=== PATIENT | male | born 1960 | race Caucasian/White ===

== ENCOUNTER 2017-06-15 10:10 | Inpatient (IN) | payer OTHER ==
[2017-06-15] MEDS ORDERED: IPRATROPIUM-ALBUTEROL 3 ML NEB INHALATION PRN (15:14)
--- NOTE | 2017-06-15 15:53 | XR ---
EXAMINATION TYPE: XR chest 2V DATE OF EXAM: 06/15/2017 COMPARISON: 07/13/2013 TECHNIQUE: PA and lateral views submitted. HISTORY: Shortness of breath FINDINGS: The lungs are clear and there is no pneumothorax, pleural effusion, or focal pneumonia. Hypertrophi c change of the spine noted. Suggestion of gastrostomy tube. IMPRESSION: 1. No acute process.
[2017-06-15] MEDS ORDERED: LIPASE 5,000/PROTEASE 17,000/AMYLASE 27,0000 PO PRN (16:04)
[2017-06-15 16:11] LABS: Basophils % (A) 0 %; Eosinophils % (A) 0 %; HCT 42.1 % (39.0-53.0); HGB 13.5 gm/dL (13.0-17.5); Lymphocytes # (A) 0.8 k/uL (1.0-4.8); Lymphocytes % (A) 12 %; MCH 31.4 pg (25.0-35.0); Mean Platelet Volume 7.3; Monocytes # (A) 0.2 k/uL (0-1.0); Monocytes % (A) 3 %; Neutrophils # (A) 5.6 k/uL (1.3-7.7); Neutrophils % (A) 84 %; Platelet Count 224 k/uL (150-450); RDW 14.2 % (11.5-15.5); WBC 6.7 k/uL (3.8-10.6)
[2017-06-15] MEDS ORDERED: ZENPEP 20000 UNIT PO PRN (16:13)
[2017-06-15] MEDS: SODIUM CHLORIDE 0.9% 1,000 ML IV SCH (16:17)
[2017-06-15 16:21] LABS: ALT 38 U/L (21-72); AST 18 U/L (17-59); Alkaline Phosphatase 71 U/L (38-126); Anion Gap 10 mmol/L; Blood Urea Nitrogen 28 mg/dL (9-20); Calcium 9.1 mg/dL (8.4-10.2); Carbon Dioxide 22 mmol/L (22-30); Chloride 107 mmol/L (98-107); Glucose 132 mg/dL (74-99); Magnesium 1.8 mg/dL (1.6-2.3); Potassium 4.7 mmol/L (3.5-5.1); Sodium 139 mmol/L (137-145); Total Bilirubin 0.5 mg/dL (0.2-1.3); Total Protein 6.8 g/dL (6.3-8.2)
[2017-06-15] MEDS: LOSARTAN 50 MG TAB PO SCH (16:46)
[2017-06-15] MEDS: BUMETANIDE 1 MG TAB PO SCH (16:46)
[2017-06-15] MEDS: LEVOFLOXACIN 750 MG TAB PO SCH (16:46)
[2017-06-15] MEDS: MULTIVITAMINS, THERA 1 EACH TAB PO SCH (16:46)
[2017-06-15] MEDS: CHLORPHEN-HYDROcod 8-10mg/5ml 5 ML ORAL.SYRG PO SCH ×2 (16:48→22:12)
[2017-06-15] MEDS: IPRATROPIUM-ALBUTEROL 3 ML NEB INHALATION SCH ×2 (16:55→20:51)
[2017-06-15] MEDS ORDERED: LIPASE 5,000/PROTEASE 17,000/AMYLASE 27,0000 PO SCH (17:30)
[2017-06-15] MEDS: ZENPEP 20000 UNIT PO SCH (18:14)
[2017-06-15] MEDS: methylPREDNISolone SOD SUCCI 125 MG/2 ML VIAL IV SCH ×2 (18:15→23:21)
[2017-06-15] MEDS ORDERED: IBUPROFEN 800 MG TAB PO PRN (20:12)
[2017-06-15] MEDS: HYDROcodone/APAP 10-325MG 1 EACH TAB PO PRN (20:42)
[2017-06-15] MEDS: MONTELUKAST 10 MG TAB PO SCH (20:42)
[2017-06-15] MEDS: BUDESONIDE 1 MG/2 ML NEBU INHALATION SCH (20:51)
[2017-06-15] MEDS: FORMOTEROL FUMARATE 20 MCG/2 ML NEBU INHALATION SCH (20:51)
--- NOTE | 2017-06-15 23:00 | HP ---
HISTORY AND PHYSICAL DATE OF ADMISSION: 06/15/2017 PRESENTING COMPLAINT: Short of breath, wheezing. HISTORY OF PRESENTING COMPLAINT: A very pleasant 57-year-old patient of Dr. 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 Velasco. Chronic stable medical conditions include chronic pancreatitis, has had a pancreatic stent; obstructive sleep apnea, does not use CPAP machine, has a feeding tube which he supplements with oral feeding, insomnia and bilateral tinnitus. A week ago, patient developed increasing wheezing, cough, a little sputum. No fever. He went down to see Dr. Velasco in the office, was given antibiotics started on Zithromax. Symptoms really did not improve. Went back 2 days ago and patient was given a steroid injection and has to come back. Patient is still having some wheezing, shortness of breath with a cough. No fever. Decreased appetite. Hence, patient is admitted from the office. REVIEW OF SYSTEMS: CONSTITUTIONAL: Tired. HEENT: None. RESPIRATORY: As above. CARDIOVASCULAR: None. GASTROINTESTINAL: None. GENITOURINARY: None. MUSCULOSKELETAL: None. DERMATOLOGICAL: None. HEMATOLOGIC: None. LYMPHATIC: None. PSYCHIATRY: None. NEUROLOGICAL: None. PAST MEDICAL HISTORY: Chronic pancreatitis, chronic pain syndrome, asthma/COPD, pancreatic stent, obstructive sleep apnea, does not use CPAP machine; feeding tube, kidney stones, insomnia, bilateral tinnitus. PAST SURGICAL HISTORY: Cholecystectomy, orthopedic surgery feeding tube, EGD, colonoscopy, bronchoscopy, lipoma excision, left proximal humerus, left knee arthroscopy, right hand crush injury with surgeries. SOCIAL HISTORY: Lives at home with his and a daughter, grandson. Has a feeding tube. No smoking. No alcohol. FAMILY HISTORY: Father had congestive heart failure, also diabetes. HOME MEDICATIONS: 1. Zenpep 5000 units/20,000 units p.o. 5 times a day. 2. Vitamin A 8000 units p.o. daily. 3. Multivitamin 1 tablet p.o. daily. 4. Cozaar 50 mg p.o. daily. 5. Vitamin D3 1000 units p.o. daily. 6. Singulair 10 mg q.h.s. 7. Motrin 800 mg p.o. t.i.d. p.r.n. 8. [place] 10 1 tablet every 6 hours p.r.n. 9. Bumex 2 mg p.o. daily. 10.Symbicort 160/4.5, 2 puffs b.i.d. ALLERGIES: None. EXAMINATION: Temperature 97.7, pulse 73, respirations 16, blood pressure 140/85, pulse ox 96% on room air. GENERAL APPEARANCE: Well-built, BMI of 38. Sitting up, tired-appearing. EYES: Pupils equal. Conjunctivae normal. HEENT: Oral cavity normal. NECK: JVD not raised. Mass not palpable. RESPIRATORY: Effort increased. LUNGS: Decreased breath sounds. Some expiratory wheezing. CARDIOVASCULAR: First and second sounds normal. No edema. ABDOMEN: Soft, nontender. Liver and spleen not palpable. LYMPHATIC: No lymph node palpable in neck or axillae. PSYCHIATRY: Alert and oriented x3. Mood and affect normal. NEUROLOGICAL: Pupils equal. Cranial nerves grossly intact. Power and sensation grossly intact. INVESTIGATIONS: White count 6.7, hemoglobin 13.5. Potassium 4.7, BUN 28, creatinine 0.8. ASSESSMENT: 1. Moderate persistent asthma with acute exacerbation with possible acute bronchitis, having failed outpatient treatment with a course of antibiotic and steroids. 2. Obesity; BMI 38. 3. Chronic pancreatitis. Patient on enzyme supplements. 4. Chronic pain syndrome. 5. Obstructive sleep apnea, does not use a CPAP machine. 6. Chronic feeding tube. 7. Kidneys stones, asymptomatic. 8. Chronic insomnia. 9. Bilateral chronic tinnitus. PLAN: Home medications are resumed. Patient is put on nebulized bronchodilators, steroids, Lovenox for DVT prophylaxis. Pulmonary was consulted. Care was discussed with the patient. The patient may have a significant viral component. I am not sure. Antibiotics will be held. Will await further input from Pulmonary. MMODL / IJN: [id number] /
[2017-06-16] MEDS: IPRATROPIUM-ALBUTEROL 3 ML NEB INHALATION SCH ×6 (00:24→19:33)
[2017-06-16] MEDS: methylPREDNISolone SOD SUCCI 125 MG/2 ML VIAL IV SCH ×4 (06:01→23:52)
[2017-06-16] MEDS: SODIUM CHLORIDE 0.9% 1,000 ML IV SCH (06:01)
[2017-06-16] MEDS: BUDESONIDE 1 MG/2 ML NEBU INHALATION SCH ×2 (07:34→19:33)
[2017-06-16] MEDS: FORMOTEROL FUMARATE 20 MCG/2 ML NEBU INHALATION SCH ×2 (07:34→19:33)
[2017-06-16 07:37] LABS: Basophils % (A) 0 %; Eosinophils % (A) 0 %; HCT 42.3 % (39.0-53.0); HGB 13.4 gm/dL (13.0-17.5); Lymphocytes # (A) 0.6 k/uL (1.0-4.8); Lymphocytes % (A) 9 %; MCH 30.9 pg (25.0-35.0); MCHC 31.6 g/dL (31.0-37.0); MCV 97.8 fL (80.0-100.0); Mean Platelet Volume 7.2; Monocytes # (A) 0.2 k/uL (0-1.0); Monocytes % (A) 3 %; Neutrophils # (A) 6.1 k/uL (1.3-7.7); Neutrophils % (A) 87 %; Platelet Count 265 k/uL (150-450); RBC 4.33 m/uL (4.30-5.90); RDW 13.7 % (11.5-15.5); WBC 6.9 k/uL (3.8-10.6)
[2017-06-16 07:47] LABS: ALT 38 U/L (21-72); AST 14 U/L (17-59); Albumin 3.8 g/dL (3.5-5.0); Alkaline Phosphatase 70 U/L (38-126); Anion Gap 11 mmol/L; Blood Urea Nitrogen 24 mg/dL (9-20); Calcium 9.1 mg/dL (8.4-10.2); Carbon Dioxide 24 mmol/L (22-30); Chloride 103 mmol/L (98-107); Glucose 142 mg/dL (74-99); Magnesium 1.7 mg/dL (1.6-2.3); Sodium 138 mmol/L (137-145); Total Bilirubin 0.5 mg/dL (0.2-1.3); Total Protein 6.4 g/dL (6.3-8.2)
[2017-06-16] MEDS: ZENPEP 20000 UNIT PO SCH ×3 (08:02→17:43)
[2017-06-16] MEDS: CHLORPHEN-HYDROcod 8-10mg/5ml 5 ML ORAL.SYRG PO SCH ×2 (08:35→22:04)
[2017-06-16] MEDS: ENOXAPARIN 40 MG/0.4 ML SYRINGE SQ SCH (08:36)
[2017-06-16] MEDS: HYDROcodone/APAP 10-325MG 1 EACH TAB PO PRN ×3 (08:36→22:06)
[2017-06-16] MEDS: BUMETANIDE 1 MG TAB PO SCH (08:36)
[2017-06-16] MEDS: CHOLECALCIFEROL 1,000 UNIT TAB PO SCH (08:37)
[2017-06-16] MEDS: LOSARTAN 50 MG TAB PO SCH (08:37)
[2017-06-16] MEDS ORDERED: NON-FORMULARY DRUG (Bumetanide [Bumex] 2 MG) PO SCH (09:00)
[2017-06-16] MEDS: MULTIVITAMINS, THERA 1 EACH TAB PO SCH (11:58)
--- NOTE | 2017-06-16 15:34 | P.CNPUL ---
History of Present Illness Consult date: 06/16/17 Reason for consult: dyspnea, asthma History of present illness: 57-year-old male patient with known history of severe persistent bronchial asthma maintained on a combination of Symbicort and Singulair and Ventolin rescue inhaler listed basis. The patient was doing well until around 10 days ago when he started having increased asthma exacerbation. He had increased chest that is so wheezing and shortness of breath and he was progressively getting worse. No fever or chills. No hemoptysis. No pleurisy. He presented to the office and he was seen by Sapphire Morgan NP and the patient was given a Depo -Medrol shot and a prednisone burst taper starting with 40 mg by mouth daily and he was given a course of Z-Delfino. 3-4 days following that the patient was not getting better. He came back to the office and he was seen by Dr. Orr where he was given another Depo-Medrol shot and he was asked to increase his prednisone dose up to 60 mg by mouth daily. He failed to improve and he came back to the office and at that point he was hospitalized for acute asthma exacerbation and has failed outpatient treatment. The patient was started on systemic steroids. The patient was started on Levaquin. Chest x-rays. Any acute pulmonary infiltrates. Influenza screen has not been done yet. No chills. No fever. No swelling lower extremities. No orthopnea. No sick contacts. No exposure or inhalation of any toxic respiratory agents. No nausea. No vomiting. No abdominal pain. No sinus disease pain no nasal polyposis. Review of Systems Constitutional: no excess weight gain, no excess weight loss, no loss of appetite, no fever, no fatigue, diminished activity, fatigue Eyes Eyes: no eye pain, no blurry vision, no eye redness, no eye itchiness, no eye swelling, no eye discharge ENMT ENMT: no ear pain, no ear discharge, no hearing loss, no swelling, no sore throat, no hoarseness, no mouth lesions, no nasal discharge, sinus pressure, congestion, runny nose Cardiovascular Cardiovascular: no chest pain, no rapid heart rate, no cyanosis, no pallor Respiratory Respiratory: no pain with respiration, normal breathing sounds, normal respiration rate, cough, mucoid sputum, wheezing, chest tightness, difficulty breathing Gastrointestinal GI: no difficulty swallowing, no abdominal pain, no nausea, no vomiting, no diarrhea, no constipation, no blood in stools Genitourinary General: no blood in urine, no pain during urination, no increased frequency of urination, no voiding urgency Musculoskeletal Musculoskeletal: no soft tissue swelling, no joint swelling, no limited motion, no myalgia Skin Skin: no pain, no itchiness, no skin redness, no rash, no hives, no skin lesions , no swelling, no bruising Neurological symptoms Neuro: no numbness, no weakness, no tingling, no burning, no shooting pain, no headache, no diziness, no loss of consciousness Endocrine Endocrine: no increased thirst, no temperature intolerance Psychiatric Psych: no depression, no sleep disturbances, feeling safe in relationship, no alcohol abuse Hematologic/Lymphatic Hematologic/Lymphatic no swollen glands Allergic/Immunologic Allergy/Immunologic: no sinus pressure, no itching Past Medical History Past Medical History: Asthma, Hypertension, Osteoarthritis (OA), Pneumonia, Sleep Apnea/CPAP/BIPAP Additional Past Medical History / Comment(s): History of chronic pancreatitis was seen and evaluated continue [facility], chronic bronchial asthma moderately severe in nature, degenerative arthritis, obstructive sleep apnea, gout, nephrolithiasis, chronic insomnia, tinnitus bilaterally, history of right hand crush injury requiring multiple surgeries, chronic back pain, hypertension , acid reflux History of Any Multi-Drug Resistant Organisms: None Reported Past Surgical History: Cholecystectomy, Orthopedic Surgery Additional Past Surgical History / Comment(s): Feeding tube, EGD/colonoscopy, bronchoscopy, lipoma excision L proximal humerus, left knee arthroscopies Past Anesthesia/Blood Transfusion Reactions: No Reported Reaction Smoking Status: Never smoker - Past Family History Father Family Medical History: Congestive Heart Failure (CHF), Diabetes Mellitus Additional Family Medical History / Comment(s): Father at the age of 75 yrs from CHF. Mother Family Medical History: Congestive Heart Failure (CHF), Diabetes Mellitus Additional Family Medical History / Comment(s): Mother at the age of 84 yrs from CHF Medications and Allergies Home Medications Medication Instructions Recorded Confirmed Type Montelukast [Singulair] 10 mg PO HS 01/16/14 06/15/17 History Budesonide-Formot 160-4.5 Mcg 2 puff INHALATION BID 12/30/15 06/15/17 History [Symbicort 160-4.5 Mcg Inhaler] Bumetanide [BUMEX] 2 mg PO DAILY 12/30/15 06/15/17 History HYDROcodone/APAP 10-325MG [[place] 1 tab PO Q6H PRN 12/30/15 06/15/17 History 10-325] Cholecalciferol [Vitamin D3] 1,000 unit PO DAILY 06/15/17 06/15/17 History Ibuprofen [Motrin] 800 mg PO TID PRN 06/15/17 06/15/17 History Lipase/Protease/Amylase [Zenpep Dr 20,000 units PO 5XD 06/15/17 06/15/17 History 5,000 Units Capsule] Losartan Potassium [Cozaar] 50 mg PO DAILY 06/15/17 06/15/17 History Multivitamins, Thera [Multivitamin 1 tab PO DAILY 06/15/17 06/15/17 History (formulary)] Vitamin A 8,000 unit PO DAILY 06/15/17 06/15/17 History Allergies Allergy/AdvReac Type Severity Reaction Status Date / Time No Known Allergies Allergy Verified 06/15/17 13:57 Physical Exam Vitals: Vital Signs Temp Pulse Pulse Resp BP Pulse Ox 06/16/17 14:56 99.1 F 93 18 123/78 97 06/16/17 11:44 80 06/16/17 11:33 80 06/16/17 08:00 86 18 06/16/17 07:53 76 06/16/17 07:46 72 06/16/17 07:34 76 06/16/17 07:00 97.9 F 86 18 134/83 96 06/16/17 04:59 72 06/16/17 04:40 72 06/16/17 00:36 76 06/16/17 00:24 72 06/15/17 23:00 98.0 F 87 16 140/96 93 L 06/15/17 21:09 76 06/15/17 21:03 72 06/15/17 21:02 72 06/15/17 20:53 72 06/15/17 17:04 76 06/15/17 16:55 76 06/15/17 16:00 73 16 Intake and Output 06/16/17 06/16/17 06/16/17 06:59 14:59 22:59 Intake Total 900 240 Balance 900 240 Intake: Intake, IV Titration 600 Amount Sodium Chloride 0.9% 1, 600 000 ml @ 75 mls/hr IV . [id number] [facility] Rx#:[id number] Oral 300 240 Other: Voiding Method Toilet Toilet # Voids 2 Weight 120 kg Patient Weight 06/17/17 06:59 Weight 120 kg Constitutional General Appearance: appears stated age, obesity Level of Distress: no acute distress Ambulation: ambulating normally ENMT Nasal Mucosa: no discharge, pale, swollen, edematous Septum: not markedly deformed Turbinates: normal turbinate Lips, Teeth, and Gums: normal lips, normal dentition, normal gums Oral Mucosa: no ulcer, no mass, no pallor, moist, no cyanosis, no inflammation, no swelling, no rash, no leukoplakia Tongue: no erythema, no lesions, no enlargement, no swelling, no deviation Posterior pharynx: no enlargement, no exudate, no white patches, no ulcers, no mass, erythema Neck Neck: supple, trachea midline, no masses, Full ROM Thyroid: no enlargement, non-tender, no nodules Jugular Veins: normal jugular venous pressure Lungs Respiratory effort: dyspneic Inspection: normal chest wall expansion, normal curve, no deformity, no tenderness, no swelling Auscultation: no rales/crackles, no rhonchi, wheezing,expiratory,bilaterally, midlung yepez Cardiovascular Precordial Exam: non displaced focal PMI, no heaves, no precordial thrills Heart Rate And Rhythm: normal heart rate and rhythm Heart Sounds: normal s1, no physiologically split S2, no pericardial friction rub, no gallop, no click Systolic Murmur: no systolic murmurs Observation/Palpation of peripheral vascular system: no cyanosis, no edema, normal dorsalis pedis, normal posterior tibialis Abdomen Inspection and Palpation: soft, non-distended, no tenderness, no masses Liver: non-tender, no hepatomegaly Spleen: non-tender, no splenomegaly Bowel Sounds: normal, no abdominal bruits Lymphatic: no cervical LAD, no supraclavicular LAD Musculoskeletal: Motor Strength and Tone: normal motor strength, normal bulk, normal tone Gait and Station: normal gait Joints, Bones, and Muscles: normal movement of all extremities, no bony abnormalities, no contractures, no malalignment, no tenderness Extremities Inspection/Palpation of digits and nails: no clubbing, no cyanosis, no petechiae , no infection, no nodular lesions, no ischemia, no edema Skin Inspection and palpation: no rash, no lesions, no jaundice, normal turgor Neurologic Mental Status/Orientation: oriented to person, oriented to place, oriented to problem/situation, oriented to time Mood/Affect: normal mood, normal affect Results - Laboratory Findings CBC and BMP: 06/16/17 07:06 06/16/17 07:06 Abnormal lab findings: Abnormal Labs 06/15/17 06/15/17 06/16/17 15:44 15:44 07:06 Lymphocytes # 0.8 L 0.6 L BUN 28 H Glucose 132 H AST 06/16/17 07:06 Lymphocytes # BUN 24 H Glucose 142 H AST 14 L - Diagnostic Findings Chest x-ray: image reviewed Assessment and Plan Plan: Assessment 1 moderately severe bronchial asthma with an acute exacerbation that has failed outpatient therapy. 2 shortness of breath again to above 3 hypertension 4 history of chronic pancreatitis 5 obstructive sleep apnea 6 chronic back pain 7 history of nephrolithiasis Plan Agree on the current treatment. Continue bronchodilators discontinue steroids. Influenza screen. Chest x-ray is negative. Continue following up this patient and anticipate recovery within next 24-48 hours. We'll follow.
[2017-06-16] MEDS: LEVOFLOXACIN 750 MG TAB PO SCH (15:40)
--- NOTE | 2017-06-16 15:43 | PN ---
PROGRESS NOTE DATE OF SERVICE: 06/16/17 ATTENDING NOTE: Patient seen and examined by me. I discussed with nurse practitioner, Juanytrista. Patient admitted with asthma exacerbation. Some wheezing and cough still present. PHYSICAL EXAMINATION: Temperature 97.9, pulse 56, respiratory 18, blood pressure 134/83, pulse ox 96% on room air. LUNGS: Decreased breath sounds. Prolonged expiration and wheezing. CARDIOVASCULAR: First and second sounds normal. The patient is sitting up in a chair, did tolerate his meals. ASSESSMENT: 1. Moderate persistent asthma with acute exacerbation from acute bronchitis and failed outpatient treatment, slow to respond. 2. Other medical problems. PLAN: Continue medication and treatment plan including nebulized and steroids. Follow with Pulmonary. MMODL / IJN: [id number] /
--- NOTE | 2017-06-16 16:13 | P.PN ---
Progress Note - Text Progress Note Date: 06/16/17 DATE OF SERVICE: 06/16/2017 PRESENTING COMPLAINT: Increasing shortness of breath HISTORY OF PRESENT ILLNESS: 57-year-old male was followed by Dr. Velasco developed increasing wheezing cough with some sputum production. Saw Dr. Orr in the office received antibiotic therapy symptoms did not improve with back 2 days ago and was given a steroid injection and continues to have some wheezing shortness of breath with a cough admitted for the same. INTERVAL HISTORY: 06/16/2017 Patient lying in bed appears somewhat uncomfortable. States his breathing is not much better than it was when he arrived yesterday. Continues to have some wheezing cough with sputum production. No fever. Appetite is low but states his appetite is generally low. Ambulatory in the room and patel ways. Last BM 06/16/2017. REVIEW OF SYSTEMS: Done for constitutional ,cardiovascular, GI, pulmonary with relevant findings as above. CURRENT MEDICATIONS [place], DuoNeb, Pulmicort, Bumex, Tussionex, cholecalciferol, Lovenox, Perforomist, Motrin, Levaquin, Cozaar 50 g by mouth daily, soy [place] 61 g IV every 6 hours, singular 10 mg by mouth at bedtime, Jake Pep DR 20,000 units. PHYSICAL EXAM VITAL SIGNS: Temperature 97.9, pulse 86, respiratory rate 18, blood pressure 134/83, oxygen saturation 96% on room air. GENERAL APPEARANCE: Lying in bed, not in distress. EYES: Pupils equal. Conjunctiva normal. NECK: JVD not raised. Mass not palpable. RESPIRATORY: Respiratory effort increased. Lungs diminished with expiratory wheezing to auscultation. CARDIOVASCULAR: First and second sounds normal. No edema. ABDOMEN: Soft. Liver and spleen not palpable. No tenderness. No mass palpable. PSYCHIATRY: Alert and oriented x3. Mood and affect normal. INVESTIGATIONS: LABS: CBC unremarkable, BUN 24, glucose 142, ASSESSMENT: -Moderate persistent asthma with acute exacerbation and possible acute bronchitis having failed outpatient treatment with a course of antibiotics and steroids. -Obesity, body mass index 38. -Chronic pancreatitis. Patient on enzyme supplement. -Chronic pain syndrome. -Obstructive sleep apnea does not use a CPAP machine. -Chronic feeding tube. -Kidney stones, asymptomatic. -Chronic insomnia. -Bilateral chronic tinnitus. PLAN: Continue current treatment plan with bronchodilators, steroids discontinued per pulmonology. Plan of care discussed with the patient at bedside we will continue to follow closely. 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 Millan
[2017-06-16] MEDS: MONTELUKAST 10 MG TAB PO SCH (22:04)
[2017-06-16] MEDS: ZOLPIDEM 5 MG TAB PO SCH (22:05)
[2017-06-17] MEDS: IPRATROPIUM-ALBUTEROL 3 ML NEB INHALATION SCH ×7 (00:05→23:28)
[2017-06-17] MEDS: methylPREDNISolone SOD SUCCI 125 MG/2 ML VIAL IV SCH ×2 (05:25→12:17)
[2017-06-17] MEDS: BUDESONIDE 1 MG/2 ML NEBU INHALATION SCH ×2 (07:11→20:56)
[2017-06-17] MEDS: FORMOTEROL FUMARATE 20 MCG/2 ML NEBU INHALATION SCH ×2 (07:13→20:57)
[2017-06-17] MEDS: ZENPEP 20000 UNIT PO SCH ×3 (07:45→17:52)
[2017-06-17] MEDS: ENOXAPARIN 40 MG/0.4 ML SYRINGE SQ SCH (07:46)
[2017-06-17] MEDS: BUMETANIDE 1 MG TAB PO SCH (07:46)
[2017-06-17] MEDS: MULTIVITAMINS, THERA 1 EACH TAB PO SCH (07:47)
[2017-06-17] MEDS: CHOLECALCIFEROL 1,000 UNIT TAB PO SCH (07:47)
[2017-06-17] MEDS: CHLORPHEN-HYDROcod 8-10mg/5ml 5 ML ORAL.SYRG PO SCH ×2 (07:51→20:32)
[2017-06-17] MEDS: LOSARTAN 50 MG TAB PO SCH (07:53)
[2017-06-17] MEDS: HYDROcodone/APAP 10-325MG 1 EACH TAB PO PRN ×2 (09:16→17:54)
--- NOTE | 2017-06-17 13:46 | P.PN ---
Subjective Progress Note Date: 06/17/17 Principal diagnosis: Acute exacerbation of severe persistent chronic bronchial asthma 57-year-old male patient with known history of severe persistent bronchial asthma maintained on a combination of Symbicort and Singulair and Ventolin rescue inhaler listed basis. The patient was doing well until around 10 days ago when he started having increased asthma exacerbation. He had increased chest that is so wheezing and shortness of breath and he was progressively getting worse. No fever or chills. No hemoptysis. No pleurisy. He presented to the office and he was seen by Sapphire Poole NP and the patient was given a Depo -Medrol shot and a prednisone burst taper starting with 40 mg by mouth daily and he was given a course of Z-Delfino. 3-4 days following that the patient was not getting better. He came back to the office and he was seen by Dr. Velasco where he was given another Depo-Medrol shot and he was asked to increase his prednisone dose up to 60 mg by mouth daily. He failed to improve and he came back to the office and at that point he was hospitalized for acute asthma exacerbation and has failed outpatient treatment. The patient was started on systemic steroids. The patient was started on Levaquin. Chest x-rays. Any acute pulmonary infiltrates. Influenza screen has not been done yet. No chills. No fever. No swelling lower extremities. No orthopnea. No sick contacts. No exposure or inhalation of any toxic respiratory agents. No nausea. No vomiting. No abdominal pain. No sinus disease pain no nasal polyposis. The patient is seen again today 06/17/2017 in follow-up on the regular medical floor. He is awake and alert in no acute distress. He is resting quite comfortably in bed. He states he is somewhat better today as compared to yesterday. Not quite back to his baseline. He is still quite dyspneic on minimal exertion. He is still bronchospastic and wheezing. He is maintaining good O2 saturations in the 90s on room air. He's been afebrile. Influenza screen was negative. Blood cultures reveal no growth to date. He is continued on DuoNeb inhalations every 4 hours and when necessary, Pulmicort and formoterol inhalations twice a day. Tussionex for his cough, IV Solu-Medrol and Singulair. Objective - Vital Signs Vital signs: Vital Signs Temp 98 F 06/17/17 07:00 Pulse 96 06/17/17 11:17 Resp 20 06/17/17 07:00 BP 138/90 06/17/17 07:00 Pulse Ox 93 L 06/17/17 07:00 Intake & Output 06/16/17 06/17/17 06/17/17 18:59 06:59 18:59 Intake Total 240 1140 Balance 240 1140 Weight 120 kg Intake: Oral 240 1140 Other: Voiding Method Toilet Toilet Toilet # Voids 3 2 - Exam Constitutional General Appearance: appears stated age, obesity Level of Distress: no acute distress Ambulation: ambulating normally ENMT Nasal Mucosa: no discharge, pale, swollen, edematous Septum: not markedly deformed Turbinates: normal turbinate Lips, Teeth, and Gums: normal lips, normal dentition, normal gums Oral Mucosa: no ulcer, no mass, no pallor, moist, no cyanosis, no inflammation, no swelling, no rash, no leukoplakia Tongue: no erythema, no lesions, no enlargement, no swelling, no deviation Posterior pharynx: no enlargement, no exudate, no white patches, no ulcers, no mass, erythema Neck Neck: supple, trachea midline, no masses, Full ROM Thyroid: no enlargement, non-tender, no nodules Jugular Veins: normal jugular venous pressure Lungs Respiratory effort: dyspneic Inspection: normal chest wall expansion, normal curve, no deformity, no tenderness, no swelling Auscultation: no rales/crackles, no rhonchi, wheezing,expiratory,bilaterally, midlung yepez Cardiovascular Precordial Exam: non displaced focal PMI, no heaves, no precordial thrills Heart Rate And Rhythm: normal heart rate and rhythm Heart Sounds: normal s1, no physiologically split S2, no pericardial friction rub, no gallop, no click Systolic Murmur: no systolic murmurs Observation/Palpation of peripheral vascular system: no cyanosis, no edema, normal dorsalis pedis, normal posterior tibialis Abdomen Inspection and Palpation: soft, non-distended, no tenderness, no masses Liver: non-tender, no hepatomegaly Spleen: non-tender, no splenomegaly Bowel Sounds: normal, no abdominal bruits Lymphatic: no cervical LAD, no supraclavicular LAD Musculoskeletal: Motor Strength and Tone: normal motor strength, normal bulk, normal tone Gait and Station: normal gait Joints, Bones, and Muscles: normal movement of all extremities, no bony abnormalities, no contractures, no malalignment, no tenderness Extremities Inspection/Palpation of digits and nails: no clubbing, no cyanosis, no petechiae , no infection, no nodular lesions, no ischemia, no edema Skin Inspection and palpation: no rash, no lesions, no jaundice, normal turgor Neurologic Mental Status/Orientation: oriented to person, oriented to place, oriented to problem/situation, oriented to time Mood/Affect: normal mood, normal affect - Labs CBC & Chem 7: 06/16/17 07:06 06/16/17 07:06 Labs: Microbiology - Last 24 Hours (Table) 06/15/17 16:19 Blood Culture - Preliminary Blood No Growth after 24 hours 06/15/17 15:44 Blood Culture - Preliminary Blood No Growth after 24 hours Assessment and Plan Assessment: Assessment 1 moderately severe bronchial asthma with an acute exacerbation that has failed outpatient therapy. 2 shortness of breath again to above 3 hypertension 4 history of chronic pancreatitis 5 obstructive sleep apnea 6 chronic back pain 7 history of nephrolithiasis Plan The patient was seen and evaluated by Dr. Salguero. The patient is improved but still not near his baseline. He is still quite bronchospastic and wheezy. He is maintaining good O2 saturations on room air. We'll continue with his current treatment including IV Solu-Medrol, DuoNeb's, Pulmicort and [place] inhalations twice a day, Singulair, Tussionex. He is on empiric antibiotics in the form of Levaquin. He is on Lovenox for DVT prophylaxis. We will increase his activity as tolerated. We'll continue to follow make further recommendations based on his clinical status. Probably needs another 24-48 hours. I, the cosigning physician, have performed a history and physical examination on the patient. Lung sounds have bilateral end expiratory wheezing. Diminished. Maintaining good O2 saturations in the 90s on room air. I have discussed the assessment and plan of care with my nurse practitioner, Sapphire Poole. I attest the above documented note as dictated by her.
--- NOTE | 2017-06-17 17:15 | P.PN ---
Progress Note - Text Progress Note Date: 06/17/17 DATE OF SERVICE: 06/17/2017 PRESENTING COMPLAINT: Increasing shortness of breath HISTORY OF PRESENT ILLNESS: 57-year-old male was followed by Dr. Velasco developed increasing wheezing cough with some sputum production. Saw Dr. Orr in the office received antibiotic therapy symptoms did not improve with back 2 days ago and was given a steroid injection and continues to have some wheezing shortness of breath with a cough admitted for the same. INTERVAL HISTORY: 06/17/2017: Patient sitting up in a chair appears comfortable. Breathing is improved some. Remains afebrile. Continues to have a very coarse cough with minor sputum production. Appetite is low eating approximately 50% of what we give him. Ambulatory in the room and patel ways. Last BM 06/16/2017. 06/16/2017 Patient lying in bed appears somewhat uncomfortable. States his breathing is not much better than it was when he arrived yesterday. Continues to have some wheezing cough with sputum production. No fever. Appetite is low but states his appetite is generally low. Ambulatory in the room and patel ways. Last BM 06/16/2017. REVIEW OF SYSTEMS: Done for constitutional ,cardiovascular, GI, pulmonary with relevant findings as above. CURRENT MEDICATIONS [place], DuoNeb, Pulmicort, Bumex, Tussionex, cholecalciferol, Lovenox, Perforomist, Motrin, Levaquin, Cozaar 50 g by mouth daily, Solu-Medrol 60 mg IV every 6 hours, singular 10 mg by mouth at bedtime, Jake Pep DR 20,000 units. PHYSICAL EXAM VITAL SIGNS: Temperature 97.9, pulse 86, respiratory rate 18, blood pressure 134/83, oxygen saturation 96% on room air. GENERAL APPEARANCE: Sitting up in a chair, not in distress. EYES: Pupils equal. Conjunctiva normal. NECK: JVD not raised. Mass not palpable. RESPIRATORY: Respiratory effort increased. Lungs diminished with expiratory wheezing to auscultation. CARDIOVASCULAR: First and second sounds normal. No edema. ABDOMEN: Soft. Liver and spleen not palpable. No tenderness. No mass palpable. PSYCHIATRY: Alert and oriented x3. Mood and affect normal. INVESTIGATIONS: LABS: None new ASSESSMENT: -Moderate persistent asthma with acute exacerbation and possible acute bronchitis having failed outpatient treatment with a course of antibiotics and steroids. -Obesity, body mass index 38. -Chronic pancreatitis. Patient on enzyme supplement. -Chronic pain syndrome. -Obstructive sleep apnea does not use a CPAP machine. -Chronic feeding tube. -Kidney stones, asymptomatic. -Chronic insomnia. -Bilateral chronic tinnitus. PLAN: Continue current treatment plan with bronchodilators, continue current antibiotic therapy. Patient is not quite back to his baseline, discharge planning possibly in the next 24-48 hours. Plan of care discussed with the patient at bedside we will continue to follow closely. SCIENCE WRITER statement: Patient was seen and examined by nurse practitioner Vanessa Gillis and all elements of the case discussed with attending Dr. Millan
[2017-06-17] MEDS: LEVOFLOXACIN 750 MG TAB PO SCH (18:11)
--- NOTE | 2017-06-17 18:20 | PN ---
PROGRESS NOTE DATE OF SERVICE: 06/17/2017. ATTENDING NOTE: Patient was seen and examined by me. I discussed with my nurse practitioner, Ms. Gillis. Patient admitted with asthma exacerbation. Breathing is getting better. Minimal sputum production. Tolerating his diet. EXAMINATION: Temperature 98, pulse 105, respirations 20, blood pressure 130/90, pulse ox 93% on room air. Sitting up on a chair. LUNGS: Improved air entry. Mild wheezing. CARDIOVASCULAR: First and second sounds normal. INVESTIGATIONS: Potassium 4.0. MEDICATIONS: 1. IV Solu-Medrol. 2. DuoNeb. 3. Levaquin. ASSESSMENT: Moderate persistent asthma with acute exacerbation. PLAN: Patient is clinically responding. Follow with Pulmonary. MMODL / IJN: [id number] /
[2017-06-17] MEDS: ZOLPIDEM 5 MG TAB PO SCH (20:32)
[2017-06-17] MEDS: MONTELUKAST 10 MG TAB PO SCH (20:32)
[2017-06-17] MEDS: methylPREDNISolone SOD SUCCI 40 MG/ML 1 ML VIAL IV SCH (23:10)
[2017-06-18] MEDS: IPRATROPIUM-ALBUTEROL 3 ML NEB INHALATION SCH ×5 (03:50→20:33)
[2017-06-18] MEDS: ZENPEP 20000 UNIT PO SCH ×3 (07:27→16:56)
[2017-06-18] MEDS: HYDROcodone/APAP 10-325MG 1 EACH TAB PO PRN ×2 (07:27→17:01)
[2017-06-18] MEDS: methylPREDNISolone SOD SUCCI 40 MG/ML 1 ML VIAL IV SCH ×2 (07:29→16:57)
[2017-06-18] MEDS: CHLORPHEN-HYDROcod 8-10mg/5ml 5 ML ORAL.SYRG PO SCH ×2 (07:31→21:20)
[2017-06-18] MEDS: ENOXAPARIN 40 MG/0.4 ML SYRINGE SQ SCH (07:34)
[2017-06-18] MEDS: MULTIVITAMINS, THERA 1 EACH TAB PO SCH (07:34)
[2017-06-18] MEDS: LOSARTAN 50 MG TAB PO SCH (07:35)
[2017-06-18] MEDS: CHOLECALCIFEROL 1,000 UNIT TAB PO SCH (07:35)
[2017-06-18] MEDS: BUDESONIDE 1 MG/2 ML NEBU INHALATION SCH ×2 (07:39→20:32)
[2017-06-18] MEDS: FORMOTEROL FUMARATE 20 MCG/2 ML NEBU INHALATION SCH ×2 (07:39→20:32)
[2017-06-18] MEDS: BUMETANIDE 1 MG TAB PO SCH (11:00)
--- NOTE | 2017-06-18 15:05 | P.PN ---
Subjective Progress Note Date: 06/18/17 57-year-old male patient with known history of severe persistent bronchial asthma maintained on a combination of Symbicort and Singulair and Ventolin rescue inhaler listed basis. The patient was doing well until around 10 days ago when he started having increased asthma exacerbation. He had increased chest that is so wheezing and shortness of breath and he was progressively getting worse. No fever or chills. No hemoptysis. No pleurisy. He presented to the office and he was seen by Sapphire Poole NP and the patient was given a Depo -Medrol shot and a prednisone burst taper starting with 40 mg by mouth daily and he was given a course of Z-Delfino. 3-4 days following that the patient was not getting better. He came back to the office and he was seen by Dr. Velasco where he was given another Depo-Medrol shot and he was asked to increase his prednisone dose up to 60 mg by mouth daily. He failed to improve and he came back to the office and at that point he was hospitalized for acute asthma exacerbation and has failed outpatient treatment. The patient was started on systemic steroids. The patient was started on Levaquin. Chest x-rays. Any acute pulmonary infiltrates. Influenza screen has not been done yet. No chills. No fever. No swelling lower extremities. No orthopnea. No sick contacts. No exposure or inhalation of any toxic respiratory agents. No nausea. No vomiting. No abdominal pain. No sinus disease pain no nasal polyposis. The patient is seen again today 06/17/2017 in follow-up on the regular medical floor. He is awake and alert in no acute distress. He is resting quite comfortably in bed. He states he is somewhat better today as compared to yesterday. Not quite back to his baseline. He is still quite dyspneic on minimal exertion. He is still bronchospastic and wheezing. He is maintaining good O2 saturations in the 90s on room air. He's been afebrile. Influenza screen was negative. Blood cultures reveal no growth to date. He is continued on DuoNeb inhalations every 4 hours and when necessary, Pulmicort and formoterol inhalations twice a day. Tussionex for his cough, IV Solu-Medrol and Singulair. On 06/18/2017 the patient is also improving. We'll continue diuresis and whether for another 24 hours. No chest pain. No hemoptysis. No pleurisy. No fever chills or night sweats. Tolerating his diet. Objective - Vital Signs Vital signs: Vital Signs Temp 98.4 F 06/18/17 07:00 Pulse 92 06/18/17 11:31 Resp 20 06/18/17 07:00 BP 125/83 06/18/17 07:00 Pulse Ox 95 06/18/17 07:00 Intake & Output 06/17/17 06/18/17 06/18/17 18:59 06:59 18:59 Weight 120 kg Other: Voiding Method Toilet Toilet Toilet # Voids 2 2 3 - Exam Constitutional General Appearance: appears stated age, obesity Level of Distress: no acute distress Ambulation: ambulating normally ENMT Nasal Mucosa: no discharge, pale, swollen, edematous Septum: not markedly deformed Turbinates: normal turbinate Lips, Teeth, and Gums: normal lips, normal dentition, normal gums Oral Mucosa: no ulcer, no mass, no pallor, moist, no cyanosis, no inflammation, no swelling, no rash, no leukoplakia Tongue: no erythema, no lesions, no enlargement, no swelling, no deviation Posterior pharynx: no enlargement, no exudate, no white patches, no ulcers, no mass, erythema Neck Neck: supple, trachea midline, no masses, Full ROM Thyroid: no enlargement, non-tender, no nodules Jugular Veins: normal jugular venous pressure Lungs Respiratory effort: Patient is not showing any signs of dyspnea at rest. Inspection: normal chest wall expansion, normal curve, no deformity, no tenderness, no swelling Auscultation: no rales/crackles, no rhonchi, few wheezing,expiratory,bilaterally ,midlung yepez Cardiovascular Precordial Exam: non displaced focal PMI, no heaves, no precordial thrills Heart Rate And Rhythm: normal heart rate and rhythm Heart Sounds: normal s1, no physiologically split S2, no pericardial friction rub, no gallop, no click Systolic Murmur: no systolic murmurs Observation/Palpation of peripheral vascular system: no cyanosis, no edema, normal dorsalis pedis, normal posterior tibialis Abdomen Inspection and Palpation: soft, non-distended, no tenderness, no masses Liver: non-tender, no hepatomegaly Spleen: non-tender, no splenomegaly Bowel Sounds: normal, no abdominal bruits Lymphatic: no cervical LAD, no supraclavicular LAD Musculoskeletal: Motor Strength and Tone: normal motor strength, normal bulk, normal tone Gait and Station: normal gait Joints, Bones, and Muscles: normal movement of all extremities, no bony abnormalities, no contractures, no malalignment, no tenderness Extremities Inspection/Palpation of digits and nails: no clubbing, no cyanosis, no petechiae , no infection, no nodular lesions, no ischemia, no edema Skin Inspection and palpation: no rash, no lesions, no jaundice, normal turgor Neurologic Mental Status/Orientation: oriented to person, oriented to place, oriented to problem/situation, oriented to time Mood/Affect: normal mood, normal affect - Labs CBC & Chem 7: 06/16/17 07:06 06/16/17 07:06 Labs: Microbiology - Last 24 Hours (Table) 06/15/17 16:19 Blood Culture - Preliminary Blood No Growth after 48 hours 06/15/17 15:44 Blood Culture - Preliminary Blood No Growth after 48 hours Assessment and Plan Plan: Assessment 1 moderately severe bronchial asthma with an acute exacerbation that has failed outpatient therapy. Patient is currently on bronchodilators and systemic steroids and he is gradually improving. 2 shortness of breath again to above 3 hypertension 4 history of chronic pancreatitis 5 obstructive sleep apnea 6 chronic back pain 7 history of nephrolithiasis PLAN We'll continue to follow 24 hours with the intention of proceeding this patient to a prednisone burst taper and possible discharge in a.m.
--- NOTE | 2017-06-18 17:30 | P.PN ---
Progress Note - Text Progress Note Date: 06/18/17 DATE OF SERVICE: 06/18/2017 PRESENTING COMPLAINT: Increasing shortness of breath HISTORY OF PRESENT ILLNESS: 57-year-old male was followed by Dr. Velasco developed increasing wheezing cough with some sputum production. Saw Dr. Orr in the office received antibiotic therapy symptoms did not improve with back 2 days ago and was given a steroid injection and continues to have some wheezing shortness of breath with a cough admitted for the same. INTERVAL HISTORY: 06/18/2017: Patient sitting up in a chair appears comfortable. Breathing is improved quite a bit. Remains afebrile, coughing less, minor sputum production. Appetite is slowly improving but eating about 50% of what we Can. Ambulatory within the room and patel ways. Last BM 06/16/2017. 06/17/2017: Patient sitting up in a chair appears comfortable. Breathing is improved some. Remains afebrile. Continues to have a very coarse cough with minor sputum production. Appetite is low eating approximately 50% of what we give him. Ambulatory in the room and patel ways. Last BM 06/16/2017. 06/16/2017 Patient lying in bed appears somewhat uncomfortable. States his breathing is not much better than it was when he arrived yesterday. Continues to have some wheezing cough with sputum production. No fever. Appetite is low but states his appetite is generally low. Ambulatory in the room and patel ways. Last BM 06/16/2017. REVIEW OF SYSTEMS: Done for constitutional ,cardiovascular, GI, pulmonary with relevant findings as above. CURRENT MEDICATIONS [place], DuoNeb, Pulmicort, Bumex, Tussionex, cholecalciferol, Lovenox, Perforomist, Motrin, Levaquin, Cozaar 50 g by mouth daily, Solu-Medrol 60 mg IV every 6 hours, singular 10 mg by mouth at bedtime, Jake Pep DR 20,000 units. PHYSICAL EXAM VITAL SIGNS: Temperature 98.4, pulse 75, respiratory rate 20, blood pressure 125/83, oxygen saturation 95% on room air. GENERAL APPEARANCE: Sitting up in a chair, not in distress. EYES: Pupils equal. Conjunctiva normal. NECK: JVD not raised. Mass not palpable. RESPIRATORY: Respiratory effort increased. Lungs diminished with expiratory wheezing to auscultation. CARDIOVASCULAR: First and second sounds normal. No edema. ABDOMEN: Soft. Liver and spleen not palpable. No tenderness. No mass palpable. PSYCHIATRY: Alert and oriented x3. Mood and affect normal. INVESTIGATIONS: LABS: None new ASSESSMENT: -Moderate persistent asthma with acute exacerbation and possible acute bronchitis having failed outpatient treatment with a course of antibiotics and steroids improving -Obesity, body mass index 38. -Chronic pancreatitis. Patient on enzyme supplement. -Chronic pain syndrome. -Obstructive sleep apnea does not use a CPAP machine. -Chronic feeding tube. -Kidney stones, asymptomatic. -Chronic insomnia. -Bilateral chronic tinnitus. PLAN: Continue current treatment plan with bronchodilators, continue current antibiotic therapy. Patient to receive prednisone burst taper, discharge planning possibly in the next 24-48 hours. Plan of care discussed with the patient at bedside we will continue to follow closely. WORKING SECOND HAND statement: Patient was seen and examined by nurse practitioner Vanessa Gillis and all elements of the case discussed with attending Dr. Millan
--- NOTE | 2017-06-18 20:33 | PN ---
PROGRESS NOTE DATE OF SERVICE: 06/18/17 ATTENDING NOTE: Patient seen and examined by me. Discussed with nurse practitioner Ms. Gillis. The patient's breathing is much improved. Up and about. Tolerating a diet. PHYSICAL EXAMINATION: Temperature 98.2, pulse 99, respiratory rate 20, blood pressure 143/69, pulse ox 93% on room air. Lungs improved air entry. Cardiovascular: First and second sounds normal. Patient is comfortable. INVESTIGATIONS: No blood work from today. MEDICATIONS: Current medications include IV Solu-Medrol, DuoNeb. ASSESSMENT: Moderate persistent asthma with acute exacerbation, greatly improved. PLAN: Patient's IV Solu-Medrol will be discontinued. Hopefully can be discharged tomorrow. MMODL / IJN: [id number] /
[2017-06-18] MEDS: ZOLPIDEM 5 MG TAB PO SCH (21:21)
[2017-06-18] MEDS: MONTELUKAST 10 MG TAB PO SCH (21:21)
[2017-06-19] MEDS: IPRATROPIUM-ALBUTEROL 3 ML NEB INHALATION SCH ×5 (00:32→15:47)
[2017-06-19 07:44] VITALS: RESP 12
[2017-06-19] MEDS: BUMETANIDE 1 MG TAB PO SCH (07:52)
[2017-06-19] MEDS: ZENPEP 20000 UNIT PO SCH ×2 (07:53→12:34)
[2017-06-19] MEDS: ENOXAPARIN 40 MG/0.4 ML SYRINGE SQ SCH (07:53)
[2017-06-19] MEDS: LOSARTAN 50 MG TAB PO SCH (07:53)
[2017-06-19] MEDS: CHLORPHEN-HYDROcod 8-10mg/5ml 5 ML ORAL.SYRG PO SCH (07:54)
[2017-06-19] MEDS: HYDROcodone/APAP 10-325MG 1 EACH TAB PO PRN (08:03)
[2017-06-19] MEDS: BUDESONIDE 1 MG/2 ML NEBU INHALATION SCH (08:04)
[2017-06-19] MEDS: FORMOTEROL FUMARATE 20 MCG/2 ML NEBU INHALATION SCH (08:04)
[2017-06-19] MEDS ORDERED: predniSONE 20 MG TAB PO SCH (09:00)
[2017-06-19] MEDS: CHOLECALCIFEROL 1,000 UNIT TAB PO SCH (09:04)
[2017-06-19] MEDS: MULTIVITAMINS, THERA 1 EACH TAB PO SCH (12:34)
--- NOTE | 2017-06-19 12:50 | P.PN ---
Subjective Progress Note Date: 06/19/17 Principal diagnosis: Moderately severe bronchial asthma with an acute exacerbation with failed outpatient therapy. 57-year-old male patient with known history of severe persistent bronchial asthma maintained on a combination of Symbicort and Singulair and Ventolin rescue inhaler listed basis. The patient was doing well until around 10 days ago when he started having increased asthma exacerbation. He had increased chest that is so wheezing and shortness of breath and he was progressively getting worse. No fever or chills. No hemoptysis. No pleurisy. He presented to the office and he was seen by Sapphire Poole NP and the patient was given a Depo -Medrol shot and a prednisone burst taper starting with 40 mg by mouth daily and he was given a course of Z-Delfino. 3-4 days following that the patient was not getting better. He came back to the office and he was seen by Dr. Velasco where he was given another Depo-Medrol shot and he was asked to increase his prednisone dose up to 60 mg by mouth daily. He failed to improve and he came back to the office and at that point he was hospitalized for acute asthma exacerbation and has failed outpatient treatment. The patient was started on systemic steroids. The patient was started on Levaquin. Chest x-rays. Any acute pulmonary infiltrates. Influenza screen has not been done yet. No chills. No fever. No swelling lower extremities. No orthopnea. No sick contacts. No exposure or inhalation of any toxic respiratory agents. No nausea. No vomiting. No abdominal pain. No sinus disease pain no nasal polyposis. The patient is seen again today 06/17/2017 in follow-up on the regular medical floor. He is awake and alert in no acute distress. He is resting quite comfortably in bed. He states he is somewhat better today as compared to yesterday. Not quite back to his baseline. He is still quite dyspneic on minimal exertion. He is still bronchospastic and wheezing. He is maintaining good O2 saturations in the 90s on room air. He's been afebrile. Influenza screen was negative. Blood cultures reveal no growth to date. He is continued on DuoNeb inhalations every 4 hours and when necessary, Pulmicort and formoterol inhalations twice a day. Tussionex for his cough, IV Solu-Medrol and Singulair. On 06/18/2017 the patient is also improving. We'll continue diuresis and whether for another 24 hours. No chest pain. No hemoptysis. No pleurisy. No fever chills or night sweats. Tolerating his diet. On 06/19/2017 patient continues to improve, has been ambulating in the patel, no acute distress. On room air, lung sounds are generally diminished, a couple of faint wheezes were auscultated over bilateral upper lobes, otherwise no rhonchi , no significant wheezing, or chest congestion was noted. Vital signs are stable, patient is afebrile, microbiology results have been reviewed, blood culture showed no growth at the 72 hour allen. Sputum culture is pending. Patient has been on oral prednisone, DuoNeb, Pulmicort/Perforomist. Objective - Vital Signs Vital signs: Vital Signs Temp 98.2 F 06/19/17 07:00 Pulse 80 06/19/17 11:50 Resp 12 06/19/17 07:00 BP 129/86 06/19/17 07:00 Pulse Ox 97 06/19/17 07:00 Intake & Output 06/18/17 06/19/17 06/19/17 18:59 06:59 18:59 Intake Total 540 Balance 540 Intake: Oral 540 Other: Voiding Method Toilet Toilet # Voids 3 2 - Exam GENERAL EXAM: Alert, active, comfortable in no apparent distress. HEAD: Normocephalic/atraumatic. EYES: Normal reaction of pupils, equal size. Conjunctiva pink, sclera white. NOSE: Clear with pink turbinates. THROAT: No erythema or exudates. NECK: No masses, no JVD, no thyroid enlargement, no adenopathy. CHEST: No chest wall deformity. Symmetrical expansion. LUNGS: Equal air entry, generally diminished, with a couple faint wheezes over bilateral posterior upper lobes CVS: Regular rate and rhythm, normal S1 and S2, no gallops, no murmurs, no rubs ABDOMEN: Soft, nontender. No hepatosplenomegaly, normal bowel sounds, no guarding or rigidity. EXTREMITIES: No clubbing, no edema, no cyanosis, 2+ pulses and upper and lower extremities. MUSCULOSKELETAL: Muscle strength and tone normal. SPINE: No scoliosis or deformity SKIN: No rashes CENTRAL NERVOUS SYSTEM: Alert and oriented -3. No focal deficits, tone is normal in all 4 extremities. PSYCHIATRIC: Alert and oriented -3. Appropriate affect. Intact judgment and insight. - Labs CBC & Chem 7: 06/16/17 07:06 06/16/17 07:06 Labs: Microbiology - Last 24 Hours (Table) 06/19/17 00:35 Gram Stain - Preliminary Sputum Sputum Culture - Preliminary 06/15/17 16:19 Blood Culture - Preliminary Blood No Growth after 72 hours 06/15/17 15:44 Blood Culture - Preliminary Blood No Growth after 72 hours Assessment and Plan Plan: Assessment 1 moderately severe bronchial asthma with an acute exacerbation that has failed outpatient therapy. Patient is currently on bronchodilators and systemic steroids and he is gradually improving. 2 shortness of breath again to above 3 hypertension 4 history of chronic pancreatitis 5 obstructive sleep apnea 6 chronic back pain 7 history of nephrolithiasis PLAN Patient has significantly improved since admission, he is been up ambulating in the hallway, tolerating activity very well. Denies any worsening dyspnea, currently on room air, with O2 sat at 97%. Hemodynamically stable, afebrile. Blood culture showed no growth, sputum culture is still pending. From pulmonary standpoint patient can be discharged home today on prednisone taper and his maintenance inhalers. I performed a history & physical examination of the patient and discussed their management with my nurse practitioner, Eleni Crowe. I reviewed the nurse practitioner's note and agree with the documented findings and plan of care. Lung sounds are positive for a few faint wheezes, generally diminished, no signs of any respiratory distress. The findings and the impression was discussed with the patient. I attest to the documentation by the nurse practitioner. Time with Patient: Less than 30
[2017-06-19 15:38] VITALS: BP 127/82; PULSE 86; TEMP 98.3
--- NOTE | 2017-06-20 11:20 | DS ---
DISCHARGE SUMMARY FINAL DIAGNOSES: 1. Acute exacerbation of moderate persistent asthma with acute bronchitis, probably viral. 2. Obesity, body mass index 38. 3. Chronic pancreatitis, patient on chronic enzyme supplement. 4. Chronic pain syndrome. 5. Obstructive sleep apnea, does not use a CPAP machine. 6. Chronic feeding tube. 7. Kidney stones, asymptomatic. 8. Chronic insomnia. 9. Bilateral chronic tinnitus. HOSPITAL COURSE: This is a patient who failed outpatient treatment with antibiotics and steroids, of Dr. Velasco. Also has a feeding tube and is also able to tolerate food orally. Presented with wheezing, cough, sputum. Responded well to nebulized bronchodilators and steroids. It was felt patient does was needing the antibiotics. By the time of discharge he was doing much better. CONSULTATIONS: Dr. Salguero. EXAMINATION: Lungs improved air entry. Cardiovascular, first and second sounds normal. Feeding tube in place. DISCHARGE MEDICATIONS: 1. Singulair 10 mg at bedtime. 2. Symbicort 160/4.5 two puffs b.i.d. 3. Bumex 2 mg p.o. daily. 4. [place] 10 one tab every 6 h p.r.n. 5. vitamin D3, 1000 units p.o. daily. 6. Motrin 800 mg p.o. t.i.d. p.r.n. 7. Zenpep 20,000 units p.o. 5 times a day. 8. Cozaar 50 mg p.o. daily. 9. Multivitamin 1 tab p.o. daily. 10.Vitamin A 8000 units p.o. daily. 11.Prednisone taper. FOLLOWUP: 1. Follow up with Dr. Allen on June 20, 2017. 2. Follow up with Dr. Salguero on July 10, 2017. The patient's pulse ox was 96% on room air upon discharge. MMODL / IJN: [id number] /
== END 2017-06-19 16:15 | disposition home or self-care (01) | DRG 202 ==
LOC: 5MS5E 12:40
PROVIDERS: ADMIT Hospitalist; ATTEND Hospitalist
DX: J45.41 Moderate persistent asthma with (acute) exacerbation (principal); K86.1 Other chronic pancreatitis; J44.0 Chronic obstructive pulmonary disease with (acute) lower respiratory infection; E66.9 Obesity, unspecified; G89.4 Chronic pain syndrome; G47.33 Obstructive sleep apnea (adult) (pediatric); F51.04 Psychophysiologic insomnia; J20.9 Acute bronchitis, unspecified; H93.13 Tinnitus, bilateral; M19.90 Unspecified osteoarthritis, unspecified site; M10.9 Gout, unspecified; K21.9 Gastro-esophageal reflux disease without esophagitis; I10 Essential (primary) hypertension; Z79.899 Other long term (current) drug therapy; Z79.1 Long term (current) use of non-steroidal anti-inflammatories (NSAID); Z79.891 Long term (current) use of opiate analgesic; Z68.38 Body mass index [BMI] 38.0-38.9, adult; Z93.1 Gastrostomy status; Z79.51 Long term (current) use of inhaled steroids; Z83.3 Family history of diabetes mellitus; Z82.49 Family history of ischemic heart disease and other diseases of the circulatory system; Z90.49 Acquired absence of other specified parts of digestive tract; Z87.01 Personal history of pneumonia (recurrent); Z87.442 Personal history of urinary calculi
CPT/HCPCS: 71046; 80053; 83735; 85025; 87040; 87070; 87205; 87502; 94640

== ENCOUNTER 2018-03-23 11:07 | Inpatient (IN) | payer BC, OTHER ==
[2018-03-23] MEDS ORDERED: IPRATROPIUM-ALBUTEROL 3 ML NEB INHALATION PRN (13:19)
[2018-03-23] MEDS ORDERED: ACETAMINOPHEN TAB 500 MG TAB PO PRN (14:31)
[2018-03-23] MEDS ORDERED: TEMAZEPAM 15 MG CAP PO PRN (14:31)
[2018-03-23] MEDS: SODIUM CHLORIDE 0.9% 1,000 ML IV SCH (14:36)
[2018-03-23] MEDS: AZITHROMYCIN 500 MG TAB PO SCH (14:59)
[2018-03-23] MEDS: methylPREDNISolone SOD SUCCI 125 MG/2 ML VIAL IV SCH ×2 (14:59→18:02)
[2018-03-23] MEDS: HEPARIN SODIUM,PORCINE 5,000 UNIT/ML 1 ML VIAL SQ SCH ×2 (15:04→20:45)
--- NOTE | 2018-03-23 15:12 | HP ---
HISTORY AND PHYSICAL DATE OF SERVICE: 03/23/2018 CHIEF COMPLAINTS: Shortness of breath and abdominal PEG tubes. HISTORY OF PRESENT ILLNESS: This 57-year-old gentleman with a past medical history of asthma, COPD, hypertension, DJD, history of sleep apnea, history of bronchitis, cholecystectomy, history of pancreatitis, had a PEG tube placed in [facility] which the patient uses occasionally. Patient also was having increasing shortness of breath. The patient was admitted to [facility] for further evaluation and treatment. There is no history of any fever, rigors, chills. No history of any headache, loss of consciousness. The patient has seen Dr. Velasco for shortness of breath and asthma. PAST MEDICAL HISTORY: 1. Asthma. 2. COPD. 3. Hypertension. 4. DJD. 5. History of pneumonia. 6. Sleep apnea. 7. Bronchitis. 8. PEG tube placement. 9. Chronic pancreatitis. MEDICATIONS: 1. Prednisone taper. 2. Augmentin 875 mg p.o. b.i.d. 3. Sinequan 25 mg p.o. at bedtime. 4. [place] 5 mg t.i.d. p.r.n. 5. Zenpep 20,000 p.o. before meals t.i.d. 6. Motrin 800 mg p.o. t.i.d. p.r.n. 7. Vitamin A 8000 units daily. 8. Multivitamins 1 p.o. daily. 9. Singulair 10 mg at bedtime. 10.Cozaar 50 mg p.o. daily. 11.Vitamin D3 1000 daily. 12.Bumex 2 mg p.o. daily. 13.Symbicort 160/4.5 two puffs b.i.d. ALLERGIES: NONE. FAMILY HISTORY: History of CHF, diabetes mellitus in the family. SOCIAL HISTORY: No history of smoking. No history of alcohol intake. REVIEW OF SYSTEMS: ENT: No diminished hearing. No diminished vision. CARDIOVASCULAR SYSTEM: No angina, palpitations. RESPIRATORY SYSTEM: As mentioned earlier. GI: As mentioned earlier. : No dysuria or retention. NERVOUS SYSTEM: No numbness, weakness. ALLERGY/IMMUNOLOGY: No asthma, hayfever. MUSCULOSKELETAL: As mentioned earlier. HEMATOLOGY/ONCOLOGY: No history of anemia. ENDOCRINE: No history of diabetes, hypothyroidism. CONSTITUTIONAL: As mentioned earlier. DERMATOLOGY: Negative. RHEUMATOLOGY: Negative. PSYCHIATRY: As mentioned earlier. PHYSICAL EXAMINATION: Patient is alert and oriented x3. The pulse is 82, blood pressure 154/95, respirations 16, temperature 98.2, pulse ox 96% on room air. HEENT: Conjunctivae normal. Oral mucosa moist. NECK: No jugular venous distention. No carotid bruit. No lymph node enlargement. CARDIOVASCULAR SYSTEM: S1, S2 muffled. RESPIRATORY SYSTEM: Breath sounds diminished at the bases. A few scattered rhonchi and crackles. ABDOMEN: Soft. PEG tube balloon is deflated, taped together to the abdomen. Obese. Non- tender. No mass palpable. No guarding or rigidity. Bowel sounds present. No ascites. LEGS: No edema. No swelling. NERVOUS SYSTEM: Higher functions as mentioned earlier. Moves all 4 limbs. No focal motor or sensory deficit. LYMPHATICS: No lymph node palpable in neck, axillae or groin. SKIN: No ulcer, rash, bleeding. LABS: Labs are at this time pending. ASSESSMENT: 1. Acute bronchial asthma, acute exacerbation. 2. Abnormal placement of the PEG tube. 3. Chronic obstructive pulmonary disease. 4. Hypertension. 5. History of degenerative joint disease. 6. History of pneumonia. 7. History of obstructive sleep apnea. 8. History of chronic pancreatitis. 9. History of chronic bilateral leg edema. 10.History of gout. 11.History of cholecystectomy. 12.History of pancreatic stent. RECOMMENDATIONS AND DISCUSSION: In this 57-year-old gentleman who presented with multiple complex medical issues, we will monitor the patient closely, continue the current medications, continue symptomatic treatment. I recommend CT scan of the abdomen pelvis, chest x-ray. Resume the home medications. Guarded prognosis because of multiple complex medical issues. Further recommendations to follow. MMODL / IJN: [id number] /
[2018-03-23] MEDS: IPRATROPIUM-ALBUTEROL 3 ML NEB INHALATION PRN ×2 (15:45→19:47)
[2018-03-23 16:08] LABS: Basophils % (A) 0 %; Eosinophils # (A) 0.1 k/uL (0-0.7); Eosinophils % (A) 1 %; HCT 40.4 % (39.0-53.0); Lymphocytes % (A) 23 %; MCH 31.1 pg (25.0-35.0); MCHC 32.2 g/dL (31.0-37.0); MCV 96.6 fL (80.0-100.0); Monocytes # (A) 0.4 k/uL (0-1.0); Monocytes % (A) 5 %; Neutrophils # (A) 5.8 k/uL (1.3-7.7); Neutrophils % (A) 68 %; Platelet Count 228 k/uL (150-450); RBC 4.19 m/uL (4.30-5.90); RDW 13.7 % (11.5-15.5); WBC 8.6 k/uL (3.8-10.6)
[2018-03-23 16:21] LABS: ALT 25 U/L (21-72); AST 12 U/L (17-59); Albumin 3.4 g/dL (3.5-5.0); Alkaline Phosphatase 77 U/L (38-126); Anion Gap 5 mmol/L; Blood Urea Nitrogen 20 mg/dL (9-20); Calcium 8.3 mg/dL (8.4-10.2); Carbon Dioxide 29 mmol/L (22-30); Chloride 105 mmol/L (98-107); Glucose 89 mg/dL (74-99); Potassium 4.4 mmol/L (3.5-5.1); Sodium 139 mmol/L (137-145); Total Bilirubin 0.6 mg/dL (0.2-1.3); Total Protein 5.9 g/dL (6.3-8.2)
--- NOTE | 2018-03-23 16:30 | CT ---
EXAMINATION TYPE: CT ChestAbdPelvis wo con DATE OF EXAM: 03/23/2018 COMPARISON: CT abdomen and pelvis September 15, [address] chest November 27, 2012 HISTORY: peg tube dislodgement. Diffuse pain. CT DLP: 1715 mGycm. Automated Exposure Control for Dose Reduction was Utilized. TECHNIQUE: CT scan of the thorax, abdomen and pelvis is performed without IV contrast. FINDINGS: LUNGS: The lungs are grossly clear, there is no concerning parenchymal mass or nodule identified. T here is no pleural effusion or pneumothorax seen. The tracheobronchial tree is patent. MEDIASTINUM: There are no greater than 1 cm hilar or mediastinal lymph nodes. No pericardial effusi on is seen. OTHER: No additional significant abnormality is seen. LIVER/GB: Gallbladder is not visualized and presumed surgically absent. Cholecystectomy clips are red emonstrated. PANCREAS: No significant abnormality is seen. SPLEEN: No significant abnormality is seen. ADRENALS: No significant abnormality is seen. KIDNEYS: There is 1.4 cm low-density exophytic lesion lower pole level left kidney favoring simple cy st axial image 84. Hounsfield units average 0. This is new and enlarging however from prior studies. BOWEL: Few scattered diverticula throughout the colon. No CT evidence for acute diverticulitis. Percu taneous feeding catheter terminates past ligament of Treitz in the proximal jejunum. GENITAL ORGANS: No gross abnormality seen. LYMPH NODES: No greater than 1cm abdominal or pelvic lymph nodes are appreciated. OSSEOUS STRUCTURES: No significant abnormality is seen. OTHER: No significant additional abnormality is seen. IMPRESSION: Percutaneous Feeding tube catheter satisfactory intraluminal position within bowel termin ating in proximal jejunum.
[2018-03-23] MEDS: AMYLASE PO SCH (18:02)
[2018-03-23] MEDS: LIPASE PO SCH (18:02)
[2018-03-23] MEDS: PROTEASE PO SCH (18:02)
[2018-03-23] MEDS: FORMOTEROL FUMARATE 20 MCG/2 ML NEBU INHALATION SCH (19:47)
[2018-03-23] MEDS: BUDESONIDE 1 MG/2 ML NEBU INHALATION SCH (19:47)
[2018-03-23] MEDS: HYDROcodone/APAP 5-325MG 1 EACH TAB PO PRN (20:44)
[2018-03-23] MEDS: DOXEPIN 25 MG CAP PO SCH (20:45)
[2018-03-23] MEDS: MONTELUKAST 10 MG TAB PO SCH (20:46)
[2018-03-24] MEDS: methylPREDNISolone SOD SUCCI 125 MG/2 ML VIAL IV SCH ×5 (00:23→23:54)
[2018-03-24] MEDS: SODIUM CHLORIDE 0.9% 1,000 ML IV SCH ×2 (03:00→15:21)
--- NOTE | 2018-03-24 07:01 | P.CNPUL ---
History of Present Illness Consult date: 03/24/18 Reason for consult: dyspnea, cough, asthma, COPD, hypoxemia Chief complaint: Shortness of breath, cough, difficulty breathing, phlegm production History of present illness: Pulmonary consult dated 03/24/2018 57-year-old male well-known to my service. The patient saw me in the office twice in the last week or so. He came in with appeared to be a COPD/asthma exacerbation. The patient was complaining of cough wheezing shortness of breath and phlegm production. No fever or chills. Despite aggressive outpatient therapy with steroids antibiotics and breathing treatments, the patient did not improve and I offered him admission to the hospital for inpatient therapy. The patient agreed and yesterday when I saw him, I admitted him to the hospital. In addition to COPD/asthma, he has a history of hypertension DJD obesity sleep apnea syndrome and history of idiopathic pancreatitis. He is also status post PEG tube placement for nutrition. The etiology of his pancreatitis has never actually been determined. Currently, the patient states that he is feeling a bit better. Less short of breath. Still coughing. So bringing up phlegm. No fever or chills. No chest pain or chest discomfort. Review of Systems A 14 point review of systems is positive for shortness of breath chest tightness wheezing cough and phlegm production. No fever or chills. No chest pain or chest discomfort. No hemoptysis. Past Medical History Past Medical History: Asthma, COPD, Hypertension, Osteoarthritis (OA), Pneumonia , Sleep Apnea/CPAP/BIPAP Additional Past Medical History / Comment(s): Bronchitis, ANA does not use his device, chronic pancreatitis followed at [facility], uses pancreatic enzyme supplrments and has peg tube, DDD, chronic back pain, abdominal pain, chronic bilateral lower leg edema, gout bilateral feet in the past, bilateral tinnitis, L hand crush injury with surgeries-index finger amp. History of Any Multi-Drug Resistant Organisms: None Reported Past Surgical History: Cholecystectomy, Orthopedic Surgery Additional Past Surgical History / Comment(s): Feeding tube, pacreatic stent, EGDs/colonoscopies, bronchoscopy, lipoma excision L proximal humerus, left knee arthroscopies, L hand crush injury with surgeries. Past Anesthesia/Blood Transfusion Reactions: No Reported Reaction Smoking Status: Never smoker - Past Family History Father Family Medical History: Congestive Heart Failure (CHF), Diabetes Mellitus Additional Family Medical History / Comment(s): Father at the age of 75 yrs from CHF. Mother Family Medical History: Congestive Heart Failure (CHF), Diabetes Mellitus Additional Family Medical History / Comment(s): Mother at the age of 84 yrs from CHF Medications and Allergies Home Medications Medication Instructions Recorded Confirmed Type Montelukast [Singulair] 10 mg PO HS 01/16/14 03/23/18 History Budesonide-Formot 160-4.5 Mcg 2 puff INHALATION BID 12/30/15 03/23/18 History [Symbicort 160-4.5 Mcg Inhaler] Bumetanide [BUMEX] 2 mg PO DAILY 12/30/15 03/23/18 History Cholecalciferol [Vitamin D3] 1,000 unit PO DAILY 06/15/17 03/23/18 History Ibuprofen [Motrin] 800 mg PO TID PRN 06/15/17 03/23/18 History Lipase/Protease/Amylase [Zenpep Dr 20,000 units PO AC-TID 06/15/17 03/23/18 History 5,000 Units Capsule] Losartan Potassium [Cozaar] 50 mg PO DAILY 06/15/17 03/23/18 History Multivitamins, Thera [Multivitamin 1 tab PO DAILY 06/15/17 03/23/18 History (formulary)] Vitamin A 8,000 unit PO DAILY 06/15/17 03/23/18 History Amoxic-Pot Clav 875-125Mg 1 tab PO Q12HR 03/23/18 03/23/18 History [Augmentin 875-125] Doxepin [SINEquan] 25 mg PO HS 03/23/18 03/23/18 History HYDROcodone/APAP 5-325MG [[place] 1 tab PO TID PRN 03/23/18 03/23/18 History 5-325] predniSONE See Taper PO DIRECTED 03/23/18 03/23/18 History Allergies Allergy/AdvReac Type Severity Reaction Status Date / Time No Known Allergies Allergy Verified 03/23/18 11:52 Physical Exam Osteopathic Statement: *. No significant issues noted on an osteopathic structural exam other than those noted in the History and Physical/Consult. Vitals: Vital Signs Temp Pulse Pulse Resp BP Pulse Ox 03/24/18 05:00 98.1 F 82 18 143/84 92 L 03/23/18 21:00 97.8 F 94 16 134/86 92 L 03/23/18 20:23 88 03/23/18 20:06 84 03/23/18 20:05 84 03/23/18 19:48 84 03/23/18 15:58 88 16 03/23/18 15:45 84 03/23/18 12:25 96.2 F L 82 16 154/95 96 Intake and Output 03/23/18 03/23/18 03/24/18 14:59 22:59 06:59 Intake Total 600 Balance 600 Intake: Intake, IV Titration 600 Amount Sodium Chloride 0.9% 1, 600 000 ml @ 75 mls/hr IV . [id number] [facility] Rx#:[id number] Other: Voiding Method Toilet Toilet Toilet # Voids 2 2 Weight 123 kg 123 kg No acute distress, oriented 3. HEENT examination is grossly unremarkable. Mucous membranes are moist. No oral lesions. Neck supple. Full range of motion. No adenopathy thyromegaly or neck vein distention. Cardiovascular examination reveals regular rhythm rate. S1-S2 normal. No S3 or S4. No discernible murmur noted. Lungs reveal diffuse bilateral inspiratory and expiratory wheezes and rhonchi. There is prolongation on forced maneuver. Breath sounds are diminished throughout. Adventitious lung sounds are more prominent on forced maneuver. No crackles. Abdomen soft bowel sounds are heard. No masses or tenderness. PEG tube noted. Extremities are intact. No cyanosis clubbing or edema. Skin is without rash or lesion. Neurologic examination is brief but nonfocal. Results - Laboratory Findings CBC and BMP: 03/23/18 15:34 03/23/18 15:34 Abnormal lab findings: Abnormal Labs 03/23/18 03/23/18 15:34 15:34 RBC 4.19 L Calcium 8.3 L AST 12 L Total Protein 5.9 L Albumin 3.4 L - Diagnostic Findings Chest x-ray: report reviewed, image reviewed CT scan - chest: report reviewed, image reviewed (X-rays, labs, and medications are reviewed.) Assessment and Plan Assessment: Assessment COPD/asthma exacerbation, complicated by purulent tracheobronchitis, without lisbeth pneumonia History of hypertension History of DJD Prior history of pneumonia History of sleep apnea syndrome Status post PEG tube placement History of chronic idiopathic pancreatitis Obesity Plan: Plan dated 03/24/2018 The patient is ready is starting to feel better. He feels less short of breath. Less cough and wheezing. The patient's medications were written yesterday from my office. It included doing nebs, 4 times a day and when necessary along with Pulmicort 1 mg and Perforomist twice a day. In addition, the patient received antibiotic as well as Solu-Medrol 60 mg every 6 hours. His regular medications were done by the hospitalist service. We'll continue to follow. Hopefully discharge by Monday or so. Chest x-ray was negative. Computed tomography scan of the chest did not reveal any acute pathology. His COPD is being treated by purulent tracheobronchitis. CBC is essentially normal. Electrolytes look good. Calcium 8.3. The rest of his labs are appropriate. Medications are reviewed. We will continue to follow. Time with Patient: Greater than 30
[2018-03-24 07:44] LABS: Basophils % (A) 0 %; Eosinophils % (A) 0 %; HCT 41.2 % (39.0-53.0); HGB 13.1 gm/dL (13.0-17.5); Lymphocytes # (A) 0.4 k/uL (1.0-4.8); Lymphocytes % (A) 5 %; MCH 30.4 pg (25.0-35.0); MCHC 31.8 g/dL (31.0-37.0); MCV 95.4 fL (80.0-100.0); Mean Platelet Volume 6.9; Monocytes # (A) 0.2 k/uL (0-1.0); Monocytes % (A) 2 %; Neutrophils % (A) 93 %; Platelet Count 231 k/uL (150-450); RBC 4.31 m/uL (4.30-5.90); RDW 13.3 % (11.5-15.5); WBC 8.6 k/uL (3.8-10.6)
[2018-03-24] MEDS: IPRATROPIUM-ALBUTEROL 3 ML NEB INHALATION PRN ×4 (07:51→20:37)
[2018-03-24] MEDS: BUDESONIDE 1 MG/2 ML NEBU INHALATION SCH ×2 (07:51→20:37)
[2018-03-24] MEDS: FORMOTEROL FUMARATE 20 MCG/2 ML NEBU INHALATION SCH ×2 (07:51→20:37)
[2018-03-24 08:00] LABS: Anion Gap 7 mmol/L; Blood Urea Nitrogen 17 mg/dL (9-20); Calcium 8.6 mg/dL (8.4-10.2); Carbon Dioxide 24 mmol/L (22-30); Chloride 106 mmol/L (98-107); Glucose 148 mg/dL (74-99); Potassium 4.9 mmol/L (3.5-5.1); Sodium 137 mmol/L (137-145)
--- NOTE | 2018-03-24 09:16 | P.GSCN ---
History of Present Illness Consult date: 03/24/18 Reason for Consult: Malfunctioning pej tube Mild attrition Chronic pancreatitis History of present illness: This a 57-year-old male who's been admitted to the hospital for exacerbation of his asthma. Patient has a history of chronic peritonitis. He uses his feeding tube intermittently. Patient noticed that the balloon on his PEG tube was broken. Past Medical History Past Medical History: Asthma, COPD, Hypertension, Osteoarthritis (OA), Pneumonia , Sleep Apnea/CPAP/BIPAP Additional Past Medical History / Comment(s): Bronchitis, ANA does not use his device, chronic pancreatitis followed at [facility], uses pancreatic enzyme supplrments and has peg tube, DDD, chronic back pain, abdominal pain, chronic bilateral lower leg edema, gout bilateral feet in the past, bilateral tinnitis, L hand crush injury with surgeries-index finger amp. History of Any Multi-Drug Resistant Organisms: None Reported Past Surgical History: Cholecystectomy, Orthopedic Surgery Additional Past Surgical History / Comment(s): Feeding tube, pacreatic stent, EGDs/colonoscopies, bronchoscopy, lipoma excision L proximal humerus, left knee arthroscopies, L hand crush injury with surgeries. Past Anesthesia/Blood Transfusion Reactions: No Reported Reaction Smoking Status: Never smoker - Past Family History Father Family Medical History: Congestive Heart Failure (CHF), Diabetes Mellitus Additional Family Medical History / Comment(s): Father at the age of 75 yrs from CHF. Mother Family Medical History: Congestive Heart Failure (CHF), Diabetes Mellitus Additional Family Medical History / Comment(s): Mother at the age of 84 yrs from CHF Medications and Allergies Home Medications Medication Instructions Recorded Confirmed Type Montelukast [Singulair] 10 mg PO HS 01/16/14 03/23/18 History Budesonide-Formot 160-4.5 Mcg 2 puff INHALATION BID 12/30/15 03/23/18 History [Symbicort 160-4.5 Mcg Inhaler] Bumetanide [BUMEX] 2 mg PO DAILY 12/30/15 03/23/18 History Cholecalciferol [Vitamin D3] 1,000 unit PO DAILY 06/15/17 03/23/18 History Ibuprofen [Motrin] 800 mg PO TID PRN 06/15/17 03/23/18 History Lipase/Protease/Amylase [Zenpep Dr 20,000 units PO AC-TID 06/15/17 03/23/18 History 5,000 Units Capsule] Losartan Potassium [Cozaar] 50 mg PO DAILY 06/15/17 03/23/18 History Multivitamins, Thera [Multivitamin 1 tab PO DAILY 06/15/17 03/23/18 History (formulary)] Vitamin A 8,000 unit PO DAILY 06/15/17 03/23/18 History Amoxic-Pot Clav 875-125Mg 1 tab PO Q12HR 03/23/18 03/23/18 History [Augmentin 875-125] Doxepin [SINEquan] 25 mg PO HS 03/23/18 03/23/18 History HYDROcodone/APAP 5-325MG [[place] 1 tab PO TID PRN 03/23/18 03/23/18 History 5-325] predniSONE See Taper PO DIRECTED 03/23/18 03/23/18 History Allergies Allergy/AdvReac Type Severity Reaction Status Date / Time No Known Allergies Allergy Verified 03/23/18 11:52 Surgical - Exam Vital Signs Temp Pulse Resp BP Pulse Ox 96.2 F L 82 16 154/95 96 03/23/18 12:25 03/23/18 12:25 03/23/18 12:25 03/23/18 12:25 03/23/18 12:25 - General well developed, no distress - Eyes PERRL - ENT normal pinna - Neck no masses, no bruits - Cardiovascular Rhythm: regular - Abdomen PEG tube located in the epigastric area Abdomen: soft, non tender Results - Labs 03/24/18 07:07 03/24/18 07:07 Abnormal Lab Results - Last 24 Hours (Table) 03/23/18 03/23/18 03/24/18 Range/Units 15:34 15:34 07:07 RBC 4.19 L (4.30-5.90) m/uL Neutrophils # 8.0 H (1.3-7.7) k/uL Lymphocytes # 0.4 L (1.0-4.8) k/uL Glucose (74-99) mg/dL Calcium 8.3 L (8.4-10.2) mg/dL AST 12 L (17-59) U/L Total Protein 5.9 L (6.3-8.2) g/dL Albumin 3.4 L (3.5-5.0) g/dL 03/24/18 Range/Units 07:07 RBC (4.30-5.90) m/uL Neutrophils # (1.3-7.7) k/uL Lymphocytes # (1.0-4.8) k/uL Glucose 148 H (74-99) mg/dL Calcium (8.4-10.2) mg/dL AST (17-59) U/L Total Protein (6.3-8.2) g/dL Albumin (3.5-5.0) g/dL Diabetes panel 03/23/18 03/24/18 Range/Units 15:34 07:07 Sodium 139 137 (137-145) mmol/L Potassium 4.4 4.9 (3.5-5.1) mmol/L Chloride 105 106 (98-107) mmol/L Carbon Dioxide 29 24 (22-30) mmol/L BUN 20 17 (9-20) mg/dL Creatinine 0.86 0.70 (0.66-1.25) mg/dL Glucose 89 148 H (74-99) mg/dL Calcium 8.3 L 8.6 (8.4-10.2) mg/dL AST 12 L (17-59) U/L ALT 25 (21-72) U/L Alkaline Phosphatase 77 (38-126) U/L Total Protein 5.9 L (6.3-8.2) g/dL Albumin 3.4 L (3.5-5.0) g/dL Calcium panel 03/23/18 03/24/18 Range/Units 15:34 07:07 Calcium 8.3 L 8.6 (8.4-10.2) mg/dL Albumin 3.4 L (3.5-5.0) g/dL Pituitary panel 03/23/18 03/24/18 Range/Units 15:34 07:07 Sodium 139 137 (137-145) mmol/L Potassium 4.4 4.9 (3.5-5.1) mmol/L Chloride 105 106 (98-107) mmol/L Carbon Dioxide 29 24 (22-30) mmol/L BUN 20 17 (9-20) mg/dL Creatinine 0.86 0.70 (0.66-1.25) mg/dL Glucose 89 148 H (74-99) mg/dL Calcium 8.3 L 8.6 (8.4-10.2) mg/dL Adrenal panel 03/23/18 03/24/18 Range/Units 15:34 07:07 Sodium 139 137 (137-145) mmol/L Potassium 4.4 4.9 (3.5-5.1) mmol/L Chloride 105 106 (98-107) mmol/L Carbon Dioxide 29 24 (22-30) mmol/L BUN 20 17 (9-20) mg/dL Creatinine 0.86 0.70 (0.66-1.25) mg/dL Glucose 89 148 H (74-99) mg/dL Calcium 8.3 L 8.6 (8.4-10.2) mg/dL Total Bilirubin 0.6 (0.2-1.3) mg/dL AST 12 L (17-59) U/L ALT 25 (21-72) U/L Alkaline Phosphatase 77 (38-126) U/L Total Protein 5.9 L (6.3-8.2) g/dL Albumin 3.4 L (3.5-5.0) g/dL Assessment and Plan Assessment: The patient has a PEJ tube. This will need to be replaced in the endoscopy suite. The patient is unsure if he wishes to go to [facility] to have this done. If he is here we can perform tube placement on Monday in the endoscopy suite.
[2018-03-24] MEDS: BUMETANIDE 1 MG TAB PO SCH (10:02)
[2018-03-24] MEDS: LIPASE PO SCH ×3 (10:03→17:22)
[2018-03-24] MEDS: LOSARTAN 50 MG TAB PO SCH (10:03)
[2018-03-24] MEDS: PROTEASE PO SCH ×3 (10:03→17:22)
[2018-03-24] MEDS: VITAMIN A 10,000 UNIT CAPSULE PO SCH (10:03)
[2018-03-24] MEDS: CHOLECALCIFEROL 1,000 UNIT TAB PO SCH (10:03)
[2018-03-24] MEDS: AMYLASE PO SCH ×3 (10:03→17:22)
[2018-03-24] MEDS: MULTIVITAMINS, THERA 1 EACH TAB PO SCH (10:04)
[2018-03-24] MEDS: PANTOPRAZOLE 40 MG/10 ML VIAL IVP SCH (10:07)
[2018-03-24] MEDS: HEPARIN SODIUM,PORCINE 5,000 UNIT/ML 1 ML VIAL SQ SCH ×2 (10:07→20:43)
[2018-03-24] MEDS: HYDROcodone/APAP 5-325MG 1 EACH TAB PO PRN ×2 (10:18→17:29)
--- NOTE | 2018-03-24 11:33 | P.PN ---
Subjective This is a pleasant 57 years old male with past medical history of asthma who presents with acute asthma exacerbation and his been treated with steroids and antibiotics. And pulmonary team are following the patient. Patient showing gradual improvement however he still needs hospitalization and IV therapy.. Patient has mild cough with no phlegm patient also complains from PEG tube possible been popped up from his place. Patient states he used to take 2 for his possible chronic pancreatitis whenever the pain becomes unbearable after eating he usually uses a PEG tube and this at usual happens and a rate of 1-2 weeks per month. Surgical team evaluated the patient and they recommended excision the tube for his broken about Be done at the [facility] or on to this hospital on this coming Monday Objective - Vital Signs Vital signs: Vital Signs Temp 98.1 F 03/24/18 05:00 Pulse 89 03/24/18 08:14 Resp 18 03/24/18 05:00 BP 143/84 03/24/18 05:00 Pulse Ox 92 L 03/24/18 05:00 Intake & Output 03/23/18 03/24/18 03/24/18 18:59 06:59 18:59 Intake Total 600 Balance 600 Weight 123 kg Intake: Intake, IV Titration 600 Amount Sodium Chloride 0.9% 1, 600 000 ml @ 75 mls/hr IV . [id number] [facility] Rx#:[id number] Other: Voiding Method Toilet Toilet # Voids 2 - Exam GENERAL: The patient is alert and oriented x3, not in any acute distress. Well developed, well nourished. HEENT: Pupils are round and equally reacting to light. EOMI. No scleral icterus. No conjunctival pallor. Normocephalic, atraumatic. No pharyngeal erythema. No thyromegaly. CARDIOVASCULAR: S1 and S2 present. No murmurs, rubs, or gallops. -PULMONARY: Chest is clear to auscultation, no crackles. Bilateral scattered wheezing with prolonged expiratory phase. -ABDOMEN: Soft, nontender, nondistended, normoactive bowel sounds. No palpable organomegaly. PEG tube is in a Place the surrounding dressing, not in use MUSCULOSKELETAL: No joint swelling or deformity. EXTREMITIES: No cyanosis, clubbing, or pedal edema. NEUROLOGICAL: Gross neurological examination did not reveal any focal deficits. SKIN: No rashes. - Labs CBC & Chem 7: 03/24/18 07:07 03/24/18 07:07 Labs: Abnormal Lab Results - Last 24 Hours (Table) 03/23/18 03/23/18 03/24/18 Range/Units 15:34 15:34 07:07 RBC 4.19 L (4.30-5.90) m/uL Neutrophils # 8.0 H (1.3-7.7) k/uL Lymphocytes # 0.4 L (1.0-4.8) k/uL Glucose (74-99) mg/dL Calcium 8.3 L (8.4-10.2) mg/dL AST 12 L (17-59) U/L Total Protein 5.9 L (6.3-8.2) g/dL Albumin 3.4 L (3.5-5.0) g/dL 03/24/18 Range/Units 07:07 RBC (4.30-5.90) m/uL Neutrophils # (1.3-7.7) k/uL Lymphocytes # (1.0-4.8) k/uL Glucose 148 H (74-99) mg/dL Calcium (8.4-10.2) mg/dL AST (17-59) U/L Total Protein (6.3-8.2) g/dL Albumin (3.5-5.0) g/dL Assessment and Plan Assessment: Acute asthma exacerbation Displaced PEG tube Chronic pancreatitis Essential hypertension History of degenerative joint disease Plan: Is is a pleasant 57 years old male who presents with acute asthma and displaced PEG. Labs and medication were reviewed. Continue with steroids and antibiotics. Continue with IV fluids. Pain management. Surgical consult for displaced PEG is appreciated. Pulmonary team are following the patient and their input is appreciated. Continue with same treatment. Continue with symptomatic treatment. Resume home medication. Monitor lytes and vitals. GI and DVT prophylaxis. Further recommendations based on the clinical course of the patient DVT prophylaxis: Subcutaneous heparin GI prophylaxis: Protonix Prognosis is guarded
[2018-03-24] MEDS: AZITHROMYCIN 500 MG TAB PO SCH (12:45)
[2018-03-24] MEDS: IBUPROFEN 800 MG TAB PO PRN ×2 (13:01→20:42)
[2018-03-24] MEDS: DOXEPIN 25 MG CAP PO SCH (20:43)
[2018-03-24] MEDS: MONTELUKAST 10 MG TAB PO SCH (20:43)
[2018-03-25] MEDS: methylPREDNISolone SOD SUCCI 125 MG/2 ML VIAL IV SCH ×3 (05:28→17:35)
[2018-03-25 07:00] LABS: Anion Gap 7 mmol/L; Blood Urea Nitrogen 29 mg/dL (9-20); Calcium 8.7 mg/dL (8.4-10.2); Carbon Dioxide 23 mmol/L (22-30); Chloride 107 mmol/L (98-107); Glucose 144 mg/dL (74-99); Potassium 4.7 mmol/L (3.5-5.1); Sodium 137 mmol/L (137-145)
[2018-03-25] MEDS: FORMOTEROL FUMARATE 20 MCG/2 ML NEBU INHALATION SCH ×2 (07:52→21:29)
[2018-03-25] MEDS: IPRATROPIUM-ALBUTEROL 3 ML NEB INHALATION PRN ×3 (07:52→21:29)
[2018-03-25] MEDS: BUDESONIDE 1 MG/2 ML NEBU INHALATION SCH ×2 (07:52→21:29)
[2018-03-25] MEDS: LIPASE PO SCH ×3 (07:57→17:37)
[2018-03-25] MEDS: PROTEASE PO SCH ×3 (07:57→17:37)
[2018-03-25] MEDS: AMYLASE PO SCH ×3 (07:57→17:37)
[2018-03-25] MEDS: MULTIVITAMINS, THERA 1 EACH TAB PO SCH (08:21)
[2018-03-25] MEDS: VITAMIN A 10,000 UNIT CAPSULE PO SCH (08:21)
[2018-03-25] MEDS: CHOLECALCIFEROL 1,000 UNIT TAB PO SCH (08:21)
[2018-03-25] MEDS: PANTOPRAZOLE 40 MG/10 ML VIAL IVP SCH (08:21)
[2018-03-25] MEDS: BUMETANIDE 1 MG TAB PO SCH (08:21)
[2018-03-25] MEDS: LOSARTAN 50 MG TAB PO SCH (08:21)
[2018-03-25] MEDS: SODIUM CHLORIDE 0.9% 1,000 ML IV SCH ×2 (08:23→18:28)
[2018-03-25] MEDS: HEPARIN SODIUM,PORCINE 5,000 UNIT/ML 1 ML VIAL SQ SCH ×2 (08:24→20:23)
[2018-03-25] MEDS: HYDROcodone/APAP 5-325MG 1 EACH TAB PO PRN (08:34)
--- NOTE | 2018-03-25 11:32 | P.PN ---
Progress Note - Text Progress Note Date: 03/25/18 The patient resting comfortably in his bed. He denies any abdominal pain. His breathing appear stable. On exam his vital signs are stable. His evidence soft. Patient will undergo endoscopy with placement of PEJ tube tomorrow
--- NOTE | 2018-03-25 11:36 | P.PN ---
Subjective Progress Note Date: 03/25/18 Principal diagnosis: Acute exacerbation of bronchial asthma and tracheobronchitis. Patient was reevaluated today on 03/12/2018, he was seen yesterday by Dr. Velasco on consultation, and he felt that the patient was slightly improving. Remains on multiple bronchodilators, and steroids, continues to improve, but continues to have some intermittent cough and wheezing. No fever no chills no hemoptysis no chest pain. Patient is gradually improving. But not quite ready to be discharged home yesterday. Objective - Vital Signs Vital signs: Vital Signs Temp 97.9 F 03/25/18 05:00 Pulse 102 H 03/25/18 08:55 Resp 18 03/25/18 05:00 BP 136/79 03/25/18 05:00 Pulse Ox 95 03/25/18 05:00 Intake & Output 03/24/18 03/25/18 03/25/18 18:59 06:59 18:59 Intake Total 640 825 Balance 640 825 Intake: Intake, IV Titration 825 Amount Sodium Chloride 0.9% 1, 825 000 ml @ 75 mls/hr IV . [id number] [facility] Rx#:[id number] Oral 640 Other: Voiding Method Toilet Toilet # Voids 3 2 - Exam Physical Exam: Revealed a 57-year-old white male, pleasant, in no distress. Head: Atraumatic, normocephalic. HEENT:[Neck is supple.] [No neck masses.] [No thyromegaly.] [No JVD.] PERRLA, EOMI, no icterus. Chest: [Diminished breath sounds at the bases, some wheezing on forced expiratory maneuver only..] Cardiac Exam: [Normal S1 and S2, no S3 gallop, no murmur.] Abdomen: [Soft, nontender, no megaly, no rebound, no guarding, normal bowel sounds.] PEG tube was noted. Extremities: [No clubbing, no edema, no cyanosis.] Neurological Exam: [No focal neurologic deficit.] Lymphatics: No lymphadenopathy. Psychiatric: Normal mood, affect and mental status examination. - Labs CBC & Chem 7: 03/24/18 07:07 03/25/18 06:30 Labs: Abnormal Lab Results - Last 24 Hours (Table) 10/14/18 Range/Units 06:30 BUN 29 H (9-20) mg/dL Glucose 144 H (74-99) mg/dL Assessment and Plan Assessment: Impression: 1 acute exacerbation of bronchial asthma 2 acute purulent tracheobronchitis 3 history of chronic idiopathic pancreatitis 4 history of PEG tube placement 5 obstructive sleep apnea syndrome. Recommendation: Continue present course of treatment including updrafts, Pulmicort, Perforomist, antibiotics, and steroids. Not quite ready for discharge, possibly in the next 24-48 hours at the most. We'll continue to follow Time with Patient: Less than 30
[2018-03-25] MEDS: AZITHROMYCIN 500 MG TAB PO SCH (12:58)
--- NOTE | 2018-03-25 13:49 | P.PN ---
Subjective This is a pleasant 57 years old male with past medical history of asthma who presents with acute asthma exacerbation and his been treated with steroids and antibiotics. And pulmonary team are following the patient. Patient showing gradual improvement however he still needs hospitalization and IV therapy.. Patient has mild cough with no phlegm patient also complains from PEG tube possible been popped up from his place. Patient states he used to take 2 for his possible chronic pancreatitis whenever the pain becomes unbearable after eating he usually uses a PEG tube and this at usual happens and a rate of 1-2 weeks per month. Surgical team evaluated the patient and they recommended excision the tube for his broken about Be done at the [facility] or on to this hospital on this coming Monday03/25/2018 Patient dyspnea feels better as per patient, he still have some comfort no phlegm. No chest pain. Pulmonary follow-up is appreciated. Patient continue with the same breathing treatment and steroids. Surgical team are planning to evaluate the PEG tomorrow for possible placement. Patient was informed of his left kidney cyst 1.4 cm. Patient denies signs symptoms. We'll check a retroperitoneal ultrasound: Pending Objective - Vital Signs Vital signs: Vital Signs Temp 97.9 F 03/25/18 05:00 Pulse 98 03/25/18 12:45 Resp 18 03/25/18 05:00 BP 136/79 03/25/18 05:00 Pulse Ox 95 03/25/18 05:00 Intake & Output 03/24/18 03/25/18 03/25/18 18:59 06:59 18:59 Intake Total 640 825 Balance 640 825 Intake: Intake, IV Titration 825 Amount Sodium Chloride 0.9% 1, 825 000 ml @ 75 mls/hr IV . [id number] [facility] Rx#:[id number] Oral 640 Other: Voiding Method Toilet Toilet # Voids 3 2 - Exam GENERAL: The patient is alert and oriented x3, not in any acute distress. Well developed, well nourished. HEENT: Pupils are round and equally reacting to light. EOMI. No scleral icterus. No conjunctival pallor. Normocephalic, atraumatic. No pharyngeal erythema. No thyromegaly. CARDIOVASCULAR: S1 and S2 present. No murmurs, rubs, or gallops. -PULMONARY: Chest is clear to auscultation, no crackles. Bilateral scattered wheezing with prolonged expiratory phase. -ABDOMEN: Soft, nontender, nondistended, normoactive bowel sounds. No palpable organomegaly. PEG tube is in a Place the surrounding dressing, not in use MUSCULOSKELETAL: No joint swelling or deformity. EXTREMITIES: No cyanosis, clubbing, or pedal edema. NEUROLOGICAL: Gross neurological examination did not reveal any focal deficits. SKIN: No rashes. - Labs CBC & Chem 7: 03/24/18 07:07 03/25/18 06:30 Labs: Abnormal Lab Results - Last 24 Hours (Table) 03/25/18 Range/Units 06:30 BUN 29 H (9-20) mg/dL Glucose 144 H (74-99) mg/dL Assessment and Plan Assessment: Acute asthma exacerbation Displaced PEG tube Left renal cyst Chronic pancreatitis Essential hypertension History of degenerative joint disease Plan: Is is a pleasant 57 years old male who presents with acute asthma and displaced PEG. Labs and medication were reviewed. Continue with steroids and antibiotics. Continue with IV fluids. Pain management. Surgical consult for displaced PEG is appreciated. Pulmonary team are following the patient and their input is appreciated. Continue with same treatment. Continue with symptomatic treatment check ultrasound.. Resume home medication. Monitor lytes and vitals. GI and DVT prophylaxis. Further recommendations based on the clinical course of the patient DVT prophylaxis: Subcutaneous heparin GI prophylaxis: Protonix Prognosis is guarded
[2018-03-25] MEDS: IBUPROFEN 800 MG TAB PO PRN (17:44)
--- NOTE | 2018-03-25 17:51 | US ---
EXAMINATION TYPE: US kidneys/renal and bladder DATE OF EXAM: 03/25/2018 COMPARISON: 09/25 ct CLINICAL HISTORY: left kidney cyst . EXAM MEASUREMENTS: Right Kidney: 9.7 x 6.2 x 5.1 cm Left Kidney: 12.2 x 6.0 x 5.7 cm Some exam limitations due to portable environment, large habitus and increased overlying bowel gas. Right Kidney: wnl Left Kidney: wnl Bladder: wnl There is no evidence for hydronephrosis at this point in time. No nephrolithiasis is seen. No mica s are identified. The urinary bladder is anechoic. Bilateral ureteral jets are seen. IMPRESSION: No evidence of renal mass or obstruction.
[2018-03-25] MEDS ORDERED: DOXEPIN 25 MG CAP PO SCH (21:00)
[2018-03-25] MEDS ORDERED: MONTELUKAST 10 MG TAB PO SCH (21:00)
[2018-03-26] MEDS: methylPREDNISolone SOD SUCCI 125 MG/2 ML VIAL IV SCH ×3 (00:23→13:13)
[2018-03-26] MEDS: SODIUM CHLORIDE 0.9% 1,000 ML IV SCH (00:24)
[2018-03-26] MEDS: BUDESONIDE 1 MG/2 ML NEBU INHALATION SCH (07:06)
[2018-03-26] MEDS: FORMOTEROL FUMARATE 20 MCG/2 ML NEBU INHALATION SCH (07:06)
[2018-03-26] MEDS: IPRATROPIUM-ALBUTEROL 3 ML NEB INHALATION PRN (07:06)
[2018-03-26 07:54] LABS: Anion Gap 6 mmol/L; Blood Urea Nitrogen 36 mg/dL (9-20); Calcium 8.5 mg/dL (8.4-10.2); Carbon Dioxide 28 mmol/L (22-30); Chloride 104 mmol/L (98-107); Glucose 118 mg/dL (74-99); Potassium 4.8 mmol/L (3.5-5.1); Sodium 138 mmol/L (137-145)
[2018-03-26] MEDS: PROTEASE PO SCH ×2 (08:14→13:11)
[2018-03-26] MEDS: AMYLASE PO SCH ×2 (08:14→13:11)
[2018-03-26] MEDS: LIPASE PO SCH ×2 (08:14→13:11)
[2018-03-26] MEDS: HEPARIN SODIUM,PORCINE 5,000 UNIT/ML 1 ML VIAL SQ SCH (08:18)
[2018-03-26] MEDS ORDERED: PANTOPRAZOLE 40 MG/10 ML VIAL IVP SCH (09:00)
[2018-03-26] MEDS ORDERED: LOSARTAN 50 MG TAB PO SCH (09:00)
[2018-03-26] MEDS ORDERED: MULTIVITAMINS, THERA 1 EACH TAB PO SCH (09:00)
[2018-03-26] MEDS ORDERED: CHOLECALCIFEROL 1,000 UNIT TAB PO SCH (09:00)
[2018-03-26] MEDS ORDERED: VITAMIN A 10,000 UNIT CAPSULE PO SCH (09:00)
[2018-03-26] MEDS ORDERED: BUMETANIDE 1 MG TAB PO SCH (09:00)
--- NOTE | 2018-03-26 11:33 | CDI ---
Last Revision, May 2017 Documentation Clarification Form Date: 03/26/18 From: Brenda Espinoza RN, CCDS Admit Date: 03/23/2018 11:23:00 AM Patient Name: Reza Chanel Visit Number: [id number] Discharge Date: ATTENTION: The Clinical Documentation Specialists (CDI) and [facility] Coding Staff appreciate your assistance in clarifying documentation. Please respond to the clarification below the line at the bottom and electronically sign. The CDI & [facility] Coding staff will review the response and follow-up if needed. Please note: Queries are made part of the Legal Health Record. If you have any questions, please contact the author of this message via ITS. Ran Garcia, DO Asthma exacerbation, complicated by purulent tracheobronchitis is documented in your consult on 03/24/18. Patient history/risk factors: COPD, Asthma, Obesity sleep apnea syndrome, Idiopathic pancreatitis. Clinical Indicators: Present with complaints of cough, wheezing, shortness of breath and phlegm production. No fevers or chills, Radiology: Negative CT chest did not reveal any acute pathology. Vital Signs: 154/96 82 16 96.2 96 % RA Other Clinical Indicators: Lungs reveal diffuse bilateral inspiratory and expiratory wheezes and rhonchi. Breath sounds are diminished throughout. Treatment: Pulmicort Inhalation Perforomist inhalation Zithromax PO Rocephin IV Solu-Medrol IV (titrate) Monitor O2 Sat's IV fluids In your professional opinion, can you please further specify the Asthma Exacerbation, if known? Severity: Mild intermittent Mild persistent Moderate persistent Severe persistent Other, please specify Unable to determine Form or Type: Cough variant Childhood Exercise induced bronchospasm Extrinsic allergic Idiosyncratic Intrinsic nonallergic Late-onset Mixed Other, please specify____ Unable to determine Please continue to document in your progress notes and discharge summary in order to capture severity of illness and risk of mortality. Include clinical findings that support your diagnosis. MTDD
[2018-03-26] MEDS ORDERED: AZITHROMYCIN 500 MG TAB PO SCH (12:00)
[2018-03-26] MEDS ORDERED: fentaNYL (PF) 50 MCG/ML 2 ML AMP ONE (13:38)
[2018-03-26] MEDS ORDERED: LIDOCAINE 1% INJ 10MG/ML (20 ML MDV) ONE (13:38)
[2018-03-26] MEDS ORDERED: PROPOFOL 10 MG/ML 20 ML VIAL IV ONE (13:38)
--- NOTE | 2018-03-26 13:52 | P.PN ---
Subjective Progress Note Date: 03/26/18 Principal diagnosis: COPD exacerbation Progress note dated 03/26/2018 57-year-old male who I admitted from the office on Monday. The patient has a history of COPD/asthma. Over the Week, He Was Much Improved. I Thought He Might Go Home on Monday. Apparently He Is Having Difficulty with His PEG Tube. That Was Placed for Nutrition Given the Fact That He Has a History of Chronic Idiopathic Pancreatitis. In Addition to His Asthma and COPD, He Has a History of Hypertension DJD Pneumonia and Sleep Apnea Syndrome. The Patient May Be Discharged Home Soon. His breathing is much improved. He denies any cough or significant phlegm production. He does have some mild chest tightness. No fever or chills. From the pulmonary standpoint, he is ready for discharge. Apparently one of the surgeons is going to fix his PEG tube today. The patient will follow with me in the office post discharge. Objective - Vital Signs Vital signs: Vital Signs Temp 97.9 F 03/26/18 05:00 Pulse 92 03/26/18 07:33 Resp 18 03/26/18 05:00 BP 148/83 03/26/18 05:00 Pulse Ox 93 L 03/26/18 05:00 Intake & Output 03/25/18 03/26/18 03/26/18 18:59 06:59 18:59 Intake Total 1070 1020 Balance 1070 1020 Intake: Intake, IV Titration 300 Amount Sodium Chloride 0.9% 1, 300 000 ml @ 75 mls/hr IV . [id number] [facility] Rx#:[id number] Oral 1070 720 Other: Voiding Method Toilet Toilet # Voids 3 1 - Exam No acute distress, oriented 3. Not requiring any supplemental oxygen. HEENT examination is grossly unremarkable. Mucous membranes are moist. No oral lesions. Neck supple. Full range of motion. No adenopathy thyromegaly or neck vein distention. Cardiovascular examination reveals regular rhythm rate. S1-S2 normal. No S3 or S4. No discernible murmur noted. Lungs reveal mostly clear breath sounds. His a few scattered mild expiratory wheezes and a few scattered mild rhonchi. No crackles. Breath sounds equal bilaterally. Slight prolongation on forced maneuver noted. Abdomen soft bowel sounds are heard. No masses or tenderness. PEG tube noted. Extremities are intact. No cyanosis clubbing or edema. Skin is without rash or lesion. Neurologic examination is brief but nonfocal. - Labs CBC & Chem 7: 03/24/18 07:07 03/26/18 07:00 Labs: Abnormal Lab Results - Last 24 Hours (Table) 03/26/18 Range/Units 07:00 BUN 36 H (9-20) mg/dL Glucose 118 H (74-99) mg/dL Assessment and Plan Assessment: Assessment COPD/asthma exacerbation, complicated by purulent tracheobronchitis, without lisbeth pneumonia History of hypertension History of DJD Prior history of pneumonia History of sleep apnea syndrome Status post PEG tube placement History of chronic idiopathic pancreatitis Obesity Plan: Plan dated 03/24/2018 The patient is ready is starting to feel better. He feels less short of breath. Less cough and wheezing. The patient's medications were written yesterday from my office. It included doing nebs, 4 times a day and when necessary along with Pulmicort 1 mg and Perforomist twice a day. In addition, the patient received antibiotic as well as Solu-Medrol 60 mg every 6 hours. His regular medications were done by the hospitalist service. We'll continue to follow. Hopefully discharge by Monday or so. Chest x-ray was negative. Computed tomography scan of the chest did not reveal any acute pathology. His COPD is being treated by purulent tracheobronchitis. CBC is essentially normal. Electrolytes look good. Calcium 8.3. The rest of his labs are appropriate. Medications are reviewed. We will continue to follow. Plan dated 03/26/2018 The patient is doing relatively well from the pulmonary standpoint. He remains on his usual breathing medications including updrafts steroids and antibiotics. The patient may have his PEG tube replaced today. Waiting on surgery. Should be discharged, he'll follow-up with me next week in the office. The patient does have steroids and antibiotics at home that he can take. Electrolyte profile looks pretty reasonable except for a BUN of 36 and a creatinine of 0.90 suggesting prerenal azotemia. We will continue to follow. Prognosis is guarded. Time with Patient: Less than 30
[2018-03-26] MEDS ORDERED: LACTATED RINGERS 1,000 ML IV ONE (13:55)
[2018-03-26 14:31] VITALS: BP 150/91; PULSE 80; RESP 22; TEMP 98.2
--- NOTE | 2018-03-26 19:38 | P.DS ---
Providers Date of admission: 03/23/18 11:23 Attending physician: Efren Rodrigues Consults: 03/23/18 13:16 Consult Physician Routine Consulting Provider: Darron Celis Consult Reason/Comments: Asthma exacerbation Do you want consulting provider notified?: Already Contacted Placement Type Exists?: Yes 03/23/18 14:22 Consult Physician Routine Consulting Provider: Ren Berger Consult Reason/Comments: PEG tube balloon burst Do you want consulting provider notified?: Yes Primary care physician: [facility] Course: This is a pleasant 57 years old male with past medical history of asthma who presents with acute asthma exacerbation and his been treated with steroids and antibiotics. And pulmonary team are following the patient. Patient showing gradual but consistent improvement . Patient is breathing and other symptoms are significantly improved. Patient has been cleared by pulmonary for discharge patient also complains from PEG tube possible been popped up from his place. Patient states he used to take 2 for his possible chronic pancreatitis whenever the pain becomes unbearable after eating he usually uses a PEG tube and this at usual happens and a rate of 1-2 weeks per month. Surgical team evaluated the patient and they did replacement of his PEG tube. Patient was cleared by surgical team also for discharge Problems and management plan was discussed with the patient and he verbalized understanding and acceptance line Patient is found stable and can be discharged however he needs follow-up as an outpatient. Patient found to have left renal cyst of 1.4 cm. Retroperitoneal ultrasound showed normal right and left kidneys with no mass N.B pt was instructed by pulmonary team to use his home taper dose of steroid and augmentin antibiotic prescribed to him by prior to admission to the hospital this time , pt confirmed to me he had these meds at home and that he will use them . pt states he will call and make appointments as directed with pulmonary , Dr. allen and urologist after he talks to his pcp.I did call and speak with Dr. Allen and discussed the case with him including all the above, with a recommendation for urological referral for his kidney cyst and he kindly took note of this. Appointment is made for the patient with his PCP Dr. Allen on 03/29/2018, and he agrees to the appointments and this time and states that he will follow-up. physical exam Gen.: Patient alert awake and oriented X 3, NOT IN DISTRESS CVS: s1-s2, RRR, no murmur CHEST:bilateral CTA, no wheezing or crepitation Abdomen: Soft, no tenderness, no distention, positive bowel sounds Extremities: No leg edema or induration Time spent more than 35 minutes g Plan - Discharge Summary Discharge Rx Participant: No New Discharge Prescriptions: New Acetaminophen Tab [Tylenol] 500 mg PO Q6HR PRN tab PRN Reason: Fever and/ or Mild Pain Continue Montelukast [Singulair] 10 mg PO HS Bumetanide [BUMEX] 2 mg PO DAILY Budesonide-Formot 160-4.5 Mcg [Symbicort 160-4.5 Mcg Inhaler] 2 puff INHALATION BID Vitamin A 8,000 unit PO DAILY Multivitamins, Thera [Multivitamin (formulary)] 1 tab PO DAILY Losartan Potassium [Cozaar] 50 mg PO DAILY Cholecalciferol [Vitamin D3] 1,000 unit PO DAILY Lipase/Protease/Amylase [Zenpep Dr 5,000 Units Capsule] 20,000 units PO AC- TID HYDROcodone/APAP 5-325MG [[place] 5-325] 1 tab PO TID PRN PRN Reason: Pain Amoxic-Pot Clav 875-125Mg [Augmentin 875-125] 1 tab PO Q12HR Doxepin [SINEquan] 25 mg PO HS predniSONE See Taper PO DIRECTED Discontinued Ibuprofen [Motrin] 800 mg PO TID PRN PRN Reason: Pain Discharge Medication List Montelukast [Singulair] 10 mg PO HS 01/16/14 [History] Budesonide-Formot 160-4.5 Mcg [Symbicort 160-4.5 Mcg Inhaler] 2 puff INHALATION BID 12/30/15 [History] Bumetanide [BUMEX] 2 mg PO DAILY 12/30/15 [History] Cholecalciferol [Vitamin D3] 1,000 unit PO DAILY 06/15/17 [History] Lipase/Protease/Amylase [Zenpep Dr 5,000 Units Capsule] 20,000 units PO AC-TID 06/15/17 [History] Losartan Potassium [Cozaar] 50 mg PO DAILY 06/15/17 [History] Multivitamins, Thera [Multivitamin (formulary)] 1 tab PO DAILY 06/15/17 [History ] Vitamin A 8,000 unit PO DAILY 06/15/17 [History] Amoxic-Pot Clav 875-125Mg [Augmentin 875-125] 1 tab PO Q12HR 03/23/18 [History] Doxepin [SINEquan] 25 mg PO HS 03/23/18 [History] HYDROcodone/APAP 5-325MG [[place] 5-325] 1 tab PO TID PRN 03/23/18 [History] predniSONE See Taper PO DIRECTED 03/23/18 [History] Acetaminophen Tab [Tylenol] 500 mg PO Q6HR PRN tab 03/26/18 [Rx] Follow up Appointment(s)/Referral(s): Jv Espinoza MD [STAFF PHYSICIAN] - 10 Days (Dr. Espinoza's office will call patient with an appointment date and time. ) Ho Allen MD [STAFF PHYSICIAN] - 03/29/18 12:00 pm Ran Velasco DO [Doctor of Osteopathic Medicine] - 04/10/18 3:45 pm Patient Instructions/Handouts: Asthma (DC), Heart Healthy Diet (DC), Kidney Cyst (GEN) Activity/Diet/Wound Care/Special Instructions: Cardiac diet Activity as tolerated Please use your Taper steroids and Augmentin as prescribed and provided by Dr. Velasco for you upon discharge Discharge Disposition: HOME SELF-CARE
[2018-03-26] MEDS ORDERED: SYMBICORT 160-4.5 MCG INHALER INHALATION SCH (20:00)
[2018-03-27] MEDS ORDERED: predniSONE 20 MG TAB PO SCH (09:00)
--- NOTE | 2018-03-27 09:12 | CDI ---
Last Revision, May 2017 Documentation Clarification Form Date: 03/26/2018 11:10:00 AM From: Brenda Espinoza RN, CCDS Admit Date: 03/23/2018 11:23:00 AM Patient Name: Reza Chanel Visit Number: [id number] Discharge Date: ATTENTION: The Clinical Documentation Specialists (CDI) and [facility] Coding Staff appreciate your assistance in clarifying documentation. Please respond to the clarification below the line at the bottom and electronically sign. The CDI & [facility] Coding staff will review the response and follow-up if needed. Please note: Queries are made part of the Legal Health Record. If you have any questions, please contact the author of this message via ITS. Ran Turcios, DO Asthma exacerbation, complicated by purulent tracheobronchitis is documented in your consult on 03/24/18. Patient history/risk factors: COPD, Asthma, Obesity sleep apnea syndrome, Idiopathic pancreatitis. Clinical Indicators: Present with complaints of cough, wheezing, shortness of breath and phlegm production. No fevers or chills, Radiology: Negative CT chest did not reveal any acute pathology. Vital Signs: 154/96 82 16 96.2 96 % RA Other Clinical Indicators: Lungs reveal diffuse bilateral inspiratory and expiratory wheezes and rhonchi. Breath sounds are diminished throughout. Treatment: Pulmicort Inhalation Perforomist inhalation Zithromax PO Rocephin IV Solu-Medrol IV (titrate) Monitor O2 Sat's IV fluids In your professional opinion, can you please further specify the Asthma Exacerbation, if known? Severity: Mild intermittent Mild persistent Moderate persistent Severe persistent Other, please specify Unable to determine Form or Type: Cough variant Childhood Exercise induced bronchospasm Extrinsic allergic Idiosyncratic Intrinsic nonallergic Late-onset Mixed Other, please specify____ Unable to determine Please continue to document in your progress notes order to capture severity of illness and risk of mortality. Include clinical findings that support your diagnosis. ____severe persistent asthma MTDD
--- NOTE | 2018-03-28 12:31 | CDI ---
Last Revision, May 2017 Documentation Clarification Form Date: 03/26/2018 11:10:00 AM From: Brenda Espinoza RN, CCDS Admit Date: 03/23/2018 11:23:00 AM Patient Name: Reza Chanel Visit Number: [id number] Discharge Date: ATTENTION: The Clinical Documentation Specialists (CDI) and [facility] Coding Staff appreciate your assistance in clarifying documentation. Please respond to the clarification below the line at the bottom and electronically sign. The CDI & [facility] Coding staff will review the response and follow-up if needed. Please note: Queries are made part of the Legal Health Record. If you have any questions, please contact the author of this message via ITS. Ran Turcios , DO Asthma exacerbation, complicated by purulent tracheobronchitis is documented in your consult on 03/24/18. Patient history/risk factors: COPD, Asthma, Obesity sleep apnea syndrome, Idiopathic pancreatitis. Clinical Indicators: Present with complaints of cough, wheezing, shortness of breath and phlegm production. No fevers or chills, Radiology: Negative CT chest did not reveal any acute pathology. Vital Signs: 154/96 82 16 96.2 96 % RA Other Clinical Indicators: Lungs reveal diffuse bilateral inspiratory and expiratory wheezes and rhonchi. Breath sounds are diminished throughout. Treatment: Pulmicort Inhalation Perforomist inhalation Zithromax PO Rocephin IV Solu-Medrol IV (titrate) Monitor O2 Sat's IV fluids In your professional opinion, can you please further specify the Asthma Exacerbation, if known? Severity Mild intermittent Mild persistent Moderate persistent Severe persistent Other, please specify Unable to determine Form or Type: Cough variant Childhood Exercise induced bronchospasm Extrinsic allergic Idiosyncratic Intrinsic nonallergic Late-onset Mixed Other, please specify____ Unable to determine Please continue to document in your progress notes in order to capture severity of illness and risk of mortality. Include clinical findings that support your diagnosis. Acute exacerbation of chronic bronchial asthma, unspecified MTDD
--- NOTE | 2018-04-13 10:07 | P.OP ---
Date of Procedure: 03/26/18 Preoperative Diagnosis: Malfunctioning PEj tube Malnutrition Chronic pancreatitis Postoperative Diagnosis: Same Procedure(s) Performed: EGD with pEG J-tube insertion Anesthesia: MAC Surgeon: Ren Berger Pathology: none sent Condition: stable Disposition: PACU Description of Procedure: The patient's placed on the endoscopy table in the lateral position. He received IV sedation. The gastroscope placed oropharynx and passed into the esophagus into the stomach. The patient's previously placed PEJ tube was removed. The balloon was broken on the the pEJ tube. The new PEJ tube was placed through the existing tract into the stomach. The balloon was inflated. The end of the PEJ tube was snared and placed into the duodenum. Patient top procedure well the scope was withdrawn. He was sent to recovery room in stable condition.
== END 2018-03-26 16:40 | disposition home or self-care (01) | DRG 202 ==
LOC: 5MS5E 11:23 → 3NMEDONC 03-25 12:26
PROVIDERS: ADMIT Hospitalist; ATTEND Hospitalist
PROC: 0DH63UZ Insertion of Feeding Device into Stomach, Percutaneous Approach (ICD-10-PCS; principal; 2018-03-26 08:10)
DX: J45.901 Unspecified asthma with (acute) exacerbation (principal); J44.1 Chronic obstructive pulmonary disease with (acute) exacerbation; K86.1 Other chronic pancreatitis; K94.29 Other complications of gastrostomy; E66.9 Obesity, unspecified; G47.33 Obstructive sleep apnea (adult) (pediatric); I10 Essential (primary) hypertension; M19.90 Unspecified osteoarthritis, unspecified site; N28.1 Cyst of kidney, acquired; G89.29 Other chronic pain; M10.9 Gout, unspecified; M54.9 Dorsalgia, unspecified; H93.13 Tinnitus, bilateral; J20.9 Acute bronchitis, unspecified; Z90.49 Acquired absence of other specified parts of digestive tract; Z87.01 Personal history of pneumonia (recurrent); Z79.51 Long term (current) use of inhaled steroids; Z79.899 Other long term (current) drug therapy; Z68.38 Body mass index [BMI] 38.0-38.9, adult; Z82.49 Family history of ischemic heart disease and other diseases of the circulatory system; Z83.3 Family history of diabetes mellitus; Y83.3 Surgical operation with formation of external stoma as the cause of abnormal reaction of the patient, or of later complication, without mention of misadventure at the time of the procedure
CPT/HCPCS: 44373; 71250; 74176; 76770; 80048; 80053; 85025; 94640

== ENCOUNTER 2018-03-29 18:40 | Inpatient (IN) | payer BC ==
[2018-03-29] MEDS ORDERED: MORPHINE SULFATE 4 MG/ML SYRINGE IV STA (19:10)
[2018-03-29] MEDS ORDERED: SODIUM CHLORIDE 0.9% 1,000 ML IV STA (19:10)
[2018-03-29] MEDS ORDERED: ONDANSETRON 4 MG/2 ML VIAL IVP STA (19:10)
--- NOTE | 2018-03-29 19:15 | ED ---
Abdominal Pain HPI - General Chief Complaint: Abdominal Pain Stated Complaint: abd pain Time Seen by Provider: 03/29/18 18:50 Source: patient Mode of arrival: ambulatory Limitations: no limitations - History of Present Illness Initial Comments: 57 old male patient with past medical history significant for pancreatitis and G -J tube placement presents to the emergency department today for evaluation of midepigastric abdominal pain with radiation to the back. Patient states he has associated nausea but has not had any vomiting. Patient states that he hasn't been able to eat or drink over the last couple days because the pain worsens with eating. Patient states that he was admitted to the hospital over the weekend for asthma exacerbation and did undergo replacement of the G-J tube. Patient states that they did do an upper endoscopy scope when they inserted a new tube. Patient states he has been having increasing upper abdominal pain since. He describes the pain as a sharp, cramping, stabbing pain. He denies any shortness of breath with this. Denies any constipation, diarrhea, or difficulty with urination. Denies any fevers, but states he has had chills. Patient denies any recent rash, chest pain, numbness, tingling, dizziness, weakness, hematuria, dysuria, urinary urgency, urinary frequency, headache, visual changes, or any other complaints. - Related Data Home Medications Medication Instructions Recorded Confirmed Montelukast [Singulair] 10 mg PO HS 01/16/14 03/29/18 Budesonide-Formot 160-4.5 Mcg 2 puff INHALATION BID 12/30/15 03/29/18 [Symbicort 160-4.5 Mcg Inhaler] Bumetanide [BUMEX] 2 mg PO DAILY 12/30/15 03/29/18 Cholecalciferol [Vitamin D3] 1,000 unit PO DAILY 06/15/17 03/29/18 Lipase/Protease/Amylase [Zenpep Dr 20,000 units PO AC-TID 06/15/17 03/29/18 5,000 Units Capsule] Losartan Potassium [Cozaar] 50 mg PO DAILY 06/15/17 03/29/18 Multivitamins, Thera [Multivitamin 1 tab PO DAILY 06/15/17 03/29/18 (formulary)] Vitamin A 8,000 unit PO DAILY 06/15/17 03/29/18 Amoxic-Pot Clav 875-125Mg 1 tab PO Q12HR 03/23/18 03/29/18 [Augmentin 875-125] Doxepin [SINEquan] 50 mg PO HS 03/23/18 03/29/18 HYDROcodone/APAP 5-325MG [[place] 1 tab PO TID PRN 03/23/18 03/29/18 5-325] predniSONE See Taper PO DIRECTED 03/23/18 03/29/18 Albuterol Inhaler [Ventolin Hfa 1 - 2 puff INHALATION RT-QID PRN 03/29/18 Inhaler] Diclofenac 3% Topical 1 appful TOPICAL BID 03/29/18 03/29/18 Ketoconazole 2% Shampoo [Nizoral] 1 applic TOPICAL Q4D 03/29/18 03/29/18 Meloxicam [Mobic] 15 mg PO DAILY 03/29/18 03/29/18 Metoclopramide HCl [Reglan] 5 - 10 mg PO QID 03/29/18 03/29/18 Montelukast Sodium [Singulair] 10 mg PO HS 03/29/18 03/29/18 Previous Rx's Medication Instructions Recorded Acetaminophen Tab [Tylenol] 500 mg PO Q6HR PRN tab 03/26/18 Allergies Allergy/AdvReac Type Severity Reaction Status Date / Time No Known Allergies Allergy Verified 03/29/18 20:25 Review of Systems ROS Statement: Those systems with pertinent positive or pertinent negative responses have been documented in the HPI. ROS Other: All systems not noted in ROS Statement are negative. Past Medical History Past Medical History: Asthma, COPD, Hypertension, Osteoarthritis (OA), Pneumonia , Sleep Apnea/CPAP/BIPAP Additional Past Medical History / Comment(s): Bronchitis, ANA does not use his device, chronic pancreatitis followed at [facility], uses pancreatic enzyme supplrments and has peg tube, DDD, chronic back pain, abdominal pain, chronic bilateral lower leg edema, gout bilateral feet in the past, bilateral tinnitis, L hand crush injury with surgeries-index finger amp. History of Any Multi-Drug Resistant Organisms: None Reported Past Surgical History: Cholecystectomy, Orthopedic Surgery Additional Past Surgical History / Comment(s): Feeding tube, pacreatic stent, EGDs/colonoscopies, bronchoscopy, lipoma excision L proximal humerus, left knee arthroscopies, L hand crush injury with surgeries. Past Anesthesia/Blood Transfusion Reactions: No Reported Reaction Past Psychological History: No Psychological Hx Reported Smoking Status: Never smoker Past Alcohol Use History: None Reported Past Drug Use History: None Reported - Past Family History Father Family Medical History: Congestive Heart Failure (CHF), Diabetes Mellitus Additional Family Medical History / Comment(s): Father at the age of 75 yrs from CHF. Mother Family Medical History: Congestive Heart Failure (CHF), Diabetes Mellitus Additional Family Medical History / Comment(s): Mother at the age of 84 yrs from CHF General Exam Limitations: no limitations General appearance: alert, in no apparent distress, other (This is a well- developed, well-nourished adult male patient in no acute distress. Vital signs upon presentation are temperature 98.3F, pulse 94, respirations 20, blood pressure 124/95, pulse ox 99% on room air.) Eye exam: Present: normal appearance, PERRL, EOMI. Absent: scleral icterus, conjunctival injection, periorbital swelling ENT exam: Present: normal exam, normal oropharynx, mucous membranes moist Respiratory exam: Present: normal lung sounds bilaterally. Absent: respiratory distress, wheezes, rales, rhonchi, stridor Cardiovascular Exam: Present: regular rate, normal rhythm, normal heart sounds. Absent: systolic murmur, diastolic murmur, rubs, gallop, clicks GI/Abdominal exam: Present: soft, tenderness (Midepigastric tenderness), normal bowel sounds. Absent: distended, guarding, rebound, rigid Neurological exam: Present: alert, oriented X3, CN II-XII intact Psychiatric exam: Present: normal affect, normal mood Skin exam: Present: warm, dry, intact, normal color. Absent: rash Course Vital Signs 03/29/18 03/29/18 18:44 20:59 Temperature 98.3 F 98.9 F Pulse Rate 94 85 Respiratory 20 20 Rate Blood Pressure 124/95 140/91 O2 Sat by Pulse 99 99 Oximetry Medical Decision Making - Medical Decision Making 57 year-old male patient presents emergency department today for evaluation of midepigastric abdominal pain that radiates through to the back. Patient did undergo replacement of his G-J tube on Monday. Physical examination does reveal midepigastric tenderness. Labs reviewed and did reveal an elevated lipase at 1295. White blood cell count was within normal range. CT abdomen and pelvis was obtained and showed no acute abnormalities. I did discuss findings and results with the patient and his . We will admit patient for further evaluation and monitoring. He will be nothing by mouth with IV fluid resuscitation and pain management ordered. - Lab Data Result diagrams: 03/29/18 19:20 03/29/18 19:20 Lab Results 03/29/18 03/29/18 03/29/18 Range/Units 19:20 19:20 19:20 WBC 9.8 (3.8-10.6) k/uL RBC 4.74 (4.30-5.90) m/uL Hgb 15.0 (13.0-17.5) gm/dL Hct 45.4 (39.0-53.0) % MCV 95.9 (80.0-100.0) fL MCH 31.6 (25.0-35.0) pg MCHC 33.0 (31.0-37.0) g/dL RDW 13.5 (11.5-15.5) % Plt Count 244 (150-450) k/uL Neutrophils % 71 % Lymphocytes % 20 % Monocytes % 6 % Eosinophils % 1 % Basophils % 0 % Neutrophils # 6.9 (1.3-7.7) k/uL Lymphocytes # 2.0 (1.0-4.8) k/uL Monocytes # 0.5 (0-1.0) k/uL Eosinophils # 0.1 (0-0.7) k/uL Basophils # 0.0 (0-0.2) k/uL Sodium 136 L (137-145) mmol/L Potassium 4.8 (3.5-5.1) mmol/L Chloride 105 (98-107) mmol/L Carbon Dioxide 25 (22-30) mmol/L Anion Gap 6 mmol/L BUN 30 H (9-20) mg/dL Creatinine 0.87 (0.66-1.25) mg/dL Est GFR (CKD-EPI)AfAm >90 (>60 ml/min/1.73 sqM) Est GFR (CKD-EPI)NonAf >90 (>60 ml/min/1.73 sqM) Glucose 96 (74-99) mg/dL Calcium 8.7 (8.4-10.2) mg/dL Total Bilirubin 0.9 (0.2-1.3) mg/dL AST 19 (17-59) U/L ALT 23 (21-72) U/L Alkaline Phosphatase 82 (38-126) U/L Total Creatine Kinase <20 L (55-170) U/L CK-MB (CK-2) 0.5 (0.0-2.4) ng/mL CK-MB (CK-2) Rel Index Troponin I <0.012 (0.000-0.034) ng/mL Total Protein 6.5 (6.3-8.2) g/dL Albumin 3.7 (3.5-5.0) g/dL Amylase 120 H (30-110) U/L Lipase 1295 H (23-300) U/L Urine Color Urine Appearance (Clear) Urine pH (5.0-8.0) Urine Protein (Negative) Urine Glucose (UA) (Negative) Urine Ketones (Negative) Urine Blood (Negative) Urine Nitrite (Negative) Urine Bilirubin (Negative) Urine Urobilinogen (<2.0) mg/dL Ur Leukocyte Esterase (Negative) 03/29/18 Range/Units 20:40 WBC (3.8-10.6) k/uL RBC (4.30-5.90) m/uL Hgb (13.0-17.5) gm/dL Hct (39.0-53.0) % MCV (80.0-100.0) fL MCH (25.0-35.0) pg MCHC (31.0-37.0) g/dL RDW (11.5-15.5) % Plt Count (150-450) k/uL Neutrophils % % Lymphocytes % % Monocytes % % Eosinophils % % Basophils % % Neutrophils # (1.3-7.7) k/uL Lymphocytes # (1.0-4.8) k/uL Monocytes # (0-1.0) k/uL Eosinophils # (0-0.7) k/uL Basophils # (0-0.2) k/uL Sodium (137-145) mmol/L Potassium (3.5-5.1) mmol/L Chloride (98-107) mmol/L Carbon Dioxide (22-30) mmol/L Anion Gap mmol/L BUN (9-20) mg/dL Creatinine (0.66-1.25) mg/dL Est GFR (CKD-EPI)AfAm (>60 ml/min/1.73 sqM) Est GFR (CKD-EPI)NonAf (>60 ml/min/1.73 sqM) Glucose (74-99) mg/dL Calcium (8.4-10.2) mg/dL Total Bilirubin (0.2-1.3) mg/dL AST (17-59) U/L ALT (21-72) U/L Alkaline Phosphatase (38-126) U/L Total Creatine Kinase (55-170) U/L CK-MB (CK-2) (0.0-2.4) ng/mL CK-MB (CK-2) Rel Index Troponin I (0.000-0.034) ng/mL Total Protein (6.3-8.2) g/dL Albumin (3.5-5.0) g/dL Amylase (30-110) U/L Lipase (23-300) U/L Urine Color Yellow Urine Appearance Clear (Clear) Urine pH 6.0 (5.0-8.0) Urine Protein Trace H (Negative) Urine Glucose (UA) Negative (Negative) Urine Ketones Negative (Negative) Urine Blood Negative (Negative) Urine Nitrite Negative (Negative) Urine Bilirubin Negative (Negative) Urine Urobilinogen <2.0 (<2.0) mg/dL Ur Leukocyte Esterase Negative (Negative) - Radiology Data Radiology results: report reviewed, image reviewed CT abdomen and pelvis with contrast was obtained. Report was reviewed in its entirety. Impression by Dr. Arnold shows gastrostomy tube appears in good position. The balloon is inflated and good position in the gastric anterior fundus. The catheter tip is in the distal duodenum and has been pulled back from the proximal jejunum compared to old exam. Disposition Clinical Impression: Acute pancreatitis Disposition: ADMITTED IP TO THIS [facility] Condition: Serious Decision to Admit Reason: Admit from EC Decision Date: 03/29/18 Decision Time: 20:22
[2018-03-29 19:36] LABS: Basophils % (A) 0 %; Eosinophils # (A) 0.1 k/uL (0-0.7); Eosinophils % (A) 1 %; HCT 45.4 % (39.0-53.0); Lymphocytes % (A) 20 %; MCH 31.6 pg (25.0-35.0); MCV 95.9 fL (80.0-100.0); Mean Platelet Volume 6.8; Monocytes # (A) 0.5 k/uL (0-1.0); Monocytes % (A) 6 %; Neutrophils # (A) 6.9 k/uL (1.3-7.7); Neutrophils % (A) 71 %; Platelet Count 244 k/uL (150-450); RBC 4.74 m/uL (4.30-5.90); RDW 13.5 % (11.5-15.5); WBC 9.8 k/uL (3.8-10.6)
[2018-03-29 19:56] LABS: ALT 23 U/L (21-72); AST 19 U/L (17-59); Albumin 3.7 g/dL (3.5-5.0); Alkaline Phosphatase 82 U/L (38-126); Amylase 120 U/L (30-110); Anion Gap 6 mmol/L; Blood Urea Nitrogen 30 mg/dL (9-20); Calcium 8.7 mg/dL (8.4-10.2); Carbon Dioxide 25 mmol/L (22-30); Chloride 105 mmol/L (98-107); Glucose 96 mg/dL (74-99); Lipase 1295 U/L (23-300); Potassium 4.8 mmol/L (3.5-5.1); Sodium 136 mmol/L (137-145); Total Bilirubin 0.9 mg/dL (0.2-1.3); Total Protein 6.5 g/dL (6.3-8.2)
--- NOTE | 2018-03-29 19:58 | CT ---
EXAMINATION TYPE: CT abdomen pelvis w con DATE OF EXAM: 03/29/2018 COMPARISON: 03/23/2018 HISTORY: Epigastric pain post PEG tube replacement. CT DLP: 1645.6 mGycm Automated exposure control for dose reduction was used. TECHNIQUE: Helical acquisition of images was performed from the lung bases through the pelvis. CONTRAST: Performed without Oral Contrast and with IV Contrast, patient injected with 100ml mL of Isovue 300. FINDINGS: Lung bases are clear. There is no pleural effusion. Heart size is normal. There is no pericardial eff usion. Liver spleen pancreas appear normal. There are clips from cholecystectomy. There is gastrostomy tube noted. This appears in good position. The catheter tip is in the third part of the duodenum. There is no adrenal mass. Kidneys show satisfactory contrast opacification. There is no hydronephrosi s. Ureters are not dilated. There is 2 cm cortical cyst lower pole left kidney. There is 1.5 cm corti aurelio cyst upper pole right kidney. There is no retroperitoneal adenopathy. There is no mesenteric nato opathy or edema. There are few diverticula in the sigmoid colon. I see no intestinal wall thickening. There are no dilated loops. Appendix appears normal. There is no inguinal hernia. There is no ascite s. Lumbar spine is intact. Bony pelvis appears intact. There is no evidence of pneumoperitoneum. IMPRESSION: GASTROSTOMY TUBE APPEARS IN GOOD POSITION. THE BALLOON IS INFLATED IN GOOD POSITION IN THE GASTRIC AN TERIOR FUNDUS. THE CATHETER TIP IS IN THE DISTAL DUODENUM AND HAS BEEN PULLED BACK FROM THE PROXIMAL JEJUNUM COMPARED TO OLD EXAM.
[2018-03-29 20:07] LABS: Creatine Kinase <20 U/L (55-170)
[2018-03-29] MEDS ORDERED: HYDROmorphone 1 MG/ML 1 ML SYRINGE IVP STA (20:18)
[2018-03-29 20:19] LABS: Creatine Kinase MB 0.5 ng/mL (0.0-2.4); Troponin I <0.012 ng/mL (0.000-0.034)
[2018-03-29] MEDS ORDERED: NALOXONE 0.4 MG/ML 1 ML VIAL IV PRN (20:20)
[2018-03-29] MEDS ORDERED: ONDANSETRON 4 MG/2 ML VIAL IVP PRN (20:20)
[2018-03-29] MEDS: SODIUM CHLORIDE 0.9% 1,000 ML IV SCH (20:57)
[2018-03-29 21:22] LABS: Appearance,Urine Clear (Clear); Bilirubin,Urine Negative (Negative); Blood,Urine Negative (Negative); Color,Urine Yellow; Glucose,Urine (UA) Negative (Negative); Ketones,Urine Negative (Negative); Leukocyte Esterase,Urine Negative (Negative); Nitrite,Urine Negative (Negative); Protein,Urine Trace (Negative); Urobilinogen,Urine <2.0 mg/dL (<2.0)
[2018-03-29 21:30] LABS: Specific Gravity,Urine >1.050 (1.001-1.035)
[2018-03-30] MEDS: HYDROmorphone 1 MG/ML 1 ML SYRINGE IVP PRN ×6 (00:03→20:33)
[2018-03-30] MEDS: SODIUM CHLORIDE 0.9% 1,000 ML IV SCH ×6 (04:03→23:30)
[2018-03-30] MEDS: FAMOTIDINE 20 MG/2 ML VIAL IV SCH (20:33)
[2018-03-30] MEDS: HEPARIN SODIUM,PORCINE 5,000 UNIT/ML 1 ML VIAL SQ SCH (20:33)
--- NOTE | 2018-03-30 22:31 | P.CONS ---
History of Present Illness - Reason for Consult Consult date: 03/30/18 Pancreatitis Requesting physician: Aubrey E Sheet - Chief Complaint Abdominal pain - History of Present Illness The patient is a very pleasant 57-year-old male with a known history of asthma, COPD, hypertension, sleep apnea and chronic pancreatitis who presented to the emergency department with complaints of worsening abdominal pain. The patient has a known history of chronic pancreatitis for which she follows up at the [facility]. 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 He reports he is not had an exacerbation of his pancreatitis for approximately one year. He was recently hospitalized for difficulty breathing and at that time the patient was noted to have a problem with a J-tube which he had placed for feeding during exacerbations of his pancreatitis. The patient recently had the J-tube replaced at the [facility]. He reports that since this happened the abdominal pain began. The patient reports that the pain is in the epigastric region, sharp in quality and associated with decreased oral intake, and nausea without vomiting. The patient reports that the episode is similar to prior episodes of pancreatitis in the past and presented to the emergency room for further evaluation. He denies any alcohol or tobacco use. The patient had a lipase drawn on admission which was significant for a value of 1295. He also had a CT exam which showed good placement of the feeding tube in the duodenum. Currently he is receiving supportive care with fluids and pain control and reports some improvement in his symptoms. Review of Systems REVIEW OF SYSTEMS: CONSTITUTIONAL: Denies any fevers, chills, weight change or fatigue. CARDIOVASCULAR: Denies any chest pain, palpitations high or low blood pressures RESPIRATORY: Denies any shortness of breath, hemoptysis or cough. GENITOURINARY: No dysuria or hematuria. MUSCULOSKELETAL: No weakness reported. SKIN: Denies any new rashes or lesions, jaundice or pallor. PSYCHIATRIC: Denies any depression or anxiety. NEUROLOGY: Denies headache, denies any new focal deficits. EARS/NOSE/THROAT: No recent hearing change, congestion, nasal discharge or sore throat. EYES: No pain in eyes, discharge or change in vision. GASTROINTESTINAL: As per HPI. Past Medical History Past Medical History: Asthma, COPD, Hypertension, Osteoarthritis (OA), Pneumonia , Sleep Apnea/CPAP/BIPAP Additional Past Medical History / Comment(s): Bronchitis, ANA does not use his device, chronic pancreatitis followed at [facility], uses pancreatic enzyme supplrments and has peg tube, DDD, chronic back pain, abdominal pain, chronic bilateral lower leg edema, gout bilateral feet in the past, bilateral tinnitis, L hand crush injury with surgeries-index finger amp. History of Any Multi-Drug Resistant Organisms: None Reported Past Surgical History: Cholecystectomy, Orthopedic Surgery Additional Past Surgical History / Comment(s): Feeding tube, pacreatic stent, EGDs/colonoscopies, bronchoscopy, lipoma excision L proximal humerus, left knee arthroscopies, L hand crush injury with surgeries. Past Anesthesia/Blood Transfusion Reactions: No Reported Reaction Additional Past Anesthesia/Blood Transfusion Reaction / Comm: has never received blood Smoking Status: Never smoker - Past Family History Father Family Medical History: Congestive Heart Failure (CHF), Diabetes Mellitus Additional Family Medical History / Comment(s): Father at the age of 75 yrs from CHF. Mother Family Medical History: Congestive Heart Failure (CHF), Diabetes Mellitus Additional Family Medical History / Comment(s): Mother at the age of 84 yrs from CHF Medications and Allergies Home Medications Medication Instructions Recorded Confirmed Type Montelukast [Singulair] 10 mg PO HS 01/16/14 03/29/18 History Budesonide-Formot 160-4.5 Mcg 2 puff INHALATION BID 12/30/15 03/29/18 History [Symbicort 160-4.5 Mcg Inhaler] Bumetanide [BUMEX] 2 mg PO DAILY 12/30/15 03/29/18 History Cholecalciferol [Vitamin D3] 1,000 unit PO DAILY 06/15/17 03/29/18 History Lipase/Protease/Amylase [Zenpep Dr 20,000 units PO AC-TID 06/15/17 03/29/18 History 5,000 Units Capsule] Losartan Potassium [Cozaar] 50 mg PO DAILY 06/15/17 03/29/18 History Multivitamins, Thera [Multivitamin 1 tab PO DAILY 06/15/17 03/29/18 History (formulary)] Vitamin A 8,000 unit PO DAILY 06/15/17 03/29/18 History Amoxic-Pot Clav 875-125Mg 1 tab PO Q12HR 03/23/18 03/29/18 History [Augmentin 875-125] Doxepin [SINEquan] 50 mg PO HS 03/23/18 03/29/18 History HYDROcodone/APAP 5-325MG [[place] 1 tab PO TID PRN 03/23/18 03/29/18 History 5-325] predniSONE See Taper PO DIRECTED 03/23/18 03/29/18 History Acetaminophen Tab [Tylenol] 500 mg PO Q6HR PRN tab 03/26/18 03/29/18 Rx Albuterol Inhaler [Ventolin Hfa 1 - 2 puff INHALATION RT-QID PRN 03/29/18 History Inhaler] Diclofenac 3% Topical 1 appful TOPICAL BID 03/29/18 03/29/18 History Ketoconazole 2% Shampoo [Nizoral] 1 applic TOPICAL Q4D 03/29/18 03/29/18 History Meloxicam [Mobic] 15 mg PO DAILY 03/29/18 03/29/18 History Metoclopramide HCl [Reglan] 5 - 10 mg PO QID 03/29/18 03/29/18 History Montelukast Sodium [Singulair] 10 mg PO HS 03/29/18 03/29/18 History Allergies Allergy/AdvReac Type Severity Reaction Status Date / Time No Known Allergies Allergy Verified 03/29/18 20:25 Physical Exam Vitals: Vital Signs Temp Pulse Resp BP Pulse Ox 03/30/18 16:27 16 03/30/18 14:57 98.2 F 85 16 127/68 95 03/30/18 06:00 97.8 F 79 17 137/80 99 Intake and Output 03/30/18 03/30/18 03/30/18 06:59 14:59 22:59 Other: Voiding Method Toilet Toilet # Voids 1 2 # Bowel Movements 0 On physical examination, patient appears comfortable in no apparent distress. HEAD: Normocephalic, atraumatic. EYES: No scleral icterus. No conjunctival injection. MOUTH: No lesions, tongue midline. NECK: Trachea midline, no gross abnormalities. CHEST: Clear to auscultation with no wheezing or rhonchi appreciated. HEART: Regular rate and rhythm. ABDOMEN: Soft, obese with mild tenderness in the epigastric region. Feeding tube is in place with no localized erythema, edema or signs of infection. Bowel sounds are positive. No organomegaly. No guarding or rigidity. EXTREMITIES: No pedal edema. SKIN: No rashes, no jaundice. NEUROLOGIC: Alert and oriented x3. No focal deficits. Results CBC & Chem 7: 03/29/18 19:20 03/29/18 19:20 CT scan - abdomen: report reviewed (Computed tomography scan of the abdomen noting a well-placed feeding tube in the duodenum.) Assessment and Plan (1) Acute pancreatitis Narrative/Plan: Known history of chronic pancreatitis for which he follows up at the [facility]. The patient is currently having an acute exacerbation with lipase noted to be 1295 on presentation with typical symptoms. The patient is on home angry [place] enzyme replacement and as needed pain control. He also has a feeding tube placed in the duodenum which is used for supplementing food drain episodes of abdominal pain. Current Visit: Yes Status: Acute Code(s): K85.90 - ACUTE PANCREATITIS WITHOUT NECROSIS OR INFECTION, UNSP SNOMED Code(s): 901394539 (2) Abdominal pain Narrative/Plan: Secondary to above. Current Visit: Yes Status: Acute Code(s): R10.9 - UNSPECIFIED ABDOMINAL PAIN SNOMED Code(s): 34720815 Plan: Supportive care Continue fluid hydration Continue pain control Diet as tolerated Continue pancreatic enzyme replacement Follow-up with [facility] as previously scheduled for continued management of chronic pancreatitis as outpatient We'll continue to monitor Thank you for allowing us to participate in the care of this patient we will continue to follow
--- NOTE | 2018-03-30 22:59 | P.HPIM ---
History of Present Illness This is a pleasant 57 years old male with past medical history of asthma/COPD, hypertension, degenerative joint disease, sleep apnea on BiPAP. Chronic back pain. Patient also has history of chronic pancreatitis and follows up at [facility] and he is on pancreatic enzyme supplementation. Patient status post PEG tube placement. Patient presents with abdominal pain, he did not have pancreatitis attack for about one year. however his PEG tube balloon needed to be fixed and his whole PEG tube was replaced about 5-6 day ago, since then he started to have epigastric abd pain radiating to the back ,severe, non specific, associated with nauseas but no vomiting. similar to previous attacks of pancreatitis. He usually f/u with [facility] , however he went to for his abd pain this time who recommended for him to come to hospital . Patient had computed tomography scan of the abdomen and pelvis which shows PEG tube tape in the third part of the duodenum. Pancreas appears normal. With kidney cyst. CBC and BMP were unremarkable except for mild low sodium at 136. Potassium 4.8. Creatinine 0.8. However his lipase was significantly elevated at 1295. Vitals looks stable On admission patient was started on IV fluids and pain management. Patient kept nothing by mouth. Review of Systems CONSTITUTIONAL: No fever, no malaise, no fatigue. HEENT: No recent visual problems or hearing problems. Denied any sore throat. CARDIOVASCULAR: No orthopnea, PND, no palpitations, no syncope. PULMONARY: No shortness of breath, no cough, no hemoptysis. GASTROINTESTINAL: No diarrhea, no nausea, no vomiting, no abdominal pain. Normoactive bowel sounds. NEUROLOGICAL: No headaches, no weakness, no numbness. HEMATOLOGICAL: Denies any bleeding or petechiae. GENITOURINARY: Denies any burning micturition, frequency, or urgency. MUSCULOSKELETAL/RHEUMATOLOGICAL: Denies any joint pain, swelling, or any muscle pain. ENDOCRINE: Denies any polyuria or polydipsia. Past Medical History Past Medical History: Asthma, COPD, Hypertension, Osteoarthritis (OA), Pneumonia , Sleep Apnea/CPAP/BIPAP Additional Past Medical History / Comment(s): Bronchitis, ANA does not use his device, chronic pancreatitis followed at [facility], uses pancreatic enzyme supplrments and has peg tube, DDD, chronic back pain, abdominal pain, chronic bilateral lower leg edema, gout bilateral feet in the past, bilateral tinnitis, L hand crush injury with surgeries-index finger amp. History of Any Multi-Drug Resistant Organisms: None Reported Past Surgical History: Cholecystectomy, Orthopedic Surgery Additional Past Surgical History / Comment(s): Feeding tube, pacreatic stent, EGDs/colonoscopies, bronchoscopy, lipoma excision L proximal humerus, left knee arthroscopies, L hand crush injury with surgeries. Past Anesthesia/Blood Transfusion Reactions: No Reported Reaction Additional Past Anesthesia/Blood Transfusion Reaction / Comment(s): has never received blood Smoking Status: Never smoker - Past Family History Father Family Medical History: Congestive Heart Failure (CHF), Diabetes Mellitus Additional Family Medical History / Comment(s): Father at the age of 75 yrs from CHF. Mother Family Medical History: Congestive Heart Failure (CHF), Diabetes Mellitus Additional Family Medical History / Comment(s): Mother at the age of 84 yrs from CHF Medications and Allergies Home Medications Medication Instructions Recorded Confirmed Type Montelukast [Singulair] 10 mg PO HS 01/16/14 03/29/18 History Budesonide-Formot 160-4.5 Mcg 2 puff INHALATION BID 12/30/15 03/29/18 History [Symbicort 160-4.5 Mcg Inhaler] Bumetanide [BUMEX] 2 mg PO DAILY 12/30/15 03/29/18 History Cholecalciferol [Vitamin D3] 1,000 unit PO DAILY 06/15/17 03/29/18 History Lipase/Protease/Amylase [Zenpep Dr 20,000 units PO AC-TID 06/15/17 03/29/18 History 5,000 Units Capsule] Losartan Potassium [Cozaar] 50 mg PO DAILY 06/15/17 03/29/18 History Multivitamins, Thera [Multivitamin 1 tab PO DAILY 06/15/17 03/29/18 History (formulary)] Vitamin A 8,000 unit PO DAILY 06/15/17 03/29/18 History Amoxic-Pot Clav 875-125Mg 1 tab PO Q12HR 03/23/18 03/29/18 History [Augmentin 875-125] Doxepin [SINEquan] 50 mg PO HS 03/23/18 03/29/18 History HYDROcodone/APAP 5-325MG [[place] 1 tab PO TID PRN 03/23/18 03/29/18 History 5-325] predniSONE See Taper PO DIRECTED 03/23/18 03/29/18 History Acetaminophen Tab [Tylenol] 500 mg PO Q6HR PRN tab 03/26/18 03/29/18 Rx Albuterol Inhaler [Ventolin Hfa 1 - 2 puff INHALATION RT-QID PRN 03/29/18 History Inhaler] Diclofenac 3% Topical 1 appful TOPICAL BID 03/29/18 03/29/18 History Ketoconazole 2% Shampoo [Nizoral] 1 applic TOPICAL Q4D 03/29/18 03/29/18 History Meloxicam [Mobic] 15 mg PO DAILY 03/29/18 03/29/18 History Metoclopramide HCl [Reglan] 5 - 10 mg PO QID 03/29/18 03/29/18 History Montelukast Sodium [Singulair] 10 mg PO HS 03/29/18 03/29/18 History Allergies Allergy/AdvReac Type Severity Reaction Status Date / Time No Known Allergies Allergy Verified 03/29/18 20:25 Physical Exam Vitals: Vital Signs Temp Pulse Pulse Resp BP BP Pulse Ox 03/30/18 16:27 16 03/30/18 14:57 98.2 F 85 16 127/68 95 03/30/18 06:00 97.8 F 79 17 137/80 99 03/29/18 22:09 97.8 F 82 16 131/88 92 L 03/29/18 20:59 98.9 F 85 20 140/91 99 Intake and Output 03/30/18 03/30/18 03/30/18 06:59 14:59 22:59 Other: Voiding Method Toilet Toilet # Voids 1 2 # Bowel Movements 0 GENERAL: The patient is alert and oriented x3, not in any acute distress. Well developed, well nourished. HEENT: Pupils are round and equally reacting to light. EOMI. No scleral icterus. No conjunctival pallor. Normocephalic, atraumatic. No pharyngeal erythema. No thyromegaly. CARDIOVASCULAR: S1 and S2 present. No murmurs, rubs, or gallops. PULMONARY: Chest is clear to auscultation, no wheezing or crackles. -ABDOMEN: Soft, epigastric tenderness with no rebound tenderness or guarding. nondistended, normoactive bowel sounds. No palpable organomegaly. MUSCULOSKELETAL: No joint swelling or deformity. EXTREMITIES: No cyanosis, clubbing, or pedal edema. NEUROLOGICAL: Gross neurological examination did not reveal any focal deficits. SKIN: No rashes. Results CBC & Chem 7: 03/29/18 19:20 03/29/18 19:20 Labs: Abnormal Lab Results - Last 24 Hours (Table) 03/29/18 03/29/18 03/29/18 Range/Units 19:20 19:20 20:40 Sodium 136 L (137-145) mmol/L BUN 30 H (9-20) mg/dL Total Creatine Kinase <20 L (55-170) U/L Amylase 120 H (30-110) U/L Lipase 1295 H (23-300) U/L Ur Specific [place] >1.050 H (1.001-1.035) Urine Protein Trace H (Negative) Thrombosis Risk Factor Assmnt - Choose All That Apply Each Factor Represents 1 point: Abnormal pulmonary function (COPD), Age 41-60 years, Obesity (BMI >25) Other Risk Factors: No Thrombosis Risk Factor Assessment Total Risk Factor Score: 3 Thrombosis Risk Factor Assessment Level: Moderate Risk Assessment and Plan Assessment: Acute pancreatitis Chronic pancreatitis, status post PEG tube placement and pancreatic enzyme supplementation Kidney cyst, patient informed and asked to follow-up with his PCP and he agrees History of asthma/COPD, hypertension, degenerative joint disease, sleep apnea on BiPAP. Chronic back pain Plan: This is a pleasant 57 years old male who presents with acute pancreatitis. Labs and medication were reviewed. Continue with the same medication. Continue with IV fluids. Pain medication. Symptomatic treatment. Keep the patient nothing by mouth and when he is ready advance diet as tolerated. GI consultation. DVT and GI prophylaxis. Further recommendations based on the clinical course of the patient in DVT prophylaxis: Heparin subcutaneous GI prophylaxis: Pepcid Prognosis is guarded
[2018-03-31] MEDS: HYDROmorphone 1 MG/ML 1 ML SYRINGE IVP PRN ×6 (00:33→22:52)
[2018-03-31] MEDS: SODIUM CHLORIDE 0.9% 1,000 ML IV SCH ×4 (01:26→22:58)
[2018-03-31] MEDS: FAMOTIDINE 20 MG/2 ML VIAL IV SCH ×2 (07:44→22:46)
[2018-03-31] MEDS: HEPARIN SODIUM,PORCINE 5,000 UNIT/ML 1 ML VIAL SQ SCH ×2 (07:44→22:48)
[2018-03-31 08:44] LABS: Basophils % (A) 0 %; Eosinophils # (A) 0.2 k/uL (0-0.7); Eosinophils % (A) 3 %; HCT 38.8 % (39.0-53.0); HGB 12.6 gm/dL (13.0-17.5); Lymphocytes # (A) 1.3 k/uL (1.0-4.8); Lymphocytes % (A) 19 %; MCH 30.9 pg (25.0-35.0); MCHC 32.5 g/dL (31.0-37.0); MCV 95.1 fL (80.0-100.0); Mean Platelet Volume 6.9; Monocytes # (A) 0.4 k/uL (0-1.0); Monocytes % (A) 6 %; Neutrophils # (A) 4.9 k/uL (1.3-7.7); Neutrophils % (A) 70 %; Platelet Count 180 k/uL (150-450); RBC 4.08 m/uL (4.30-5.90); RDW 13.1 % (11.5-15.5)
[2018-03-31 08:54] LABS: ALT 25 U/L (21-72); AST 15 U/L (17-59); Albumin 2.9 g/dL (3.5-5.0); Alkaline Phosphatase 78 U/L (38-126); Anion Gap 8 mmol/L; Blood Urea Nitrogen 16 mg/dL (9-20); Carbon Dioxide 25 mmol/L (22-30); Chloride 102 mmol/L (98-107); Glucose 65 mg/dL (74-99); Potassium 4.6 mmol/L (3.5-5.1); Sodium 135 mmol/L (137-145); Total Bilirubin 0.9 mg/dL (0.2-1.3); Total Protein 5.5 g/dL (6.3-8.2)
--- NOTE | 2018-03-31 10:41 | P.PN ---
Subjective This is a pleasant 57 years old male with past medical history of asthma/COPD, hypertension, degenerative joint disease, sleep apnea on BiPAP. Chronic back pain. Patient also has history of chronic pancreatitis and follows up at [facility] and he is on pancreatic enzyme supplementation. Patient status post PEG tube placement. Patient presents with abdominal pain, he did not have pancreatitis attack for about one year. however his PEG tube balloon needed to be fixed and his whole PEG tube was replaced about 5-6 day ago, since then he started to have epigastric abd pain radiating to the back ,severe, non specific, associated with nauseas but no vomiting. similar to previous attacks of pancreatitis. He usually f/u with [facility] , however he went to for his abd pain this time who recommended for him to come to hospital . Patient had computed tomography scan of the abdomen and pelvis which shows PEG tube tape in the third part of the duodenum. Pancreas appears normal. With kidney cyst. CBC and BMP were unremarkable except for mild low sodium at 136. Potassium 4.8. Creatinine 0.8. However his lipase was significantly elevated at 1295. Vitals looks stable On admission patient was started on IV fluids and pain management. Patient kept nothing by mouth. 03/31/2018 Patient still have epigastric abdominal pain, 4/10 in severity. Patient remains nothing by mouth and he doesn't feel ready to start feeding it. His total normal saline at 200 L/h. Continue with pain medication as Dilaudid when necessary. GI consult is appreciated. And they are following the patient. They recommended patient follow-up with [facility] upon discharge Objective - Vital Signs Vital signs: Vital Signs Temp 98.6 F 03/31/18 07:00 Pulse 79 03/31/18 07:00 Resp 16 03/31/18 07:40 BP 144/82 03/31/18 07:00 Pulse Ox 96 03/31/18 07:00 Intake & Output 03/30/18 03/31/18 03/31/18 18:59 06:59 18:59 Intake Total 0 Balance 0 Weight 91.5 kg Intake: Oral 0 Other: Voiding Method Toilet Toilet Toilet # Voids 2 # Bowel Movements 0 0 - Exam GENERAL: The patient is alert and oriented x3, not in any acute distress. Well developed, well nourished. HEENT: Pupils are round and equally reacting to light. EOMI. No scleral icterus. No conjunctival pallor. Normocephalic, atraumatic. No pharyngeal erythema. No thyromegaly. CARDIOVASCULAR: S1 and S2 present. No murmurs, rubs, or gallops. PULMONARY: Chest is clear to auscultation, no wheezing or crackles. -ABDOMEN: Soft, epigastric tenderness with no rebound tenderness or guarding. nondistended, normoactive bowel sounds. No palpable organomegaly. PEG tube is in a Place with no tube feedings MUSCULOSKELETAL: No joint swelling or deformity. EXTREMITIES: No cyanosis, clubbing, or pedal edema. NEUROLOGICAL: Gross neurological examination did not reveal any focal deficits. SKIN: No rashes. - Labs CBC & Chem 7: 03/31/18 07:49 03/31/18 07:49 Labs: Abnormal Lab Results - Last 24 Hours (Table) 03/31/18 03/31/18 Range/Units 07:49 07:49 RBC 4.08 L (4.30-5.90) m/uL Hgb 12.6 L (13.0-17.5) gm/dL Hct 38.8 L (39.0-53.0) % Sodium 135 L (137-145) mmol/L Glucose 65 L (74-99) mg/dL Calcium 8.0 L (8.4-10.2) mg/dL AST 15 L (17-59) U/L Total Protein 5.5 L (6.3-8.2) g/dL Albumin 2.9 L (3.5-5.0) g/dL Assessment and Plan Assessment: Acute pancreatitis Chronic pancreatitis, status post PEG tube placement and pancreatic enzyme supplementation Kidney cyst, patient informed and asked to follow-up with his PCP and he agrees History of asthma/COPD, hypertension, degenerative joint disease, sleep apnea on BiPAP. Chronic back pain Plan: This is a pleasant 57 years old male who presents with acute pancreatitis. Labs and medication were reviewed. Continue with the same medication. Continue with IV fluids. Pain medication. Symptomatic treatment. Keep the patient nothing by mouth and when he is ready advance diet as tolerated. GI consultation. DVT and GI prophylaxis. Further recommendations based on the clinical course of the patient in DVT prophylaxis: Heparin subcutaneous GI prophylaxis: Pepcid Prognosis is guarded
[2018-03-31] MEDS: MORPHINE SULFATE 4 MG/ML SYRINGE IV PRN (19:40)
--- NOTE | 2018-03-31 23:43 | P.PN ---
Subjective Progress Note Date: 03/31/18 Principal diagnosis: Pancreatitis, acute on chronic Patient was feeling better but reports some worsening of his abdominal pain after trying liquid diet. No change in bowel habits nausea did occur after attempting to drink but no vomiting reported. Objective - Vital Signs Vital signs: Vital Signs Temp 98.6 F 03/31/18 15:01 Pulse 88 03/31/18 15:01 Resp 20 03/31/18 15:01 BP 141/91 03/31/18 15:01 Pulse Ox 94 L 03/31/18 15:01 Intake & Output 03/31/18 03/31/18 04/01/18 06:59 18:59 06:59 Intake Total 0 Balance 0 Weight 91.5 kg Intake: Oral 0 Other: Voiding Method Toilet Toilet # Voids 3 # Bowel Movements 0 - Exam Constitutional: Lying in bed in no apparent distress Head: normocephalic/atraumatic Eyes: No icterus, no injection Mouth: Moist mucous membranes Nose: No discharge noted Neck: Trachea midline Lungs: Normal air entry in all lung yepez, no wheezing appreciated Abdomen: Soft, tender to palpation worse in the epigastric region of the abdomen , nondistended, normal bowel sounds. No guarding or rigidity Skin: No rashes, no jaundice Neuro: Awake alert and oriented 3, no focal deficits - Labs CBC & Chem 7: 04/01/18 09:25 04/01/18 09:25 Labs: Abnormal Lab Results - Last 24 Hours (Table) 03/31/18 03/31/18 Range/Units 07:49 07:49 RBC 4.08 L (4.30-5.90) m/uL Hgb 12.6 L (13.0-17.5) gm/dL Hct 38.8 L (39.0-53.0) % Sodium 135 L (137-145) mmol/L Glucose 65 L (74-99) mg/dL Calcium 8.0 L (8.4-10.2) mg/dL AST 15 L (17-59) U/L Total Protein 5.5 L (6.3-8.2) g/dL Albumin 2.9 L (3.5-5.0) g/dL Assessment and Plan (1) Acute pancreatitis Narrative/Plan: Known history of chronic pancreatitis for which he follows up at the [facility]. The patient is currently having an acute exacerbation with lipase noted to be 1295 on presentation with typical symptoms. The patient is on home pancreatic enzyme replacement and as needed pain control. He also has a feeding tube placed in the duodenum which is used for supplementing food drain episodes of abdominal pain. Current Visit: Yes Status: Acute Code(s): K85.90 - ACUTE PANCREATITIS WITHOUT NECROSIS OR INFECTION, UNSP SNOMED Code(s): 141566917 (2) Abdominal pain Narrative/Plan: Secondary to above. Current Visit: Yes Status: Acute Code(s): R10.9 - UNSPECIFIED ABDOMINAL PAIN SNOMED Code(s): 76310582 Plan: Supportive care Continue fluid hydration Continue pain control Diet as tolerated, with patient given oral liquid supplements to administered through the small bowel feeding tube Continue pancreatic enzyme replacement Follow-up with the [facility] as previously scheduled for continued management of chronic pancreatitis as outpatient We'll continue to monitor Thank you for allowing us to participate in the care of this patient we will continue to follow
[2018-04-01] MEDS: SODIUM CHLORIDE 0.9% 1,000 ML IV SCH ×3 (01:31→12:05)
[2018-04-01] MEDS: HYDROmorphone 1 MG/ML 1 ML SYRINGE IVP PRN ×3 (02:48→13:50)
[2018-04-01] MEDS: HEPARIN SODIUM,PORCINE 5,000 UNIT/ML 1 ML VIAL SQ SCH ×2 (07:27→21:18)
[2018-04-01] MEDS: FAMOTIDINE 20 MG/2 ML VIAL IV SCH ×2 (07:27→21:18)
[2018-04-01 10:10] LABS: Basophils % (A) 0 %; Eosinophils # (A) 0.2 k/uL (0-0.7); Eosinophils % (A) 2 %; HCT 44.7 % (39.0-53.0); HGB 14.7 gm/dL (13.0-17.5); Lymphocytes # (A) 1.6 k/uL (1.0-4.8); Lymphocytes % (A) 21 %; MCHC 32.8 g/dL (31.0-37.0); MCV 94.5 fL (80.0-100.0); Mean Platelet Volume 6.8; Monocytes # (A) 0.5 k/uL (0-1.0); Monocytes % (A) 7 %; Neutrophils # (A) 5.3 k/uL (1.3-7.7); Neutrophils % (A) 68 %; Platelet Count 232 k/uL (150-450); RBC 4.73 m/uL (4.30-5.90); RDW 13.2 % (11.5-15.5); WBC 7.9 k/uL (3.8-10.6)
[2018-04-01 10:19] LABS: ALT 25 U/L (21-72); AST 17 U/L (17-59); Albumin 3.7 g/dL (3.5-5.0); Alkaline Phosphatase 91 U/L (38-126); Anion Gap 8 mmol/L; Blood Urea Nitrogen 15 mg/dL (9-20); Carbon Dioxide 26 mmol/L (22-30); Chloride 101 mmol/L (98-107); Glucose 118 mg/dL (74-99); Potassium 4.7 mmol/L (3.5-5.1); Sodium 135 mmol/L (137-145); Total Bilirubin 0.9 mg/dL (0.2-1.3); Total Protein 6.4 g/dL (6.3-8.2)
[2018-04-01] MEDS: MORPHINE SULFATE 4 MG/ML SYRINGE IV PRN (10:34)
[2018-04-01] MEDS ORDERED: ALBUTEROL NEBULIZED 2.5 MG/3 ML INHALATION PRN (14:56)
[2018-04-01] MEDS ORDERED: ACETAMINOPHEN TAB 500 MG TAB PO PRN (14:56)
--- NOTE | 2018-04-01 15:55 | P.PN ---
Subjective Patient is admitted with the acute pancreatitis is clinically doing better. The IV fluids patient was started on full liquid diet patient will be resumed on oral medications Dilaudid will be discontinued. Patient also still complaining of abdominal pain his abdomen is soft. Constitutional: Denied any fatigue denied any fever. Cardio vascular: denied any chest pain, palpitations Gastrointestinal denied any nausea vomiting Pulmonary: Denied any shortness of breath cough Neurologic denied any new focal deficits Objective - Vital Signs Vital signs: Vital Signs Temp 98.1 F 04/01/18 07:00 Pulse 92 04/01/18 07:00 Resp 18 04/01/18 08:00 BP 154/73 04/01/18 07:00 Pulse Ox 97 04/01/18 07:00 Intake & Output 03/31/18 04/01/18 04/01/18 18:59 06:59 18:59 Intake Total 0 200 Balance 0 200 Intake: Oral 0 200 Tube Feeding 0 Other: Voiding Method Toilet Toilet # Voids 3 1 # Bowel Movements 0 - Exam PHYSICAL EXAMINATION: GENERAL: The patient is alert and oriented x3, not in any acute distress. Obese HEENT: Pupils are round and equally reacting to light. EOMI. No scleral icterus. No conjunctival pallor. Normocephalic, atraumatic. No pharyngeal erythema. No thyromegaly. CARDIOVASCULAR: S1 and S2 present. No murmurs, rubs, or gallops. PULMONARY: Chest is clear to auscultation, no wheezing or crackles. ABDOMEN: Soft, nontender, nondistended, normoactive bowel sounds. No palpable organomegaly. MUSCULOSKELETAL: No joint swelling or deformity. EXTREMITIES: No cyanosis, clubbing, or pedal edema. NEUROLOGICAL: Gross neurological examination did not reveal any focal deficits. SKIN: No rashes. - Labs CBC & Chem 7: 04/01/18 09:25 04/01/18 09:25 Labs: Abnormal Lab Results - Last 24 Hours (Table) 04/01/18 Range/Units 09:25 Sodium 135 L (137-145) mmol/L Glucose 118 H (74-99) mg/dL Assessment and Plan Plan: Assessment and Plan Plan: Acute pancreatitis Chronic pancreatitis, status post PEG tube placement and pancreatic enzyme supplementation patient was started on diet will advance as tolerated possibility of discharge tomorrow Kidney cyst, patient informed and asked to follow-up as an outpatient History of asthma/COPD, hypertension, degenerative joint disease, sleep apnea on BiPAP. Chronic back pain
[2018-04-01] MEDS: HYDROcodone/APAP 5-325MG 1 EACH TAB PO PRN (17:07)
[2018-04-01] MEDS: SYMBICORT 160-4.5 MCG INHALER INHALATION SCH (20:39)
[2018-04-01] MEDS: DICLOFENAC 3% TOPICAL SCH (20:40)
[2018-04-01] MEDS ORDERED: DOXEPIN 25 MG CAP PO SCH (21:00)
[2018-04-01] MEDS ORDERED: MONTELUKAST 10 MG TAB PO SCH (21:00)
[2018-04-01] MEDS ORDERED: AMOXIC-POT CLAV 875-125MG 1 EACH TAB PO SCH (21:00)
[2018-04-02 05:40] VITALS: BP 141/84; PULSE 86; RESP 16; TEMP 97.9
[2018-04-02] MEDS: SYMBICORT 160-4.5 MCG INHALER INHALATION SCH (07:39)
[2018-04-02] MEDS: DICLOFENAC 3% TOPICAL SCH (08:12)
[2018-04-02] MEDS: HEPARIN SODIUM,PORCINE 5,000 UNIT/ML 1 ML VIAL SQ SCH (08:12)
[2018-04-02] MEDS: FAMOTIDINE 20 MG/2 ML VIAL IV SCH (08:12)
[2018-04-02] MEDS: HYDROcodone/APAP 5-325MG 1 EACH TAB PO PRN (08:21)
[2018-04-02 08:45] VITALS: BMI 28.9
[2018-04-02] MEDS ORDERED: LOSARTAN 50 MG TAB PO SCH (09:00)
[2018-04-02 09:10] LABS: Basophils % (A) 0 %; Eosinophils # (A) 0.1 k/uL (0-0.7); Eosinophils % (A) 2 %; HCT 43.9 % (39.0-53.0); HGB 14.2 gm/dL (13.0-17.5); Lymphocytes # (A) 1.4 k/uL (1.0-4.8); Lymphocytes % (A) 27 %; MCH 31.3 pg (25.0-35.0); MCHC 32.4 g/dL (31.0-37.0); MCV 96.6 fL (80.0-100.0); Mean Platelet Volume 6.6; Monocytes # (A) 0.4 k/uL (0-1.0); Monocytes % (A) 8 %; Neutrophils # (A) 3.2 k/uL (1.3-7.7); Neutrophils % (A) 60 %; Platelet Count 201 k/uL (150-450); RBC 4.54 m/uL (4.30-5.90); RDW 13.5 % (11.5-15.5); WBC 5.3 k/uL (3.8-10.6)
[2018-04-02 09:33] LABS: ALT 29 U/L (21-72); AST 16 U/L (17-59); Albumin 3.4 g/dL (3.5-5.0); Alkaline Phosphatase 79 U/L (38-126); Anion Gap 4 mmol/L; Blood Urea Nitrogen 11 mg/dL (9-20); Calcium 8.7 mg/dL (8.4-10.2); Carbon Dioxide 28 mmol/L (22-30); Chloride 105 mmol/L (98-107); Glucose 89 mg/dL (74-99); Sodium 137 mmol/L (137-145); Total Bilirubin 0.7 mg/dL (0.2-1.3); Total Protein 6.1 g/dL (6.3-8.2)
[2018-04-02 11:00] LABS: Amylase 50 U/L (30-110); Lipase 435 U/L (23-300)
== END 2018-04-02 14:16 | disposition home or self-care (01) | DRG 440 ==
LOC: EC 18:40 → 4MS4W 20:41
PROVIDERS: ADMIT Hospitalist; ATTEND Hospitalist
DX: K85.90 Acute pancreatitis without necrosis or infection, unspecified (principal); K86.1 Other chronic pancreatitis; G47.33 Obstructive sleep apnea (adult) (pediatric); G89.29 Other chronic pain; I10 Essential (primary) hypertension; J44.9 Chronic obstructive pulmonary disease, unspecified; M19.90 Unspecified osteoarthritis, unspecified site; N28.1 Cyst of kidney, acquired; M10.9 Gout, unspecified; M54.9 Dorsalgia, unspecified; H93.19 Tinnitus, unspecified ear; E66.9 Obesity, unspecified; Z68.28 Body mass index [BMI] 28.0-28.9, adult; Z79.1 Long term (current) use of non-steroidal anti-inflammatories (NSAID); Z79.51 Long term (current) use of inhaled steroids; Z79.899 Other long term (current) drug therapy; Z93.1 Gastrostomy status; Z87.01 Personal history of pneumonia (recurrent); Z90.49 Acquired absence of other specified parts of digestive tract; Z89.022 Acquired absence of left finger(s); Z82.49 Family history of ischemic heart disease and other diseases of the circulatory system; Z83.3 Family history of diabetes mellitus
CPT/HCPCS: 36415; 74177; 80053; 81003; 82150; 82550; 82553; 83690; 84484; 85025; 94640; 96361; 96374; 96375; 99285

== ENCOUNTER 2018-06-29 19:28 | Emergency (ER) | payer BC ==
[2018-06-29 20:13] VITALS: TEMP 98.4
[2018-06-29] MEDS ORDERED: SODIUM CHLORIDE 0.9% 1,000 ML IV STA (20:53)
[2018-06-29] MEDS ORDERED: HYDROmorphone 1 MG/ML 1 ML SYRINGE IVP STA ×2 (20:56→23:45)
--- NOTE | 2018-06-29 20:58 | ED ---
General Adult HPI - General Chief complaint: Abdominal Pain Stated complaint: pancreatitis Source: patient, family Mode of arrival: ambulatory Limitations: no limitations - Related Data Home Medications Medication Instructions Recorded Confirmed Budesonide-Formot 160-4.5 Mcg 2 puff INHALATION RT-BID 12/30/15 06/29/18 [Symbicort 160-4.5 Mcg Inhaler] Bumetanide [BUMEX] 2 mg PO DAILY 12/30/15 06/29/18 Cholecalciferol [Vitamin D3] 1,000 unit PO DAILY 06/15/17 06/29/18 Lipase/Protease/Amylase [Zenpep Dr 20,000 units PO AC-TID 06/15/17 06/29/18 5,000 Unit Capsule] Losartan Potassium [Cozaar] 50 mg PO DAILY 06/15/17 06/29/18 Multivitamins, Thera [Multivitamin 1 tab PO DAILY 06/15/17 06/29/18 (formulary)] Vitamin A 8,000 unit PO DAILY 06/15/17 06/29/18 Doxepin [SINEquan] 50 mg PO HS 03/23/18 06/29/18 HYDROcodone/APAP 5-325MG [Portis 1 tab PO TID PRN 03/23/18 06/29/18 5-325] Albuterol Inhaler [Ventolin Hfa 1 - 2 puff INHALATION RT-QID PRN 03/29/18 Inhaler] Diclofenac 3% Topical 1 appful TOPICAL BID 03/29/18 06/29/18 Ketoconazole 2% Shampoo [Nizoral] 1 applic TOPICAL Q4D 03/29/18 06/29/18 Meloxicam [Mobic] 15 mg PO DAILY 03/29/18 06/29/18 Montelukast Sodium [Singulair] 10 mg PO HS 03/29/18 06/29/18 Ibuprofen [Motrin] 800 mg PO TID PRN 06/29/18 06/29/18 Previous Rx's Medication Instructions Recorded Acetaminophen Tab [Tylenol] 500 mg PO Q6HR PRN tab 03/26/18 Allergies Allergy/AdvReac Type Severity Reaction Status Date / Time No Known Allergies Allergy Verified 06/29/18 21:09 Review of Systems ROS Statement: Those systems with pertinent positive or pertinent negative responses have been documented in the HPI. ROS Other: All systems not noted in ROS Statement are negative. Past Medical History Past Medical History: Asthma, COPD, Hypertension, Osteoarthritis (OA), Pneumonia , Sleep Apnea/CPAP/BIPAP Additional Past Medical History / Comment(s): Bronchitis, ANA does not use his device, chronic pancreatitis followed at [facility], uses pancreatic enzyme supplrments and has peg tube, DDD, chronic back pain, abdominal pain, chronic bilateral lower leg edema, gout bilateral feet in the past, bilateral tinnitis, L hand crush injury with surgeries-index finger amp. History of Any Multi-Drug Resistant Organisms: None Reported Past Surgical History: Cholecystectomy, Orthopedic Surgery Additional Past Surgical History / Comment(s): Feeding tube, pacreatic stent, EGDs/colonoscopies, bronchoscopy, lipoma excision L proximal humerus, left knee arthroscopies, L hand crush injury with surgeries. Past Anesthesia/Blood Transfusion Reactions: No Reported Reaction Additional Past Anesthesia/Blood Transfusion Reaction / Comment(s): has never received blood Past Psychological History: No Psychological Hx Reported Smoking Status: Never smoker - Past Family History Father Family Medical History: Congestive Heart Failure (CHF), Diabetes Mellitus Additional Family Medical History / Comment(s): Father at the age of 75 yrs from CHF. Mother Family Medical History: Congestive Heart Failure (CHF), Diabetes Mellitus Additional Family Medical History / Comment(s): Mother at the age of 84 yrs from CHF General Exam Limitations: no limitations Course Vital Signs 06/29/18 06/29/18 20:06 21:22 Temperature 98.4 F Pulse Rate 83 78 Respiratory 20 18 Rate Blood Pressure 163/100 138/94 O2 Sat by Pulse 98 98 Oximetry Medical Decision Making - Medical Decision Making Dictation was produced using [id number] dictation software. please excuse any grammatical, word or spelling errors. Chief Complaint: 58-year-old male past medical history of chronic pancreatitis, asthma, COPD presents with abdominal pain with radiation to the back. History of Present Illness: This 78-year-old male with chief complaint of abdominal pain. He has history of chronic abdominal pain. Patient has history of pancreatitis. He's been evaluated [facility] where they can't find a underlying etiology. She was last admitted for pancreatitis back in March. She states she's been having symptoms for approximately 2 days. Patient does report having cholecystectomy. The ROS documented in this emergency department record has been reviewed and confirmed by me. Those systems with pertinent positive or negative responses have been documented in the HPI. All other systems are other negative and/or noncontributory. PHYSICAL EXAM: General Impression: Alert and oriented x3, not in acute distress HEENT: Normocephalic atraumatic, extra-ocular movements intact, pupils equal and reactive to light bilaterally, mucous membranes moist. Cardiovascular: Heart regular rate and rhythm, S1&S2 audible, no murmurs, rubs or gallops Chest: Lungs clear to auscultation bilaterally, no rhonchi, no wheeze, no rales Abdomen: Diffuse abdominal tenderness, worse in the epigastric area. Musculoskeletal: Pulses present and equal in all extremities, no peripheral edema Motor: Power 5/5 bilaterally, no focal deficits noted Neurological: CN II-XII grossly intact, no focal motor or sensory deficits noted Skin: Intact with no visualized rashes Psych: Normal affect and mood ED course: 78-year-old male with chronic abdominal pain and chronic pancreatic tenderness presents with chief complaint of abdominal pain. Patient does have history of pancreatitis. Has been evaluated at [facility]. At this point, patient reports that there is no clear etiology of his symptoms. Vital signs upon arrival are within acceptable limits.Laboratory evaluation obtained. CBC unremarkable. Metabolic panel is unremarkable. Lipase is negative. Urinalysis shows 1+ ketones. Patient given intravenous fluids and Dilaudid. He is also given GI cocktail. Patient reevaluated after several hours and found to have mildly improved symptoms. Patient is amenable for discharge. He is agreeable. Patient is told to return to the emergency department with worsening pain, fevers or by mouth intolerance. at this point clinical presentation is not consistent with pancreatitis. Patient symptoms may be related to gas pain. He is told to use his opiate medication sparingly. Patient also told to ambulate and consume high fiber foods. EKG interpretation: Ventricular rate 77, normal sinus rhythm,. Interval 196, QRS 112, QTC 423. No ID prolongation, no QTC prolongation, no ST or T-wave changes noted. Overall, this EKG is unremarkable - Lab Data Result diagrams: 06/29/18 21:10 06/29/18 21:10 Lab Results 06/29/18 06/29/18 06/29/18 Range/Units 21:10 21:10 21:15 WBC 4.9 (3.8-10.6) k/uL RBC 3.80 L (4.30-5.90) m/uL Hgb 11.7 L (13.0-17.5) gm/dL Hct 36.1 L (39.0-53.0) % MCV 94.9 (80.0-100.0) fL MCH 30.6 (25.0-35.0) pg MCHC 32.3 (31.0-37.0) g/dL RDW 13.2 (11.5-15.5) % Plt Count 231 (150-450) k/uL Neutrophils % (Manual) 44 % Lymphocytes % (Manual) 47 % Monocytes % (Manual) 5 % Eosinophils % (Manual) 3 % Basophils % (Manual) 1 % Neutrophils # (Manual) 2.16 (1.3-7.7) k/uL Lymphocytes # (Manual) 2.30 (1.0-4.8) k/uL Monocytes # (Manual) 0.25 (0-1.0) k/uL Eosinophils # (Manual) 0.15 (0-0.7) k/uL Basophils # (Manual) 0.05 (0-0.2) k/uL Nucleated RBCs 0 (0-0) /100 WBC Manual Slide Review Performed Sodium 139 (137-145) mmol/L Potassium 4.2 (3.5-5.1) mmol/L Chloride 107 (98-107) mmol/L Carbon Dioxide 25 (22-30) mmol/L Anion Gap 7 mmol/L BUN 22 H (9-20) mg/dL Creatinine 1.13 (0.66-1.25) mg/dL Est GFR (CKD-EPI)AfAm 83 (>60 ml/min/1.73 sqM) Est GFR (CKD-EPI)NonAf 72 (>60 ml/min/1.73 sqM) Glucose 86 (74-99) mg/dL Calcium 9.1 (8.4-10.2) mg/dL Total Bilirubin 0.6 (0.2-1.3) mg/dL AST 18 (17-59) U/L ALT 30 (21-72) U/L Alkaline Phosphatase 71 (38-126) U/L Total Protein 6.4 (6.3-8.2) g/dL Albumin 3.9 (3.5-5.0) g/dL Lipase 75 (23-300) U/L Urine Color Yellow Urine Appearance Clear (Clear) Urine pH 6.0 (5.0-8.0) Ur Specific [place] 1.032 (1.001-1.035) Urine Protein Trace H (Negative) Urine Glucose (UA) Negative (Negative) Urine Ketones 1+ H (Negative) Urine Blood Negative (Negative) Urine Nitrite Negative (Negative) Urine Bilirubin Negative (Negative) Urine Urobilinogen <2.0 (<2.0) mg/dL Ur Leukocyte Esterase Negative (Negative) Disposition Clinical Impression: Abdominal pain Disposition: HOME SELF-CARE Condition: Good Instructions: Abdominal Pain (ED) Is patient prescribed a controlled substance at d/c from ED?: No Referrals: Ho Allen MD [Primary Care Provider] - 1-2 days Time of Disposition: 01:02
[2018-06-29 21:49] LABS: HCT 36.1 % (39.0-53.0); HGB 11.7 gm/dL (13.0-17.5); MCH 30.6 pg (25.0-35.0); MCHC 32.3 g/dL (31.0-37.0); MCV 94.9 fL (80.0-100.0); Mean Platelet Volume 6.6; Platelet Count 231 k/uL (150-450); RDW 13.2 % (11.5-15.5); WBC 4.9 k/uL (3.8-10.6)
--- NOTE | 2018-06-29 21:51 | XR ---
EXAMINATION TYPE: XR KUB DATE OF EXAM: 06/29/2018 COMPARISON: 05/24/2016 HISTORY: Abdominal pain TECHNIQUE: 2 views upright FINDINGS: There is no sign of intestinal obstruction or pneumoperitoneum. Fecal pattern is normal. Th ere are clips from cholecystectomy. There is some tubing over the upper abdomen that could be gastros josé miguel tube. Lung bases are clear. IMPRESSION: Nonacute abdomen. No adverse change compared to old exam.
[2018-06-29 21:56] LABS: Albumin 3.9 g/dL (3.5-5.0); Calcium 9.1 mg/dL (8.4-10.2); Potassium 4.2 mmol/L (3.5-5.1); Total Bilirubin 0.6 mg/dL (0.2-1.3); Total Protein 6.4 g/dL (6.3-8.2)
[2018-06-29 22:15] LABS: Basophils # (M) 0.05 k/uL (0-0.2); Eosinophils # (M) 0.15 k/uL (0-0.7); Monocytes # (M) 0.25 k/uL (0-1.0); Neutrophils # (M) 2.16 k/uL (1.3-7.7); Neutrophils % (M) 44 %; Nucleated Red Blood Cells 0 /100 WBC (0-0); Total Cells Counted 100
[2018-06-29] MEDS ORDERED: MAG HYDROX/AL HYDROX/SIMETH 30 ML, HYOSCYAMINE ELIXIR 10 ML, CIMETIDINE HCL 300 MG, LID... PO STA ×4 (23:46)
[2018-06-30 00:24] LABS: Appearance,Urine Clear (Clear); Bilirubin,Urine Negative (Negative); Blood,Urine Negative (Negative); Color,Urine Yellow; Glucose,Urine (UA) Negative (Negative); Ketones,Urine 1+ (Negative); Leukocyte Esterase,Urine Negative (Negative); Nitrite,Urine Negative (Negative); Protein,Urine Trace (Negative); Specific Gravity,Urine 1.032 (1.001-1.035); Urobilinogen,Urine <2.0 mg/dL (<2.0)
[2018-06-30 01:16] VITALS: BP 138/90; PULSE 79; RESP 16
== END 2018-06-30 01:19 | disposition home or self-care (01) ==
LOC: EC 19:28
DX: R10.10 Upper abdominal pain, unspecified (principal); J44.9 Chronic obstructive pulmonary disease, unspecified; I10 Essential (primary) hypertension; M19.90 Unspecified osteoarthritis, unspecified site; G47.33 Obstructive sleep apnea (adult) (pediatric); Z99.89 Dependence on other enabling machines and devices; Z90.49 Acquired absence of other specified parts of digestive tract; Z87.19 Personal history of other diseases of the digestive system; Z96.89 Presence of other specified functional implants; Z79.51 Long term (current) use of inhaled steroids; Z79.1 Long term (current) use of non-steroidal anti-inflammatories (NSAID); Z79.899 Other long term (current) drug therapy
CPT/HCPCS: 36415; 93005; 80053; 83690; 85025; 81003; 74018; 99284; 96374; 96376; J1170 ×2

== ENCOUNTER → 2018-10-29 | Outpatient (CLI) | payer BC ==
--- NOTE | 2018-10-30 10:36 | XR ---
2 view abdomen HISTORY: Gastrojejunal tube placement 2 views the abdomen And 25 cc [id number] injected to the patient's tubing and images obtained. Contrast material is present within tubing with tubing tip in the left upper quadrant. Small bowel lo ops show luminal contrast. Contrast material also present within the stomach. Surgical clips in the r ight upper quadrant. IMPRESSION: Gastrojejunal tube is in appropriate position.
== END ==
LOC: RADXRMAIN 18:01
PROVIDERS: ATTEND Physician Assistant
DX: G89.29 Other chronic pain (principal); R10.13 Epigastric pain
CPT/HCPCS: 74019

== ENCOUNTER → 2019-02-28 | Outpatient (CLI) | payer BC ==
[2019-02-28 09:45] LABS: Basophils # (A) 0.1 k/uL (0-0.2); Basophils % (A) 1 %; Eosinophils # (A) 0.1 k/uL (0-0.7); Eosinophils % (A) 3 %; HCT 37.3 % (39.0-53.0); HGB 12.2 gm/dL (13.0-17.5); Lymphocytes # (A) 1.3 k/uL (1.0-4.8); Lymphocytes % (A) 28 %; MCH 30.4 pg (25.0-35.0); MCHC 32.7 g/dL (31.0-37.0); MCV 92.9 fL (80.0-100.0); Mean Platelet Volume 7.3; Monocytes # (A) 0.3 k/uL (0-1.0); Monocytes % (A) 6 %; Neutrophils # (A) 2.7 k/uL (1.3-7.7); Neutrophils % (A) 58 %; Platelet Count 220 k/uL (150-450); RBC 4.01 m/uL (4.30-5.90); RDW 12.9 % (11.5-15.5); WBC 4.7 k/uL (3.8-10.6)
[2019-02-28 09:57] LABS: Prothrombin Time 10.5 sec (9.0-12.0)
[2019-02-28 10:04] LABS: Appearance,Urine Clear (Clear); Bilirubin,Urine Negative (Negative); Blood,Urine Negative (Negative); Color,Urine Yellow; Glucose,Urine (UA) Negative (Negative); Ketones,Urine Negative (Negative); Leukocyte Esterase,Urine Negative (Negative); Nitrite,Urine Negative (Negative); Protein,Urine Negative (Negative); Specific Gravity,Urine 1.023 (1.001-1.035); Urobilinogen,Urine <2.0 mg/dL (<2.0)
[2019-02-28 17:41] LABS: African American GFR (CKD) 85.9 (60.0-200.0); Albumin/Globulin Ratio 2.11 (1.60-3.17); Anion Gap 4.5 mmol/L (4.00-12.00); BUN/Creat Ratio 18.18 Ratio (12.00-20.00); Calcium 8.6 mg/dL (8.7-10.3); Carbon Dioxide 26.5 mmol/L (21.6-31.8); Globulin 1.9 g/dL (1.6-3.3); Potassium 4.3 mmol/L (3.5-5.5); Total Bilirubin 0.5 mg/dL (0.3-1.2); Total Protein 5.9 g/dL (6.2-8.2)
[2019-02-28 17:46] LABS: Iron Saturation 13.54 (15.00-50.00)
== END | disposition home or self-care (01) ==
LOC: LABWHC1 09:09
PROVIDERS: ATTEND Orthopaedic Surgery
DX: Z01.812 Encounter for preprocedural laboratory examination (principal); D64.9 Anemia, unspecified
CPT/HCPCS: 36415; 80053; 81003; 82607; 82728; 82747; 83540; 83550; 85025; 85610; 87070

== ENCOUNTER 2019-03-13 09:59 | Day surgery (SDC) | payer BC ==
[2019-03-12 09:56] VITALS: BMI 37.3
--- NOTE | 2019-03-13 08:54 | P.GSHP ---
History of Present Illness H&P Date: 03/13/19 CHIEF COMPLAINT: Colon screen HISTORY OF PRESENT ILLNESS: The patient is a 58-year-old male who presents for colon screen. Lower endoscopy was offered for further evaluation and management. PAST MEDICAL HISTORY: Please see list. PAST SURGICAL HISTORY: Please see list. MEDICATIONS: Please see list. ALLERGIES: Please see list. SOCIAL HISTORY: No illicit drug use FAMILY HISTORY: No reports of Crohn disease or ulcerative colitis. REVIEW OF ORGAN SYSTEMS: CONSTITUTIONAL: No reports of fevers or chills. PHYSICAL EXAM: VITAL SIGNS: Stable GENERAL: Well-developed pleasant in no acute distress. HEENT: No scleral icterus. Extraocular movements grossly intact. Moist buccal mucosa. NECK: Supple without lymphadenopathy. CHEST: Unlabored respirations. Equal bilateral excursions. CARDIOVASCULAR: Regular rate and rhythm. Distal 2+ pulses. ABDOMEN: Soft, nontender, nondistended. MUSCULOSKELETAL: No clubbing, cyanosis, or edema. ASSESSMENT: 1. Colon screen. PLAN: 1. Recommend proceeding with a lower endoscopy Past Medical History Past Medical History: Asthma, COPD, Hypertension, Osteoarthritis (OA), Pneumonia, Sleep Apnea/CPAP/BIPAP Additional Past Medical History / Comment(s): Bronchitis, ANA does not use his device, chronic pancreatitis followed at [facility], uses pancreatic enzyme supplements and has peg tube, DDD, chronic back pain, abdominal pain, chronic bilateral lower leg edema, gout bilateral feet in the past, bilateral tinnitis, L hand crush injury with surgeries-index finger amp. History of Any Multi-Drug Resistant Organisms: None Reported Past Surgical History: Cholecystectomy, Orthopedic Surgery Additional Past Surgical History / Comment(s): Feeding tube, pancreatic stent, EGDs/colonoscopies, bronchoscopy, lipoma excision L proximal humerus, left knee arthroscopies, L hand crush injury with surgeries. Past Anesthesia/Blood Transfusion Reactions: No Reported Reaction Additional Past Anesthesia/Blood Transfusion Reaction / Comment(s): has never received blood Smoking Status: Never smoker - Past Family History Father Family Medical History: Congestive Heart Failure (CHF), Diabetes Mellitus Additional Family Medical History / Comment(s): Father at the age of 75 yrs from CHF. Mother Family Medical History: Congestive Heart Failure (CHF), Diabetes Mellitus Additional Family Medical History / Comment(s): Mother at the age of 84 yrs from CHF Medications and Allergies Home Medications Medication Instructions Recorded Confirmed Type Budesonide-Formot 160-4.5 Mcg 2 puff INHALATION RT-BID 12/30/15 03/12/19 History [Symbicort 160-4.5 Mcg Inhaler] Bumetanide [BUMEX] 2 mg PO DAILY 12/30/15 03/12/19 History Cholecalciferol [Vitamin D3 (25 1,000 unit PO DAILY 06/15/17 03/12/19 History Mcg = 1000 Iu)] Lipase/Protease/Amylase [Zenpep Dr 20,000 units PO AC-TID 06/15/17 03/12/19 History 5,000 Unit Capsule] Losartan Potassium [Cozaar] 50 mg PO DAILY 06/15/17 03/12/19 History Multivitamins, Thera [Multivitamin 1 tab PO DAILY 06/15/17 03/12/19 History (formulary)] Vitamin A 8,000 unit PO DAILY 06/15/17 03/12/19 History Doxepin [SINEquan] 50 mg PO HS PRN 03/23/18 03/12/19 History Acetaminophen Tab [Tylenol] 500 mg PO Q6HR PRN tab 03/26/18 03/12/19 Rx Albuterol Inhaler [Ventolin Hfa 1 - 2 puff INHALATION RT-QID PRN 03/29/18 03/12/19 History Inhaler] Diclofenac 3% Topical 1 appful TOPICAL BID 03/29/18 03/12/19 History Ketoconazole 2% Shampoo [Nizoral] 1 applic TOPICAL Q4D 03/29/18 03/12/19 History Meloxicam [Mobic] 15 mg PO DAILY PRN 03/29/18 03/12/19 History Montelukast Sodium [Singulair] 10 mg PO HS 03/29/18 03/12/19 History Ibuprofen [Motrin] 800 mg PO TID PRN 06/29/18 03/12/19 History Balbuca 1 tab PO BID 03/12/19 History Allergies Allergy/AdvReac Type Severity Reaction Status Date / Time No Known Allergies Allergy Verified 03/12/19 09:46
[~2019-03-13 09:59] MED LIST: DEXAMETHASONE SOD PHOSPHATE 10 MG/ML 1 ML VIAL IV ONE; LACTATED RINGERS 1,000 ML IV SCH; LIDOCAINE 1% 20 ML VIAL (10MG/ML) FOR IV START INTRADERMA PRN; MIDAZOLAM 2 MG/2 ML VIAL IV PRN; fentaNYL (PF) 50 MCG/ML 2 ML AMP IV PRN
[2019-03-13 10:33] VITALS: TEMP 98.5
[2019-03-13] MEDS ORDERED: PROPOFOL 10 MG/ML 20 ML VIAL IV ONE (11:21)
--- NOTE | 2019-03-13 11:53 | P.PCN ---
Date of Procedure: 03/13/19 Description of Procedure: PREOPERATIVE DIAGNOSIS: Personal history of colon polyp Colonoscopy screening. POSTOPERATIVE DIAGNOSIS: Personal history of colon polyp Colonoscopy screening. Diverticulosis, scattered. OPERATION: Colonoscopy to the ileocecal valve and appendiceal orifice. SURGEON: Rachel Cuba MD. ANESTHESIA: MAC. INDICATIONS: The patient is a 58-year-old male who presents for colonoscopy screening. Last colonoscopy within 5 years. Benefits and risks were described and informed c onsent was obtained. DESCRIPTION OF PROCEDURE: The patient had undergone Suprep. He had been brought into the operating room and laid in the left lateral decubitus position. After adequate intravenous sedation, the rectum was examined with 2% lidocaine jelly. No external hemorrhoids were encountered. The rectal tone was within normal limits. No lesions were palpated in the rectal vault. An Olympus colonoscope was advanced until the ileocecal valve and appendiceal orifice were clearly viewed. The prep was excellent with clear visualization of the mucosal folds. The scope was removed with visualization of each mucosal fold. Scattered diverticulosis was encountered. No colonic polyps were found. No evidence of focal colitis was found. Retroflexion of the scope demonstrated grade 1 internal hemorrhoids without active bleeding or inflammation. The colon was desufflated. The patient had tolerated the procedure well. Withdrawal time was over 6 minutes. FINDINGS: Aronchick preparation quality scale 1 (1-5) Internal hemorrhoids, grade 1 No external prolapsed hemorrhoids. No arteriovenous malformations. No adenomatous polyps. No focal colitis. Scattered diverticulosis RECOMMENDATIONS: Lower endoscopy in 3 years, 2021 Plan - Discharge Summary Discharge Rx Participant: No New Discharge Prescriptions: No Action RX: Bumetanide [BUMEX] 2 mg PO DAILY RX: Budesonide-Formot 160-4.5 Mcg [Symbicort 160-4.5 Mcg Inhaler] 2 puff INHALATION RT-BID RX: Vitamin A 8,000 unit PO DAILY RX: Multivitamins, Thera [Multivitamin (formulary)] 1 tab PO DAILY RX: Losartan Potassium [Cozaar] 50 mg PO DAILY RX: Cholecalciferol [Vitamin D3 (25 Mcg = 1000 Iu)] 1,000 unit PO DAILY RX: Lipase/Protease/Amylase [Zenpep Dr 5,000 Unit Capsule] 20,000 units PO AC-TID RX: Doxepin [SINEquan] 50 mg PO HS PRN PRN Reason: Insomnia RX: Acetaminophen Tab [Tylenol] 500 mg PO Q6HR PRN tab PRN Reason: Fever and/ or Mild Pain RX: Meloxicam [Mobic] 15 mg PO DAILY PRN PRN Reason: Pain RX: Ketoconazole 2% Shampoo [Nizoral] 1 applic TOPICAL Q4D Diclofenac 3% Topical 1 appful TOPICAL BID RX: Albuterol Inhaler [Ventolin Hfa Inhaler] 1 - 2 puff INHALATION RT-QID PRN PRN Reason: Shortness Of Breath RX: Montelukast Sodium [Singulair] 10 mg PO HS Ibuprofen [Motrin] 800 mg PO TID PRN PRN Reason: Pain Balbuca 1 tab PO BID Discharge Medication List RX: Budesonide-Formot 160-4.5 Mcg [Symbicort 160-4.5 Mcg Inhaler] 2 puff INHALATION RT-BID 12/30/15 [History] RX: Bumetanide [BUMEX] 2 mg PO DAILY 12/30/15 [History] RX: Cholecalciferol [Vitamin D3 (25 Mcg = 1000 Iu)] 1,000 unit PO DAILY 06/15/17 [History] RX: Lipase/Protease/Amylase [Zenpep Dr 5,000 Unit Capsule] 20,000 units PO AC- TID 06/15/17 [History] RX: Losartan Potassium [Cozaar] 50 mg PO DAILY 06/15/17 [History] RX: Multivitamins, Thera [Multivitamin (formulary)] 1 tab PO DAILY 06/15/17 [His tory] RX: Vitamin A 8,000 unit PO DAILY 06/15/17 [History] RX: Doxepin [SINEquan] 50 mg PO HS PRN 03/23/18 [History] RX: Acetaminophen Tab [Tylenol] 500 mg PO Q6HR PRN tab 03/26/18 [Rx] Diclofenac 3% Topical 1 appful TOPICAL BID 03/29/18 [History] RX: Albuterol Inhaler [Ventolin Hfa Inhaler] 1 - 2 puff INHALATION RT-QID PRN 03/29/18 [History] RX: Ketoconazole 2% Shampoo [Nizoral] 1 applic TOPICAL Q4D 03/29/18 [History] RX: Meloxicam [Mobic] 15 mg PO DAILY PRN 03/29/18 [History] RX: Montelukast Sodium [Singulair] 10 mg PO HS 03/29/18 [History] Ibuprofen [Motrin] 800 mg PO TID PRN 06/29/18 [History] Balbuca 1 tab PO BID 03/12/19 [History] Follow up Appointment(s)/Referral(s): Rachel Cuba MD [STAFF PHYSICIAN] - 03/19/19 Patient Instructions/Handouts: *Surgery [facility] - (Anesthesia) Endoscopy Discharge Instructions, Diverticulosis (ED), Diverticulosis Diet (GEN), Colonoscopy (DC) Activity/Diet/Wound Care/Special Instructions: Repeat colonoscopy in 3 years, 2021 Discharge Disposition: HOME SELF-CARE
[2019-03-13 12:04] VITALS: BP 119/62; PULSE 83; RESP 18
== END 2019-03-13 12:20 | disposition home or self-care (01) ==
LOC: ORWHC2ENDO 09:59
PROVIDERS: ATTEND Surgery Plastic and Reconstructive Surgery
DX: Z12.11 Encounter for screening for malignant neoplasm of colon (principal); Z86.010 Personal history of colon polyps; Z87.19 Personal history of other diseases of the digestive system; K57.90 Diverticulosis of intestine, part unspecified, without perforation or abscess without bleeding; Z79.51 Long term (current) use of inhaled steroids; Z79.899 Other long term (current) drug therapy; Z79.1 Long term (current) use of non-steroidal anti-inflammatories (NSAID); J45.909 Unspecified asthma, uncomplicated; G47.33 Obstructive sleep apnea (adult) (pediatric); Z82.49 Family history of ischemic heart disease and other diseases of the circulatory system; Z83.3 Family history of diabetes mellitus; K86.1 Other chronic pancreatitis
CPT/HCPCS: G0105; J2704; 45378

== ENCOUNTER → 2019-05-15 | Outpatient (CLI) | payer BC ==
[2019-05-15 13:07] LABS: Basophils % (A) 1 %; Eosinophils # (A) 0.1 k/uL (0-0.7); Eosinophils % (A) 1 %; HCT 40.8 % (39.0-53.0); HGB 13.3 gm/dL (13.0-17.5); Lymphocytes # (A) 2.3 k/uL (1.0-4.8); Lymphocytes % (A) 36 %; MCH 30.1 pg (25.0-35.0); MCHC 32.5 g/dL (31.0-37.0); MCV 92.5 fL (80.0-100.0); Mean Platelet Volume 6.7; Monocytes # (A) 0.3 k/uL (0-1.0); Monocytes % (A) 5 %; Neutrophils # (A) 3.5 k/uL (1.3-7.7); Neutrophils % (A) 54 %; Platelet Count 281 k/uL (150-450); RBC 4.41 m/uL (4.30-5.90); RDW 13.6 % (11.5-15.5); WBC 6.5 k/uL (3.8-10.6)
[2019-05-15 13:14] LABS: Calcium 9.6 mg/dL (8.4-10.2); Potassium 4.6 mmol/L (3.5-5.1)
== END ==
LOC: LABPAT 12:16
PROVIDERS: ATTEND Surgery Plastic and Reconstructive Surgery
DX: Z01.818 Encounter for other preprocedural examination (principal); Z01.812 Encounter for preprocedural laboratory examination; K31.6 Fistula of stomach and duodenum
CPT/HCPCS: 36415; 80048; 85025; 93005

== ENCOUNTER 2019-05-20 10:49 | Day surgery (SDC) | payer BC ==
[2019-05-14 11:37] VITALS: BMI 36.7
--- NOTE | 2019-05-19 20:08 | P.GSHP ---
History of Present Illness H&P Date: 05/20/19 CHIEF COMPLAINT: History of gastric fistula. HISTORY OF PRESENT ILLNESS: Reza Chanel is a 58-year-old male who actually had been at [facility] for gastrojejunostomy tube. Over 1 month ago. Now he reports chronic drainage. No abdominal pain. Drainage is worse with drinking fluids. He is now seeking resection. PAST MEDICAL HISTORY: Please see list. PAST SURGICAL HISTORY: Please see list. MEDICATIONS: Please see list. ALLERGIES: Please see list. SOCIAL HISTORY: No illicit drug use FAMILY HISTORY: No reports of Crohn disease or ulcerative colitis. REVIEW OF ORGAN SYSTEMS: Additionally reports: CONSTITUTIONAL: No fevers or chills. No recent weight loss. EYES: Denies any trouble with vision. Wears glasses. HEENT: No difficulties with hearing. No nosebleeds. No difficulty swallowing. RESPIRATORY: Denies pneumonia. Denies any troubles with breathing or dyspnea on exertion. Has asthma. Has sleep apnea. CARDIOVASCULAR: Past chest pain, palpitations, or recent heart attacks. GASTROINTESTINAL: Denies fatty food intolerance. Has change in bowel habits and gas bloat. History of polyps GENITOURINARY: Denies any blood in urine or increased urinary frequency. NEUROLOGICAL: Denies any numbness or tingling along the distal extremities. No seizure disorders or headaches. MUSCULOSKELETAL: Has back pain, stiffness or joint arthritis. SKIN: No current skin cancer. No rash. PSYCHIATRIC: Denies current depression or suicidal thoughts. ENDOCRINE: Denies current thyroid disorders. Denies any blood sugar glucose intolerance. HEME/LYMPHATIC: Denies any lumps and bumps around the neck. No recent deep venous thrombosis. ALLERGY/IMMUNOLOGY: No immunoglobulin therapy. No immune deficiencies. BREAST: Denies current breast lumps, pain or nipple discharge. PHYSICAL EXAM: Patient is a 58-year-old male. Abdomen: Draining gastric fistula, subcutaneous fistula of the epigastrium. CONSTITUTIONAL: Well developed and in no acute distress. Vitals reviewed. EYES: Conjuctivae without sclera icterus. Pupils are equally round and reactive to light. Extraocular movements grossly intact. HEAD, EARS, NOSE, THROAT: Moist buccal mucosa. Head is atraumatic, normocephalic. Hears conversational speech. No nasal drainage. NECK: Supple. No JV distention. No thyroidomegaly. RESPIRATORY: Non-labored respirations and equal bilateral excursions. No gross wheezes. CARDIOVASCULAR: Regular rate and rhythm. Extremities without moderate edema. Palpable 2+ radial pulses. LYMPH: No neck lymphadenopathy. No axillary lymphadenopathy. MUSCULOSKELETAL: Nail and fingers with good capillary refill. SKIN: Warm an d well perfused with good skin turgor. NEUROLOGIC: Cranial nerves I through XII grossly intact. Sensation upper and extremities intact. No focal or lateralizing signs. PSYCH: Appropriate affect. Alert and oriented to person, place and time. Displays appropriate insight. ASSESSMENT: 1. History of persistent gastric fistula. PLAN: 1. Robotic resection of gastric fistula was described with excision along the skin. 2. He is higher risk with chronic abdominal pain and peritoneal adhesions. Past Medical History Past Medical History: Asthma, COPD, Hypertension, Osteoarthritis (OA), Pneumonia, Sleep Apnea/CPAP/BIPAP Additional Past Medical History / Comment(s): Bronchitis, ANA does not use his device, [facility] uses pancreatic enzyme supplements and has peg tube, DDD, chronic back pain, abdominal pain, chronic bilateral lower leg edema, gout bilateral feet in the past, bilateral tinnitis, L hand crush injury with surgeries-index finger amp. History of Any Multi-Drug Resistant Organisms: None Reported Past Surgical History: Cholecystectomy, Orthopedic Surgery Additional Past Surgical History / Comment(s): Feeding tube, pancreatic stent, EGDs/colonoscopies, bronchoscopy, lipoma excision L proximal humerus, left knee arthroscopies, L hand crush injury with surgeries. REMOVAL OF PEG TUBE-SITE NOT CLOSING Past Anesthesia/Blood Transfusion Reactions: No Reported Reaction Additional Past Anesthesia/Blood Transfusion Reaction / Comment(s): has never received blood Smoking Status: Never smoker - Past Family History Father Family Medical History: Congestive Heart Failure (CHF), Diabetes Mellitus Additional Family Medical History / Comment(s): Father at the age of 75 yrs from CHF. Mother Family Medical History: Congestive Heart Failure (CHF), Diabetes Mellitus Additional Family Medical History / Comment(s): Mother at the age of 84 yrs from CHF Medications and Allergies Home Medications Medication Instructions Recorded Confirmed Type Budesonide-Formot 160-4.5 Mcg 2 puff INHALATION RT-BID 12/30/15 05/14/19 History [Symbicort 160-4.5 Mcg Inhaler] Bumetanide [BUMEX] 2 mg PO DAILY 12/30/15 05/14/19 History Cholecalciferol [Vitamin D3 (25 1,000 unit PO DAILY 06/15/17 05/14/19 History Mcg = 1000 Iu)] Lipase/Protease/Amylase [Zenpep Dr 20,000 units PO AC-TID 06/15/17 05/14/19 History 5,000 Unit Capsule] Losartan Potassium [Cozaar] 50 mg PO DAILY 06/15/17 05/14/19 History Multivitamins, Thera [Multivitamin 1 tab PO DAILY 06/15/17 05/14/19 History (formulary)] Vitamin A 8,000 unit PO DAILY 06/15/17 05/14/19 History Doxepin [SINEquan] 50 mg PO HS PRN 03/23/18 05/14/19 History Acetaminophen Tab [Tylenol] 500 mg PO Q6HR PRN tab 03/26/18 05/14/19 Rx Albuterol Inhaler [Ventolin Hfa 1 - 2 puff INHALATION RT-QID PRN 03/29/18 05/14/19 History Inhaler] Diclofenac 3% Topical 1 appful TOPICAL BID 03/29/18 05/14/19 History Ketoconazole 2% Shampoo [Nizoral] 1 applic TOPICAL Q4D 03/29/18 05/14/19 History Meloxicam [Mobic] 15 mg PO DAILY PRN 03/29/18 05/14/19 History Montelukast Sodium [Singulair] 10 mg PO HS 03/29/18 05/14/19 History Ibuprofen [Motrin] 800 mg PO TID PRN 06/29/18 05/14/19 History Buprenorphine HCl [Belbuca] 450 mcg BC BID 05/14/19 05/14/19 History Allergies Allergy/AdvReac Type Severity Reaction Status Date / Time No Known Allergies Allergy Verified 05/14/19 11:23 Assessment and Plan (1) Acquired gastric fistula Status: Acute Code(s): K31.6 - FISTULA OF STOMACH AND DUODENUM SNOMED Code(s): 769083061
[~2019-05-20 10:49] MED LIST changes: +ACETAMINOPHEN TAB 500 MG TAB PO STA; +CHLORHEXIDINE GLUCONATE 15 ML CUP MUCOUS MEM ONE; +ENOXAPARIN 40 MG/0.4 ML SYRINGE SQ STA; +GABAPENTIN 300 MG CAP PO STA; +KETOROLAC 30 MG/ML 1 ML VIAL IVP STA; +ONDANSETRON 4 MG/2 ML VIAL IVP ONE; +PANTOPRAZOLE 40 MG/10 ML VIAL IV STA; +SCOPOLAMINE 1.5MG/72HR PATCH TRANSDERM ONE; +TAMSULOSIN 0.4 MG CAP.ER.24H PO STA; -fentaNYL (PF) 50 MCG/ML 2 ML AMP IV PRN
[2019-05-20] MEDS ORDERED: MIDAZOLAM 2 MG/2 ML VIAL IVP ONE (12:15)
[2019-05-20] MEDS ORDERED: PHENYLEPHRINE-0.9% NACL SYG 1 MG/10 ML SYRINGE ONE (12:30)
[2019-05-20] MEDS ORDERED: DEXAMETHASONE SOD PHOSPHATE 4 MG/ML 1 ML VIAL ONE (12:30)
[2019-05-20] MEDS ORDERED: fentaNYL (PF) 50 MCG/ML 2 ML AMP ONE (12:30)
[2019-05-20] MEDS ORDERED: ROPIVACAINE 5 MG/ML 30 ML VIAL ONE (12:30)
[2019-05-20] MEDS ORDERED: ROCURONIUM BROMIDE 10 MG/ML 10 ML VIAL IV ONE (12:30)
[2019-05-20] MEDS ORDERED: GLYCOPYRROLATE 0.2 MG/ML 2 ML VIAL ONE (12:30)
[2019-05-20] MEDS ORDERED: MIDAZOLAM 2 MG/2 ML VIAL ONE (12:30)
[2019-05-20] MEDS ORDERED: LIDOCAINE 1% INJ 10MG/ML (20 ML MDV) ONE (12:30)
[2019-05-20] MEDS ORDERED: ONDANSETRON 4 MG/2 ML VIAL ONE (12:30)
[2019-05-20] MEDS ORDERED: DEXAMETHASONE SOD PHOS (MDV) 100 MG/10 ML VIAL ONE (12:30)
[2019-05-20] MEDS ORDERED: PROPOFOL 10 MG/ML 20 ML VIAL IV ONE (12:30)
[2019-05-20] MEDS ORDERED: SUCCINYLCHOLINE CHLORIDE 100 MG/5 ML SYR IV ONE (12:30)
[2019-05-20] MEDS ORDERED: NEOSTIGMINE 1 MG/ML 10 ML VIAL ONE (12:30)
[2019-05-20] MEDS ORDERED: BUPIVACAINE (PF) 0.25% 30 ML VIAL SQ ONE ×2 (13:10→13:11)
[2019-05-20] MEDS ORDERED: LACTATED RINGERS 1,000 ML IV ONE ×2 (13:32)
[2019-05-20] MEDS: HYDROmorphone 0.5 MG/0.5 ML SYRINGE IVP PRN ×4 (13:55→14:25)
--- NOTE | 2019-05-20 14:07 | P.OP ---
Date of Procedure: 05/20/19 Description of Procedure: SURGEON: SUE CUBA MD PREOPERATIVE DIAGNOSES: 1. Gastrocutaneous fistula, chronic 2. History of gastrojejunostomy feeding tube 3. Congestive heart failure 4. Chronic obstructive lung disease 5. Obstructive sleep apnea 6. Hypertensive heart disease 7. Pancreatic insufficiency 8. Morbid obesity due to excess calories, BMI 36.7 POSTOPERATIVE DIAGNOSES: 1. Gastrocutaneous fistula, chronic 2. History of gastrojejunostomy feeding tube 3. Congestive heart failure 4. Chronic obstructive lung disease 5. Obstructive sleep apnea 6. Hypertensive heart disease 7. Pancreatic insufficiency 8. Morbid obesity due to excess calories, BMI 36.7 OPERATION: 1. Robotic assisted daVinci Xi laparoscopic closure of gastrocutaneous fistula 2. Excision of gastrocutaneous fistula 5 x 3 cm, epigastrium 3. Application of PREVENA 13-cm wound vac ANESTHESIA: Gen. local anesthetic ESTIMATED BLOOD LOSS: 20 mL SPECIMENS REMOVED: Gastrocutaneous fistula COMPLICATIONS: None. FINDINGS: 1. Gastric cutaneous fistula resected along the abdominal wall using green staple loads, 45 mm 2. Fistula resected to the fascia and passed off for specimen INDICATIONS: The patient is a 59-year-old male with history of gastrojejunostomy feeding tube with subsequent complications. He had his feeding tube removed over a month ago however reports persistent drainage along the skin from the gastrocutaneous fistula. Surgical excision was sought. Benefits and risks of procedure including bleeding, infection were described. Informed consent was obtained DESCRIPTION: The patient was brought into the operating room theater. Preoperatively he had received Lovenox subcutaneously for DVT prophylaxis. Additionally he had Peridex oral solution as an oral decontaminant. After general induction, the abdomen was prepped and draped in standard sterile fashion. An Ioban draping was placed along the abdomen. A robotic da Flaca Xi system was prepped and primed. At 15 cm from the xiphoid, proposed port sites were marked with indelible marker along the upper abdomen along the left midclavicular line, left anterior axillary line and right upper quadrant. Each port were placed 10 to 15 cm from each other. The robotic stapler port was prepared for the left upper quadrant. A 5 mm 0 degrees laparoscopic trocar entry was performed along the left upper quadrant. The abdomen was insufflated to 15 mmHg pressure he tolerated well. Diagnostic laparoscopy demonstrated no injury to bowel, viscera, or mesentery. The liver surface was unremarkable. A gastrocutaneous fistula was identified with the anterior surface of the distal stomach tethered to the abdominal wall. A 12 mm port was placed along the left upper abdominal wall after exchanging the 5 mm port. Two 8 mm ports were placed, one along the epigastrium and another along the right upper quadrant. Please note that the ports were placed at least 20 cm away from the target anatomy. Care was taken to check each robotic arms were safely away from collision with the bed or the patient. The patient was repositioned in reverse Trendelenburg position at 20-degrees after lowering the bed. The robot was docked along the left side of the patient. Using a grasper for arm 4, a vessel sealer for arm 3, including grasper for arm 1, the robotic system was docked and primed as described. Instruments were interchanged by the orthotics prosthetics assistant for stapler loads. The camera was placed at 30-degrees down. I had sat at the console. Adhesions about the stomach were removed using vessel sealer. Next, using robotic stapler green loads 45 mm x 1, the fistula was resected from the abdominal wall. Hemostasis was excellent. The robot was undocked. I then rescrubbed into case. The trocar sites were closed using subcuticular interrupted suture of 4-0 Monocryl. Next, an elliptical incision 5 x 3 cm was made along the gastrocutaneous fistula of the skin to the fascia. The fistulous circumferentially dissected using electro-Bovie cautery. Hemostasis was checked. The wound was irrigated with dilute hydrogen peroxide. The incision was closed using 0 Vicryl for the deep subcutaneous tissue and fascia. Skin alfred were placed at the gastrocutaneous skin excision site. PREVENA 13-cm wound VAC was placed over the gastrocutaneous fistula site. Dermabond was applied to the skin once the skin had been cleansed. At the end of the procedure, needle, sponge, and instrument count was verified correct by the rn medical surgical. The patient was taken to the postanesthesia care unit in stable condition. He had tolerated the procedure well. Intraoperative films and findings were reviewed with the patient's family. Plan - Discharge Summary Discharge Rx Participant: No New Discharge Prescriptions: No Action Bumetanide [BUMEX] 2 mg PO DAILY Budesonide-Formot 160-4.5 Mcg [Symbicort 160-4.5 Mcg Inhaler] 2 puff INHALATION RT-BID Vitamin A 8,000 unit PO DAILY Multivitamins, Thera [Multivitamin (formulary)] 1 tab PO DAILY Losartan Potassium [Cozaar] 50 mg PO HS Cholecalciferol [Vitamin D3 (25 Mcg = 1000 Iu)] 1,000 unit PO DAILY Lipase/Protease/Amylase [Kathyp Dr 5,000 Unit Capsule] 20,000 units PO AC-TID Doxepin [SINEquan] 50 mg PO HS PRN PRN Reason: Insomnia Acetaminophen Tab [Tylenol] 500 mg PO Q6HR PRN tab PRN Reason: Fever and/ or Mild Pain Meloxicam [Mobic] 15 mg PO DAILY PRN PRN Reason: Pain Ketoconazole 2% Shampoo [Nizoral] 1 applic TOPICAL Q4D Diclofenac 3% Topical 1 appful TOPICAL BID Albuterol Inhaler [Ventolin Hfa Inhaler] 1 - 2 puff INHALATION RT-QID PRN PRN Reason: Shortness Of Breath Montelukast Sodium [Singulair] 10 mg PO HS Ibuprofen [Motrin] 800 mg PO TID PRN PRN Reason: Pain Buprenorphine HCl [Belbuca] 450 mcg BC BID Discharge Medication List Budesonide-Formot 160-4.5 Mcg [Symbicort 160-4.5 Mcg Inhaler] 2 puff INHALATION RT-BID 12/30/15 [History] Bumetanide [BUMEX] 2 mg PO DAILY 12/30/15 [History] Cholecalciferol [Vitamin D3 (25 Mcg = 1000 Iu)] 1,000 unit PO DAILY 06/15/17 [History] Lipase/Protease/Amylase [Kathyp 5,000 Unit Capsule] 20,000 units PO AC-TID 06/15/17 [History] Losartan Potassium [Cozaar] 50 mg PO HS 06/15/17 [History] Multivitamins, Thera [Multivitamin (formulary)] 1 tab PO DAILY 06/15/17 [History] Vitamin A 8,000 unit PO DAILY 06/15/17 [History] Doxepin [SINEquan] 50 mg PO HS PRN 03/23/18 [History] Acetaminophen Tab [Tylenol] 500 mg PO Q6HR PRN tab 03/26/18 [Rx] Albuterol Inhaler [Ventolin Hfa Inhaler] 1 - 2 puff INHALATION RT-QID PRN 03/29/18 [History] Diclofenac 3% Topical 1 appful TOPICAL BID 03/29/18 [History] Ketoconazole 2% Shampoo [Nizoral] 1 applic TOPICAL Q4D 03/29/18 [History] Meloxicam [Mobic] 15 mg PO DAILY PRN 03/29/18 [History] Montelukast Sodium [Singulair] 10 mg PO HS 03/29/18 [History] Ibuprofen [Motrin] 800 mg PO TID PRN 06/29/18 [History] Buprenorphine HCl [Belbuca] 450 mcg BC BID 05/14/19 [History] Follow up Appointment(s)/Referral(s): Sue Cuba MD [STAFF PHYSICIAN] - 05/28/19 Patient Instructions/Handouts: Excision of Skin Lesion (DC), Negative Pressure Wound Therapy (DC) Activity/Diet/Wound Care/Special Instructions: DO NOT GET DRESSING WET OR BATTERY PACK. Otherwise sponge around skin. No lifting over 10 pounds 1 week, until May 28. MAY APPLY ICE PACK TO SKIN FOR SWELLING. Use home medications Mobic, Tylenol and [place] for pain. Take tylenol and Mobic scheduled for next 24 to 48 hours. Discharge Disposition: HOME SELF-CARE
[2019-05-20 14:24] VITALS: TEMP 97.9
[2019-05-20 14:36] VITALS: RESP 16
--- NOTE | 2019-05-20 15:23 | P.ANPRN ---
Procedure Note - Anesthesia - Nerve Block Performed Bilateral Transversus Abdominis Single Time Out Performed: Yes Date of Procedure: 05/20/19 Procedure Start Time: 12:16 Procedure Stop Time: 12:23 Location of Patient: PreOp Indication: Acute Post-Operative Pain, Requested by Surgeon Sedation Type: Sedate with meaningful contact maintained Preparation: Sterile Prep Position: Supine Needle Types: Pajunk Needle Gauge: 21 Ultrasound used to visualize needle placement: Yes Ultrasound used to observe medication spread: Yes Blood Aspirated: No Pain Paresthesia on Injection Noted: No Resistance on Injection: Normal Image Stored and Saved: Yes Events: Uneventful and Well Tolerated (ropi .5% 20cc each side with dexamethasone 4mg)
[2019-05-20 16:10] VITALS: BP 116/74; PULSE 81
== END 2019-05-20 16:58 | disposition home or self-care (01) ==
LOC: OR 10:49 → EDSTATUS 14:20 → OR 16:58
PROVIDERS: ATTEND Surgery Plastic and Reconstructive Surgery
DX: K31.6 Fistula of stomach and duodenum (principal); K66.0 Peritoneal adhesions (postprocedural) (postinfection); J44.9 Chronic obstructive pulmonary disease, unspecified; K86.1 Other chronic pancreatitis; I11.0 Hypertensive heart disease with heart failure; I50.9 Heart failure, unspecified; M19.90 Unspecified osteoarthritis, unspecified site; Z87.01 Personal history of pneumonia (recurrent); G47.33 Obstructive sleep apnea (adult) (pediatric); E66.01 Morbid (severe) obesity due to excess calories; Z68.36 Body mass index [BMI] 36.0-36.9, adult; G89.29 Other chronic pain; M10.9 Gout, unspecified; R60.0 Localized edema; Z90.49 Acquired absence of other specified parts of digestive tract; Z79.51 Long term (current) use of inhaled steroids; Z79.899 Other long term (current) drug therapy
CPT/HCPCS: 43999; 49320; S2900; 64488; 88304

== ENCOUNTER → 2020-03-16 | Outpatient (CLI) | payer BC ==
[~2020-03-16] MED LIST changes: -ACETAMINOPHEN TAB 500 MG TAB PO STA; -CHLORHEXIDINE GLUCONATE 15 ML CUP MUCOUS MEM ONE; -DEXAMETHASONE SOD PHOSPHATE 10 MG/ML 1 ML VIAL IV ONE; +DOBUTamine DRIP for NUC MED 500 MG in DEXTROSE/WATER 1 250ML.BAG IV ONE; -ENOXAPARIN 40 MG/0.4 ML SYRINGE SQ STA; -GABAPENTIN 300 MG CAP PO STA; -KETOROLAC 30 MG/ML 1 ML VIAL IVP STA; -LACTATED RINGERS 1,000 ML IV SCH; -LIDOCAINE 1% 20 ML VIAL (10MG/ML) FOR IV START INTRADERMA PRN; -MIDAZOLAM 2 MG/2 ML VIAL IV PRN; -ONDANSETRON 4 MG/2 ML VIAL IVP ONE; -PANTOPRAZOLE 40 MG/10 ML VIAL IV STA; -SCOPOLAMINE 1.5MG/72HR PATCH TRANSDERM ONE; -TAMSULOSIN 0.4 MG CAP.ER.24H PO STA
--- NOTE | 2020-03-16 14:33 | EST ---
EXERCISE STRESS DATE OF SERVICE: March 16, 2020. REFERRING PHYSICIAN: Dr. Allen. INDICATION: Chest pain. AGE: 59 SEX: M HT: 70" WT: 257 lbs PROTOCOL: Dobutamine stress echo STAGE: 3 DURATION OF EXERCISE: HEART RATE REST: 76 BLOOD PRESSURE REST: 133/81 MAXIMUM HEART RATE ACHIEVED: 141 MAXIMUM BLOOD PRESSURE: 178/72 85% MPHR: 138 100% MPHR: 162 METS: STRESS DATA: Heart rate 76, pressure is pressure is 133/81 mmHg. Baseline EKG showed sinus mechanism. Dobutamine infusion at a dose of 10 mcg/kg per minute was initiated and increased to 30 mcg/kg per minute per protocol. Max heart rate was 141 which is about 87% of maximum predicted heart rate. Maximum blood pressure was 178/72 mmHg. Clinically, the patient did not have any symptoms. The EKG did not show any significant ST or T-wave abnormalities concerning for ischemia. ECHOCARDIOGRAM IMAGES: On echocardiogram images from parasternal long axis view, parasternal short axis view, apical 4 chamber and apical 2 chambers were obtained as the baseline images, at the peak of the heart rate as well as on recovery and the echocardiogram images showed good augmentation in the left ventricular systolic function. CONCLUSION: 1. Normal EKG in response to dobutamine. 2. Normal echocardiogram in response to dobutamine. 3. Essentially normal dobutamine stress test. MMODL / IJN: [id number] /
== END | disposition home or self-care (01) ==
LOC: RADNMMAIN 09:13
PROVIDERS: ATTEND Family Medicine
DX: R94.31 Abnormal electrocardiogram [ECG] [EKG] (principal)
CPT/HCPCS: 93351; J1250

== ENCOUNTER → 2020-07-16 | Outpatient (CLI) | payer BC ==
--- NOTE | 2020-07-17 07:48 | US ---
EXAMINATION TYPE: US kidneys/renal and bladder DATE OF EXAM: 07/16/2020 COMPARISON: NONE CLINICAL HISTORY: N20.0 Kidney stone. Hx of kidney stones. EXAM MEASUREMENTS: Right Kidney: 11.4 x 5.3 x 4.5 cm Left Kidney: 11.5 x 5.1 x 4.6 cm Right Kidney: No hydronephrosis or masses seen Left Kidney: Mild amount of hydronephrosis. Bladder: Anechoic Bilateral Jets seen: No No nephrolithiasis is seen. No masses are identified. The urinary bladder is anechoic. IMPRESSION: Mild left-sided hydronephrosis.
== END | disposition home or self-care (01) ==
LOC: RADUSWWP 15:32
PROVIDERS: ATTEND Family Medicine
DX: N13.30 Unspecified hydronephrosis (principal)
CPT/HCPCS: 76770

== ENCOUNTER → 2020-07-31 | Outpatient (CLI) | payer BC ==
--- NOTE | 2020-07-31 08:39 | CT ---
EXAMINATION TYPE: CT abdomen pelvis wo con DATE OF EXAM: 07/31/2020 COMPARISON: 03/29/2018 HISTORY: Abd pain CT DLP: 1277.3 mGycm Examination of the solid and hollow viscera is limited given the lack of contrast. FINDINGS: LUNG BASES: No evidence for nodule. No evidence for infiltrate. LIVER/GB: The gallbladder is unremarkable. No space-occupying hepatic lesion. PANCREAS: No pancreatic mass identified. No inflammatory process seen. SPLEEN: No evidence for splenomegaly. No intrasplenic lesions seen. ADRENALS: No adrenal nodules identified. No evidence for thickening. KIDNEYS: There is a 5.9 mm calculus in the region of the left UPJ resulting in mild to moderate left- sided hydronephrosis. Mild left-sided renal edema and perinephric stranding. No additional calculi se en. Hypoattenuating renal lesions are likely reflective of cysts. No definitive solid lesions identif ied. BOWEL: Appendix has a normal appearance. No evidence of bowel obstruction. No inflammatory process. Lymph nodes: No evidence for adenopathy greater than 1 cm. Abdominal aorta: Atheromatous changes seen. No evidence for aneurysm. Genital organs: No significant abnormality. Other: No significant abnormality. IMPRESSION: There is a 5.9 mm calculus in the region of the left UPJ resulting in mild to moderate left-sided hyd ronephrosis. Mild left-sided renal edema and perinephric stranding.
== END | disposition home or self-care (01) ==
LOC: RADCTMAIN 06:18
PROVIDERS: ATTEND Family Medicine
DX: N13.2 Hydronephrosis with renal and ureteral calculous obstruction (principal)
CPT/HCPCS: 74176

== ENCOUNTER → 2020-08-13 | Outpatient (CLI) | payer BC ==
--- NOTE | 2020-08-13 12:38 | XR ---
KUB HISTORY: Left ureter calculus Frontal KUB and [address] scan dated 07/31/2020 Bone mineralization is maintained. No evident bowel obstruction or pneumoperitoneum. Questionable aurelio cific density superimposed over the left L3 transverse process on limited views measuring 6 to 7 mm. Surgical clips present in the right upper quadrant. IMPRESSION: Difficult to exclude left-sided ureteral calculus.
== END ==
LOC: RADXRMAIN 09:07
PROVIDERS: ATTEND Urology
DX: N20.1 Calculus of ureter (principal)
CPT/HCPCS: 74018

== ENCOUNTER → 2020-08-17 | Outpatient (CLI) | payer BC ==
[2020-08-17 08:55] LABS: Basophils % (A) 1 %; Eosinophils # (A) 0.1 k/uL (0-0.7); Eosinophils % (A) 3 %; HGB 12.6 gm/dL (13.0-17.5); Lymphocytes # (A) 1.2 k/uL (1.0-4.8); Lymphocytes % (A) 31 %; MCHC 33.1 g/dL (31.0-37.0); MCV 96.6 fL (80.0-100.0); Mean Platelet Volume 7.9; Monocytes # (A) 0.3 k/uL (0-1.0); Monocytes % (A) 8 %; Neutrophils # (A) 2.2 k/uL (1.3-7.7); Neutrophils % (A) 56 %; Platelet Count 183 k/uL (150-450); RBC 3.93 m/uL (4.30-5.90); RDW 13.5 % (11.5-15.5); WBC 3.9 k/uL (3.8-10.6)
[2020-08-17 09:08] LABS: Appearance,Urine Clear (Clear); Bilirubin,Urine Negative (Negative); Blood,Urine Negative (Negative); Color,Urine Yellow; Glucose,Urine (UA) Negative (Negative); Ketones,Urine Negative (Negative); Leukocyte Esterase,Urine Negative (Negative); Nitrite,Urine Negative (Negative); PH, Urine 6.5 (5.0-8.0); Protein,Urine Negative (Negative); Specific Gravity,Urine 1.018 (1.001-1.035); Urobilinogen,Urine <2.0 mg/dL (<2.0)
[2020-08-17 09:12] LABS: Potassium 4.5 mmol/L (3.5-5.1)
== END | disposition home or self-care (01) ==
LOC: LABPAT 07:52
PROVIDERS: ATTEND Urology
DX: Z01.818 Encounter for other preprocedural examination (principal); N20.1 Calculus of ureter; R31.29 Other microscopic hematuria
CPT/HCPCS: 80051; 81003; 82565; 84520; 85025

== ENCOUNTER 2020-08-24 07:25 | Day surgery (SDC) | payer BC ==
[2020-08-20 11:09] VITALS: BMI 37.3
--- NOTE | 2020-08-22 11:21 | P.GSHP ---
History of Present Illness H&P Date: 08/22/20 60 yo male with a symptomatic 6 mm left upj stone. Treatment options were discussed. He comes for eswl left. - Constitutional Constitutional: Denies chills, Denies fever - EENT Eyes: denies blurred vision, denies pain Ears, nose, mouth and throat: Denies headache, Denies sore throat - Cardiovascular Cardiovascular: Denies chest pain, Denies shortness of breath - Respiratory Respiratory: Denies cough, Denies 7 - Gastrointestinal Gastrointestinal: Denies abdominal pain, Denies diarrhea, Denies nausea, Denies vomiting - Genitourinary (Female) Genitourinary: Denies dysuria, Denies hematuria - Genitourinary (Male) Genitourinary: Denies dysuria, Denies hematuria - Musculoskeletal Musculoskeletal: Denies myalgias - Integumentary Integumentary: Denies pruritus, Denies rash - Neurological Neurological: Denies numbness, Denies weakness - Psychiatric Psychiatric: Denies anxiety, Denies depression - Endocrine Endocrine: Denies fatigue, Denies weight change Past Medical History Past Medical History: Asthma, COPD, Hypertension, Osteoarthritis (OA), Pneumonia, Sleep Apnea/CPAP/BIPAP Additional Past Medical History / Comment(s): Bronchitis, ANA does not use his device, chronic pancreatitis , uses pancreatic enzyme supplements , chronic back pain, abdominal pain, chronic bilateral lower leg edema, gout bilateral feet in the past, bilateral tinnitis, L hand crush injury with surgeries-index finger amp.KIDNEY STONES History of Any Multi-Drug Resistant Organisms: None Reported Past Surgical History: Cholecystectomy, Joint Replacement, Orthopedic Surgery Additional Past Surgical History / Comment(s): Feeding tube, pancreatic stent, EGDs/colonoscopies, bronchoscopy, lipoma excision L proximal humerus, left knee arthroscopies, L hand crush injury with surgeries. REMOVAL OF PEG TUBE , TOTAL RIGHT KNEE , TOTAL LEFT KNEE Past Anesthesia/Blood Transfusion Reactions: No Reported Reaction Additional Past Anesthesia/Blood Transfusion Reaction / Comment(s): has never received blood Smoking Status: Never smoker - Past Family History Father Family Medical History: Congestive Heart Failure (CHF), Diabetes Mellitus Additional Family Medical History / Comment(s): Father at the age of 75 yrs from CHF. Mother Family Medical History: Congestive Heart Failure (CHF), Diabetes Mellitus Additional Family Medical History / Comment(s): Mother at the age of 84 yrs from CHF Medications and Allergies Home Medications Medication Instructions Recorded Confirmed Type Budesonide-Formot 160-4.5 Mcg 2 puff INHALATION RT-BID 12/30/15 08/20/20 History [Symbicort 160-4.5 Mcg Inhaler] Bumetanide [BUMEX] 2 mg PO DAILY 12/30/15 08/20/20 History Cholecalciferol [Vitamin D3 (25 1,000 unit PO DAILY 06/15/17 08/20/20 History Mcg = 1000 Iu)] Losartan Potassium [Cozaar] 50 mg PO HS 06/15/17 08/20/20 History Multivitamins, Thera [Multivitamin 1 tab PO DAILY 06/15/17 08/20/20 History (formulary)] Vitamin A 8,000 unit PO DAILY 06/15/17 08/20/20 History Doxepin [SINEquan] 50 mg PO HS PRN 03/23/18 08/20/20 History Acetaminophen Tab [Tylenol] 500 mg PO Q6HR PRN tab 03/26/18 08/20/20 Rx Albuterol Inhaler (Mhu) [Ventolin 1 - 2 puff INHALATION RT-QID PRN 03/29/18 08/20/20 History Hfa Inhaler (Mhu)] Diclofenac 3% Topical 1 appful TOPICAL BID PRN 03/29/18 08/20/20 History Ketoconazole 2% Shampoo [Nizoral] 1 applic TOPICAL Q4D 03/29/18 08/20/20 History Meloxicam [Mobic] 15 mg PO DAILY PRN 03/29/18 08/20/20 History Montelukast Sodium [Singulair] 10 mg PO HS 03/29/18 08/20/20 History Ibuprofen [Motrin] 800 mg PO TID PRN 06/29/18 08/20/20 History Buprenorphine HCl [Belbuca] 450 mcg BC BID 05/14/19 08/20/20 History Allergies Allergy/AdvReac Type Severity Reaction Status Date / Time No Known Allergies Allergy Verified 08/20/20 10:39 Surgical - Exam - General well developed, well nourished - Eyes PERRL - Neck trachea midline - Respiratory normal expansion, normal respiratory effort - Cardiovascular Rhythm: regular - Abdomen Abdomen: soft, non tender - Integumentary no rash, no growths - Neurologic normal coordination, normal sensation - Musculoskeletal normal gait, normal posture - Psychiatric oriented to time, oriented to person, oriented to place, speech is normal, memory intact
[~2020-08-24 07:25] MED LIST changes: -DOBUTamine DRIP for NUC MED 500 MG in DEXTROSE/WATER 1 250ML.BAG IV ONE; +LACTATED RINGERS 1,000 ML IV SCH
--- NOTE | 2020-08-24 07:53 | XR ---
EXAMINATION TYPE: XR KUB DATE OF EXAM: 08/24/2020 Comparison: 08/13/2020 Clinical History: 60-year-old male preop left-sided lithotripsy, OR SCHEDULED 08/24/20 Findings: 6 mm calcification left paramedian mid abdomen. Cholecystectomy clips. Nonobstructive bowel gas patte rn. Mild stool burden. Impression: 6 mm calcification redemonstrated in the region of the upper left ureter.
[2020-08-24 07:55] VITALS: TEMP 97.6
[2020-08-24] MEDS ORDERED: MIDAZOLAM 2 MG/2 ML VIAL ONE (08:26)
[2020-08-24] MEDS ORDERED: fentaNYL (PF) 50 MCG/ML 2 ML AMP ONE (08:26)
[2020-08-24] MEDS ORDERED: LIDOCAINE 1% INJ 10MG/ML (20 ML MDV) ONE (08:26)
[2020-08-24] MEDS ORDERED: KETAMINE 10 MG/ML 20 ML VIAL ONE (08:26)
[2020-08-24 09:12] VITALS: RESP 16
--- NOTE | 2020-08-24 09:12 | P.OP ---
Date of Procedure: 08/24/20 Preoperative Diagnosis: Left UPJ calculus Postoperative Diagnosis: Same Procedure(s) Performed: Left extracorporal shockwave lithotripsy (ESWL) Anesthesia: MAC Surgeon: Jv Espinoza Estimated Blood Loss (ml): 0 IV fluids (ml): 400 Pathology: none sent Condition: stable Disposition: PACU Indications for Procedure: The patient is a 60-year-old white male with a 6 mm left UPJ calculus. He is symptomatic and comes for ESWL. Operative Findings: The calculus appears to fragment well. Description of Procedure: The patient was taken to the operating room and placed on the Dornier S&N Airoflo Delta II lithotripter in the supine position. The calculus was seen on biplanar fluoroscopy. Lasix 10 mg was given intravenously. Once the patient was properly positioned and sedated, lithotripsy was performed. The energy level was gradually increased per protocol, to an energy level of 5. After 200 shocks were administered, a 2 minute pause was instituted per protocol. After approximately 850 shocks were administered, the calculus showed evidence of fragmentation and moved such that it was then necessary to treat from above the table. A total of 2000 shocks were given at a rate of 80 shocks per minute. The calculus was no longer visible at that time. Fluoroscopy was utilized at a minimum to ensure proper positioning and determine the treatment status. The patient tolerated the procedure well was taken to the recovery room in stable condition. Instructions were given to strain the urine, and the patient will follow-up within one week.
[2020-08-24 09:28] VITALS: BP 140/98; PULSE 80
== END 2020-08-24 09:55 | disposition home or self-care (01) ==
LOC: ORWHC2ENDO 07:25
PROVIDERS: ATTEND Urology
DX: N20.1 Calculus of ureter (principal); J44.9 Chronic obstructive pulmonary disease, unspecified; I10 Essential (primary) hypertension; M19.90 Unspecified osteoarthritis, unspecified site; Z87.01 Personal history of pneumonia (recurrent); G47.33 Obstructive sleep apnea (adult) (pediatric); Z91.19 Patient's noncompliance with other medical treatment and regimen; K86.1 Other chronic pancreatitis; G89.29 Other chronic pain; M54.9 Dorsalgia, unspecified; M10.9 Gout, unspecified; H93.13 Tinnitus, bilateral; Z98.890 Other specified postprocedural states; Z90.49 Acquired absence of other specified parts of digestive tract; Z96.653 Presence of artificial knee joint, bilateral; Z83.3 Family history of diabetes mellitus; Z82.49 Family history of ischemic heart disease and other diseases of the circulatory system; Z79.51 Long term (current) use of inhaled steroids; Z79.899 Other long term (current) drug therapy
CPT/HCPCS: 74018; 50590; J2250; J2001; J3010

== ENCOUNTER → 2020-08-31 | Outpatient (CLI) | payer BC ==
--- NOTE | 2020-08-31 11:36 | XR ---
KUB HISTORY: Ureteral calculus Frontal KUB and 2 images correlated prior exam 08/24/2020, CT chest 07/31/2020 Previously described calcification in the left paraspinal location is not identified with certainty. Surgical clips present right upper quadrant. No other significant interval change is evident. IMPRESSION: Calcification in the left paraspinal location is no longer seen with certainty.
== END | disposition home or self-care (01) ==
LOC: RADXRMAIN 07:01
PROVIDERS: ATTEND Urology
DX: N28.89 Other specified disorders of kidney and ureter (principal)
CPT/HCPCS: 74018

== ENCOUNTER → 2020-11-03 | Outpatient (CLI) | payer BC ==
--- NOTE | 2020-11-04 08:23 | CT ---
EXAMINATION TYPE: CT abdomen pelvis wo con DATE OF EXAM: 11/03/2020 COMPARISON: 07/31/2020, 03/23/2018 HISTORY: 60-year-old male N20.2, Calculus of kidney and ureter. Pt c/o pain LT side. CT DLP: 1339.50 mGycm. Automated exposure control for dose reduction was used. TECHNIQUE: Contiguous axial scanning of the abdomen and pelvis without IV contrast. Coronal and sagit myles reconstructions performed. FINDINGS: Heart normal size without pericardial effusion. Lung bases clear without pleural effusion. Tiny hiatal hernia. Tiny calcified granuloma central left hepatic dome. Cholecystectomy clips. Tiny diverticulum of the s econd portion of the duodenum measuring 1.3 cm. Otherwise, noncontrast appearance of the liver, adrenal glands and pancreas show no gross abnormal mo bility. Spleen is borderline in size at 13.8 cm with a hilar splenule. Kidneys show no nephrolithiasis or hydronephrosis. No suspicious calcification is seen along the cour se of either ureter. There are cortical lesions in both kidneys measuring 1.5 cm right upper pole and 1.0 cm right lower p ole. 2.7 cm and the left lower pole suggestive of a cyst. The first 2 lesions are nonspecific. The up per pole lesion is unchanged from 03/23/2018 suggesting a cyst. The lower pole lesion is minimally la rger from 9 mm. It was even smaller back in 2018. Additional one-year follow-up is recommended. Surgical material along the epigastric anterior abdominal wall is unchanged, suspect from prior PEG t ube. No dilated small bowel, free fluid, or free air. No mesenteric or retroperitoneal lymphadenopathy. Normal appendix. Mild stool burden. Mild sigmoid diverticulosis. No pericolonic inflammatory change. The bladder is underdistended. Prostate gland is small. No abnormal fluid collection or pelvic lympha denopathy seen. Bones: Mild degenerative change of the hips. Some heterotopic is ossification posterior to the right SI joint probably secondary to remote trauma. Nonspecific sclerotic focus right iliac wing probably b enign fibro-osseous lesion, stable from 2018. Facet arthropathy lower lumbar spine. IMPRESSION: 1. No nephrolithiasis or hydronephrosis. 2. A few renal cortical cysts. A 1.0 cm cortical lesion at the lower pole right kidney is nonspecific , a millimeter larger from 3 months ago, and larger still from 2018. One-year follow-up CT recommende d to reassess. 3. Mild diverticulosis of the sigmoid colon. No evidence for acute diverticulitis. 4. Tiny hiatal hernia.
== END | disposition home or self-care (01) ==
LOC: RADCTMAIN 18:45
PROVIDERS: ATTEND Family Medicine
DX: K44.9 Diaphragmatic hernia without obstruction or gangrene (principal); N28.1 Cyst of kidney, acquired; K57.30 Diverticulosis of large intestine without perforation or abscess without bleeding; N28.9 Disorder of kidney and ureter, unspecified
CPT/HCPCS: 74176

== ENCOUNTER → 2020-12-02 | Outpatient (CLI) | payer BC ==
--- NOTE | 2020-12-03 10:41 | MR ---
EXAMINATION TYPE: MR thoracic spine wo/w con DATE OF EXAM: 12/02/2020 COMPARISON: None HISTORY: Low back pain, abnormal X-RAY. CONTRAST: Performed utilizing 12 mL intravenous Gadavist gadolinium contrast. TECHNIQUE: Multiplanar, multiecho imaging on a 3.0 Irina magnet is performed through the thoracic spi ne. There appears to be some artifact within the proximal thoracic spinal cord. In the axial plane suspic ious abnormality is not identified. Vertebral body alignment is normal. Vertebral body heights are preserved. Disc heights are preserved. Disc desiccation appears to be present diffusely throughout the thoracic spine T5-6: Right paracentral disc herniation is present with moderate anterior thecal sac compression. No cord contact is evident. As extends posterior to the T 5 level. Correlate for right C5 radicular symp toms. Series 701 image 6 There is some right paracentral moderate anterior thecal sac compression in the upper thoracic spine at T2-3 and T3-4. This comes in close proximity of the spinal cord. Some cord flattening is present a t T2-3 and a lesser degree at T3-4. Cord contact however is not defined. No spinal canal stenosis is evident. IMPRESSIONS: 1. Right paracentral disc herniation T5-T6 may have right T5 exiting nerve root impingement. 2. Right paracentral disc bulging T2-3 and T3-4 with moderate thecal sac compression. Some cord defor mity is noted at these levels.
== END | disposition home or self-care (01) ==
LOC: RADMRIMAIN 18:34
PROVIDERS: ATTEND Nurse Practitioner Adult Health
DX: M51.24 Other intervertebral disc displacement, thoracic region (principal)
CPT/HCPCS: 72157; A9585

== ENCOUNTER → 2022-04-22 | Outpatient (CLI) | payer BC ==
--- NOTE | 2022-04-23 06:45 | MR ---
EXAMINATION TYPE: MR abdomen wo/w con DATE OF EXAM: 04/22/2022 COMPARISON: 10/12/2012 HISTORY: Pancreatitis CONTRAST: Standard multiplanar, multisequence MRI departmental protocol images were obtained without contrast a nd with 13 mL intravenous Gadavist gadolinium contrast. The liver has normal size and contour. The bile ducts are not dilated. Spleen is intact. No evidence of pancreatic mass. The pancreatic duct is not dilated. The stomach is intact. No evidence of pancrea tic edema. There is no evidence of ascites. Kidneys have fairly normal size. There are multiple bilateral renal cortical cysts up to 3 cm. No hydronephrosis. No retroperitoneal adenopathy. No adrenal mass. No sign of a bowel obstruction. There is normal enhancement of the portal venous system. Contrast images kyle w no pathologic enhancement of the pancreas. Gallbladder is not seen. IMPRESSION: No significant abnormality. No evidence of pancreatitis. No evidence of pancreatic mass. No discrete liver mass. No dilated ducts.
== END | disposition home or self-care (01) ==
LOC: RADMRIMAIN 19:23
PROVIDERS: ATTEND Family Medicine
DX: K86.1 Other chronic pancreatitis (principal)
CPT/HCPCS: 74183; A9585

== ENCOUNTER 2022-10-20 07:22 | Day surgery (SDC) | payer BC ==
[2022-10-20 07:48] VITALS: RESP 18; TEMP 98.4
[2022-10-20] MEDS ORDERED: PROPOFOL 10 MG/ML 20 ML VIAL IV ONE (08:19)
--- NOTE | 2022-10-20 08:21 | P.GSHP ---
History of Present Illness H&P Date: 10/20/22 CHIEF COMPLAINT: Colon screen HISTORY OF PRESENT ILLNESS: The patient is a 62-year-old male who presents for colon screen. Lower endoscopy was offered for further evaluation and management. PAST MEDICAL HISTORY: Please see list. PAST SURGICAL HISTORY: Please see list. MEDICATIONS: Please see list. ALLERGIES: Please see list. SOCIAL HISTORY: No illicit drug use FAMILY HISTORY: No reports of Crohn disease or ulcerative colitis. REVIEW OF ORGAN SYSTEMS: CONSTITUTIONAL: No reports of fevers or chills. PHYSICAL EXAM: VITAL SIGNS: Stable GENERAL: Well-developed pleasant in no acute distress. HEENT: No scleral icterus. Extraocular movements grossly intact. Moist buccal mucosa. NECK: Supple without lymphadenopathy. CHEST: Unlabored respirations. Equal bilateral excursions. CARDIOVASCULAR: Regular rate and rhythm. Distal 2+ pulses. ABDOMEN: Soft, nontender, nondistended. MUSCULOSKELETAL: No clubbing, cyanosis, or edema. ASSESSMENT: 1. Colon screen. PLAN: 1. Recommend proceeding with a lower endoscopy Past Medical History Past Medical History: Asthma, COPD, Hypertension, Osteoarthritis (OA), Pneumonia, Sleep Apnea/CPAP/BIPAP Additional Past Medical History / Comment(s): Bronchitis, ANA does not use his device, chronic pancreatitis followed at [facility], uses pancreatic enzyme supplements , DDD, chronic back pain, abdominal pain, chronic bilateral lower leg edema, gout bilateral feet in the past, bilateral tinnitis, L hand crush injury with surgeries-index finger amp. History of Any Multi-Drug Resistant Organisms: None Reported Past Surgical History: Cholecystectomy, Orthopedic Surgery Additional Past Surgical History / Comment(s): Feeding tube placed and removed, pancreatic stent, EGDs/colonoscopies, bronchoscopy, lipoma excision L proximal humerus, left knee arthroscopies, L hand crush injury with surgeries. rt knee arthroscopy Past Anesthesia/Blood Transfusion Reactions: No Reported Reaction Additional Past Anesthesia/Blood Transfusion Reaction / Comment(s): has never received blood Smoking Status: Never smoker - Past Family History Father Family Medical History: Congestive Heart Failure (CHF), Diabetes Mellitus Additional Family Medical History / Comment(s): Father at the age of 75 yrs from CHF. Mother Family Medical History: Congestive Heart Failure (CHF), Diabetes Mellitus Additional Family Medical History / Comment(s): Mother at the age of 84 yrs from CHF Medications and Allergies Home Medications Medication Instructions Recorded Confirmed Type Budesonide-Formot 160-4.5 Mcg 2 puff INHALATION RT-BID 12/30/15 10/20/22 History [Symbicort 160-4.5 Mcg Inhaler] Bumetanide [BUMEX] 2 mg PO DAILY 12/30/15 10/20/22 History Cholecalciferol [Vitamin D3 (25 1,000 unit PO DAILY 06/15/17 10/20/22 History Mcg = 1000 Iu)] Losartan Potassium [Cozaar] 50 mg PO HS 06/15/17 10/20/22 History Multivitamins, Thera [Multivitamin 1 tab PO DAILY 06/15/17 10/20/22 History (formulary)] Vitamin A [Vitamin A (8,000 Units 8,000 unit PO DAILY 06/15/17 10/20/22 History = 2,400 MCG)] Doxepin [SINEquan] 50 mg PO HS PRN 03/23/18 10/20/22 History Acetaminophen Tab [Tylenol] 500 mg PO Q6HR PRN tab 03/26/18 10/20/22 Rx Albuterol Inhaler [Ventolin Hfa 1 - 2 puff INHALATION RT-QID PRN 03/29/18 10/20/22 History Inhaler] Ketoconazole 2% Shampoo [Nizoral] 1 applic TOPICAL Q4D 03/29/18 10/20/22 History Meloxicam [Mobic] 15 mg PO DAILY PRN 03/29/18 10/20/22 History Montelukast Sodium [Singulair] 10 mg PO HS 03/29/18 10/20/22 History Ibuprofen [Motrin] 800 mg PO TID PRN 06/29/18 10/20/22 History buprenorphine HCL [Belbuca] 900 mcg BC BID 05/14/19 10/20/22 History Allergies Allergy/AdvReac Type Severity Reaction Status Date / Time No Known Allergies Allergy Verified 10/20/22 07:38 Surgical - Exam Vital Signs Temp Pulse Resp BP Pulse Ox 98.4 F 88 18 156/85 95 10/20/22 07:45 10/20/22 07:45 10/20/22 07:45 10/20/22 07:45 10/20/22 07:45
--- NOTE | 2022-10-20 08:47 | P.PCN ---
Date of Procedure: 10/20/22 Description of Procedure: PREOPERATIVE DIAGNOSIS: Colonoscopy screening. Personal history colon polyps POSTOPERATIVE DIAGNOSIS: Colonoscopy screening. Diverticulosis, scattered With diverticulitis Personal history colon polyps OPERATION: Colonoscopy to the cecum, ileocecal valve and appendiceal orifice. SURGEON: Rachel Cuba MD. ANESTHESIA: MAC. INDICATIONS: The patient is a 60-year-old female who presents for colonoscopy screening. Benefits and risks were described and informed consent was obtained. DESCRIPTION OF PROCEDURE: The patient had undergone Sutab prep. The patient had been brought into the operating room and laid in the left lateral decubitus position. After adequate intravenous sedation, the rectum was examined with 2% lidocaine jelly. No external hemorrhoids were encountered. The rectal tone was within normal limits. No lesions were palpated in the rectal vault. An Olympus colonoscope was advanced until the cecum, ileocecal valve and appendiceal orifice were clearly viewed. The prep was good. Scattered diverticulosis with sigmoid diverticulitis, mild. Redundant sigmoid colon requiring abdominal wall pressure No large colonic polyps were found. Retroflexion of the scope demonstrated grade 1 internal hemorrhoids without active bleeding or inflammation. The colon was desufflated. The patient had tolerated the procedure well. Withdrawal time was over 6 minutes. FINDINGS: Aronchick preparation quality scale 2 (1-5) Internal hemorrhoids, grade 1 No external prolapsed hemorrhoids. No arteriovenous malformations. No adenomatous polyps. Redundant sigmoid colon with chronic abdominal wall pressure Sigmoid diverticulosis with mild diverticulitis RECOMMENDATIONS: Lower endoscopy in 5 years, 2027 Plan - Discharge Summary Discharge Rx Participant: No New Discharge Prescriptions: Continue Bumetanide [BUMEX] 2 mg PO DAILY Budesonide-Formot 160-4.5 Mcg [Symbicort 160-4.5 Mcg Inhaler] 2 puff INHALATION RT-BID Vitamin A [Vitamin A (8,000 Units = 2,400 MCG)] 8,000 unit PO DAILY Multivitamins, Thera [Multivitamin (formulary)] 1 tab PO DAILY Losartan Potassium [Cozaar] 50 mg PO HS Cholecalciferol [Vitamin D3 (25 Mcg = 1000 Iu)] 1,000 unit PO DAILY Doxepin [SINEquan] 50 mg PO HS PRN PRN Reason: Insomnia Acetaminophen Tab [Tylenol] 500 mg PO Q6HR PRN tab PRN Reason: Fever and/ or Mild Pain Meloxicam [Mobic] 15 mg PO DAILY PRN PRN Reason: Pain Ketoconazole 2% Shampoo [Nizoral] 1 applic TOPICAL Q4D Albuterol Inhaler [Ventolin Hfa Inhaler] 1 - 2 puff INHALATION RT-QID PRN PRN Reason: Shortness Of Breath Montelukast Sodium [Singulair] 10 mg PO HS Ibuprofen [Motrin] 800 mg PO TID PRN PRN Reason: Pain buprenorphine HCL [Belbuca] 900 mcg BC BID Discharge Medication List Budesonide-Formot 160-4.5 Mcg [Symbicort 160-4.5 Mcg Inhaler] 2 puff INHALATION RT-BID 12/30/15 [History] Bumetanide [BUMEX] 2 mg PO DAILY 12/30/15 [History] Cholecalciferol [Vitamin D3 (25 Mcg = 1000 Iu)] 1,000 unit PO DAILY 06/15/17 [History] Losartan Potassium [Cozaar] 50 mg PO HS 06/15/17 [History] Multivitamins, Thera [Multivitamin (formulary)] 1 tab PO DAILY 06/15/17 [History] Vitamin A [Vitamin A (8,000 Units = 2,400 MCG)] 8,000 unit PO DAILY 06/15/17 [History] Doxepin [SINEquan] 50 mg PO HS PRN 03/23/18 [History] Acetaminophen Tab [Tylenol] 500 mg PO Q6HR PRN tab 03/26/18 [Rx] Albuterol Inhaler [Ventolin Hfa Inhaler] 1 - 2 puff INHALATION RT-QID PRN 03/29/18 [History] Ketoconazole 2% Shampoo [Nizoral] 1 applic TOPICAL Q4D 03/29/18 [History] Meloxicam [Mobic] 15 mg PO DAILY PRN 03/29/18 [History] Montelukast Sodium [Singulair] 10 mg PO HS 03/29/18 [History] Ibuprofen [Motrin] 800 mg PO TID PRN 06/29/18 [History] buprenorphine HCL [Belbuca] 900 mcg BC BID 05/14/19 [History] Follow up Appointment(s)/Referral(s): Rachel Cuba MD [STAFF PHYSICIAN] - As Needed Patient Instructions/Handouts: Diverticulosis Diet (GEN), Diverticulitis (IP) Activity/Diet/Wound Care/Special Instructions: Repeat colonoscopy in 5 years, 2027 Discharge Disposition: HOME SELF-CARE
[2022-10-20 09:13] VITALS: BP 126/78; PULSE 80
== END 2022-10-20 09:38 | disposition home or self-care (01) ==
LOC: ORWHC2ENDO 07:22
PROVIDERS: ATTEND Surgery Plastic and Reconstructive Surgery
DX: Z12.11 Encounter for screening for malignant neoplasm of colon (principal); J44.9 Chronic obstructive pulmonary disease, unspecified; I10 Essential (primary) hypertension; M19.90 Unspecified osteoarthritis, unspecified site; G47.33 Obstructive sleep apnea (adult) (pediatric); J18.9 Pneumonia, unspecified organism; G89.29 Other chronic pain; M10.9 Gout, unspecified; Z90.49 Acquired absence of other specified parts of digestive tract; Z98.890 Other specified postprocedural states; Z83.3 Family history of diabetes mellitus; Z82.49 Family history of ischemic heart disease and other diseases of the circulatory system; Z79.899 Other long term (current) drug therapy; Z79.51 Long term (current) use of inhaled steroids; Z86.010 Personal history of colon polyps
CPT/HCPCS: 45378; J2704